=== PATIENT | male | born 1950 | race Caucasian/White ===

== ENCOUNTER 2020-01-05 13:25 | Outpatient (REF) | payer MEDICARE, SELFPAY ==
[2020-01-05 16:28] LABS: MANUAL DIFF FLAG NO
[2020-01-05 16:36] LABS: Basophils Absolute Auto 0.1 X10*3/uL (0.0-0.2); Basophils Percent Auto 0.7 % (0-2); Eosinophils Absolute Auto 0.2 X10*3/uL (0.0-0.4); Eosinophils Percent Auto 2.9 % (0-4); Hematocrit 45.7 % (42-52); Hemoglobin 15.4 g/dl (14.0-18.0); Imm Gran Abs Auto 0.02 X10*3/uL (0.00-0.03); Imm Gran Pct Auto 0.3 % (0.0-0.4); Lymphocytes Absolute Auto 2.1 X10*3/uL (1.2-4.9); Lymphocytes Percent Auto 27.6 % (20-40); Mean Corpuscular HGB Conc 33.7 g/dl (31.0-36.0); Mean Corpuscular Hemoglobin 30.1 pg (27.0-33.0); Mean Corpuscular Volume 89.4 fL (80-98); Mean Platelet Volume 10.8 fL (9.4-12.4); Monocytes Absolute Auto 0.6 X10*3/uL (0.1-1.2); Monocytes Percent Auto 7.9 % (2-11); Neutrophils Absolute Auto 4.6 X10*3/uL (2.0-8.3); Neutrophils Percent Auto 60.6 % (45-73); Platelet Count 238 X10*3/uL (160-400); Red Blood Count 5.11 X10*6/uL (4.60-5.80); Red Cell Distribution Width 14.2 % (11.0-16.0); White Blood Count 7.6 X10*3/uL (4.8-10.8)
[2020-01-05 17:03] LABS: Alanine Aminotransferase 14 U/L (0-40); Albumin Level 4.3 g/dL (3.5-5.0); Alkaline Phosphatase 95 U/L (39-117); Anion Gap 14 (12-20); Aspartate Amino Transferase 13 U/L (5-37); Bilirubin Total 0.4 mg/dL (0.0-1.0); Blood Urea Nitrogen 22 mg/dL (9-16); Calcium 8.9 mg/dL (8.4-10.2); Carbon Dioxide 26 mmol/L (22-29); Chloride 105 mmol/L (96-108); Estimated Glomerular Filt Rate 46; Glucose Random 150 mg/dL (60-115); Potassium 3.9 mmol/l (3.3-5.1); Sodium 141 mmol/L (135-145); Total Protein 6.8 g/dL (6.5-8.0)
== END 2020-01-05 13:26 | disposition home or self-care (01) ==
LOC: HO.HMGCLDS 13:25
PROVIDERS: PCP Internal Medicine; Visit Provider Internal Medicine
DX: B36.0 Pityriasis versicolor (principal); F40.243 Fear of flying; I12.9 Hypertensive chronic kidney disease with stage 1 through stage 4 chronic kidney disease, or unspecified chronic kidney disease; N18.9 Chronic kidney disease, unspecified; R60.0 Localized edema; Z72.0 Tobacco use
CPT/HCPCS: 36415; 80053; 85025

== ENCOUNTER 2020-02-23 09:31 | Outpatient (REF) | payer MEDICARE, SELFPAY ==
--- NOTE | 2020-02-23 09:36 | CT_ITS ---
EXAMINATION: CT CHEST WITHOUT CONTRAST CLINICAL INFORMATION: Malignant neoplasm of the upper lobe, right bronchus. COMPARISON: Multiple priors, most recently 08/16/2019 TECHNIQUE: Multidetector volumetric CT imaging of the chest was done. Axial MIP volume rendering provided. Sagittal and coronal reformatted images were obtained. This CT examination was performed using dose optimization techniques as appropriate, variously including the following: *Automated exposure control *Adjustment of mA and/or kV according to patient size (this includes techniques or standardized protocols for targeted exams where dose is matched to indication/reason for exam; i.e. extremities or head) *Use of iterative reconstruction technique DLP: 150 mGy-cm FINDINGS: BENCH LOOM WEAVER: Right-sided volume loss. LUNGS: Status post right upper lobectomy. Moderate emphysema, mostly centrilobular. No consolidation. No pneumothorax. Unchanged right middle lobe ovoid 0.4 cm nodule on series 7 image 172. 0.3 cm left upper lobe nodule on series 7 image 256 is unchanged. 0.4 cm left upper lobe nodule on series 7 image 286 is unchanged. No new pulmonary nodules. MEDIASTINUM: Normal heart size. No pericardial effusion. No mediastinal lymphadenopathy. Coronary artery calcifications are noted. PLEURA: There is no pleural effusion. No pleural mass or thickening. AXILLA: No lymphadenopathy. UPPER ABDOMEN: Unremarkable. OSSEOUS STRUCTURES: No acute or suspicious osseous abnormality. Mild degenerative changes in the spine. CT/CT chest wo con IMPRESSION: Emphysema. Postsurgical changes of right upper lobectomy. Small pulmonary nodules remain unchanged.
== END 2020-02-23 09:32 | disposition home or self-care (01) ==
LOC: HO.CT 09:31
PROVIDERS: Visit Provider Surgery
DX: C34.11 Malignant neoplasm of upper lobe, right bronchus or lung (principal)
CPT/HCPCS: 71250

== ENCOUNTER → 2020-03-16 09:32 | Outpatient (BNVA) | payer MEDICARE, SELFPAY | PROVIDERS: PCP Internal Medicine; Visit Provider Surgery | DX: C7A.8 Other malignant neuroendocrine tumors (principal) | CPT/HCPCS: 99214 ==

== ENCOUNTER 2020-04-09 13:48 | Outpatient (REF) | payer MEDICARE, SELFPAY ==
[2020-04-09 17:16] LABS: Alanine Aminotransferase 11 U/L (0-40); Albumin Level 4.2 g/dL (3.5-5.0); Alkaline Phosphatase 92 U/L (39-117); Anion Gap 15 (12-20); Aspartate Amino Transferase 13 U/L (5-37); Bilirubin Total 0.3 mg/dL (0.0-1.0); Blood Urea Nitrogen 23 mg/dL (9-16); Calcium 8.9 mg/dL (8.4-10.2); Carbon Dioxide 29 mmol/L (22-29); Chloride 101 mmol/L (96-108); Estimated Glomerular Filt Rate 42; Glucose Random 147 mg/dL (60-115); Sodium 141 mmol/L (135-145)
== END 2020-04-09 13:49 | disposition home or self-care (01) ==
LOC: HO.HMGCLDS 13:48
PROVIDERS: PCP Internal Medicine; Visit Provider Internal Medicine
DX: I12.9 Hypertensive chronic kidney disease with stage 1 through stage 4 chronic kidney disease, or unspecified chronic kidney disease (principal); N18.9 Chronic kidney disease, unspecified
CPT/HCPCS: 36415; 80053

== ENCOUNTER 2020-06-27 13:02 | Outpatient (REF) | payer MEDICARE, SELFPAY ==
[2020-06-27 14:00] LABS: MANUAL DIFF FLAG NO
[2020-06-27 14:04] LABS: Basophils Percent Auto 0.5 % (0-2); Eosinophils Absolute Auto 0.1 X10*3/uL (0.0-0.4); Eosinophils Percent Auto 1.5 % (0-4); Hematocrit 47.3 % (42-52); Hemoglobin 15.4 g/dl (14.0-18.0); Imm Gran Abs Auto 0.03 X10*3/uL (0.00-0.03); Imm Gran Pct Auto 0.4 % (0.0-0.4); Lymphocytes Absolute Auto 1.6 X10*3/uL (1.2-4.9); Lymphocytes Percent Auto 19.1 % (20-40); Mean Corpuscular HGB Conc 32.6 g/dl (31.0-36.0); Mean Corpuscular Hemoglobin 29.5 pg (27.0-33.0); Mean Corpuscular Volume 90.6 fL (80-98); Mean Platelet Volume 10.3 fL (9.4-12.4); Monocytes Absolute Auto 0.7 X10*3/uL (0.1-1.2); Monocytes Percent Auto 8.3 % (2-11); Neutrophils Percent Auto 70.2 % (45-73); Platelet Count 211 X10*3/uL (160-400); Red Blood Count 5.22 X10*6/uL (4.60-5.80); Red Cell Distribution Width 14.1 % (11.0-16.0); White Blood Count 8.6 X10*3/uL (4.8-10.8)
[2020-06-27 14:41] LABS: Albumin Level 4.3 g/dL (3.5-5.0); Anion Gap 17 (12-20); Blood Urea Nitrogen 27 mg/dL (9-16); Carbon Dioxide 24 mmol/L (22-29); Chloride 102 mmol/L (96-108); Estimated Glomerular Filt Rate 39; Magnesium 2.2 mg/dL (1.6-2.6); Potassium 3.9 mmol/L (3.3-5.1); Sodium 139 mmol/L (135-145)
[2020-06-27 15:04] LABS: Vitamin D 25-OH Total 42.8 ng/mL (>30)
[2020-06-27 15:14] LABS: Renal w Reflex Lab Use Only Order verified
[2020-06-27 16:39] LABS: Glucose Urine UA NEG (NEG); Leukocyte Esterase Urine NEG (NEG); Nitrite Urine NEG (NEG); Specific Gravity - Urine 1.025 (1.005-1.025); Urine Blood NEG (NEG); Urine Ketones NEG (NEG); Urine Protein NEG (NEG-TRACE)
[2020-06-27 16:43] LABS: Appearance Urine CLEAR; Color Urine YELLOW
[2020-06-27 17:04] LABS: Creatinine Urine 207.83 mg/dL; Microalbum/Creatinine Ratio Ur 21.1 ug/mg cr; Protein/Creatinine Ratio, Ur 0.06 (<0.2); Total Protein Urine Random 13 mg/dL (<12)
[2020-06-27 17:40] LABS: Mucus Urine TRACE /LPF; RBC Urine 0 /HPF (0); Squamous Epithelial Cell Urine TRACE /LPF; WBC Urine 0 /HPF (0-4)
[2020-06-27 20:24] LABS: Renal w Reflex-LAB USE ONLY Order Verified
[2020-06-28 18:11] LABS: Calcium (PTHI) 9.5 mg/dL (8.6-10.3); PTHI 34 pg/mL (14-64)
== END 2020-06-27 13:03 | disposition home or self-care (01) ==
LOC: HO.HMGCLDS 13:02
PROVIDERS: PCP Internal Medicine; Visit Provider Internal Medicine Nephrology
DX: I12.9 Hypertensive chronic kidney disease with stage 1 through stage 4 chronic kidney disease, or unspecified chronic kidney disease (principal); N18.30 Chronic kidney disease, stage 3 unspecified; E78.5 Hyperlipidemia, unspecified; K21.9 Gastro-esophageal reflux disease without esophagitis
CPT/HCPCS: 36415; 80051; 81001; 82040; 82043; 82306; 82310; 82565; 83735; 83970; 84100; 84156; 84520; 85025

== ENCOUNTER 2020-08-31 06:12 | Outpatient (REF) | payer MEDICARE, SELFPAY ==
[2020-08-31 12:01] LABS: Cholesterol 170 mg/dL; HDL Cholesterol 35 mg/dL; LDL Cholesterol Calculated 87 mg/dl; Triglycerides 244 mg/dL
[2020-08-31 12:23] LABS: Prostate Specific Antigen 0.69 ng/mL (<0.05-4.0)
== END 2020-08-31 06:13 | disposition home or self-care (01) ==
LOC: HO.HMGCLDS 06:12
PROVIDERS: PCP Internal Medicine; Visit Provider Internal Medicine
DX: Z12.5 Encounter for screening for malignant neoplasm of prostate (principal); I12.9 Hypertensive chronic kidney disease with stage 1 through stage 4 chronic kidney disease, or unspecified chronic kidney disease; N18.9 Chronic kidney disease, unspecified; N40.1 Benign prostatic hyperplasia with lower urinary tract symptoms; Z72.0 Tobacco use
CPT/HCPCS: 36415; 80061; 84153; 84443

== ENCOUNTER 2020-12-11 06:07 | Outpatient (REF) | payer MEDICARE, SELFPAY ==
[2020-12-11 12:34] LABS: Prostate Specific Antigen 0.36 ng/mL (<0.05-4.0)
[2020-12-11 12:35] LABS: Alanine Aminotransferase 11 U/L (0-40); Albumin Level 4.1 g/dL (3.5-5.0); Alkaline Phosphatase 81 U/L (39-117); Anion Gap 14 (12-20); Aspartate Amino Transferase 13 U/L (5-37); Bilirubin Total 0.7 mg/dL (0.0-1.0); Blood Urea Nitrogen 27 mg/dL (9-16); Calcium 9.2 mg/dL (8.4-10.2); Carbon Dioxide 23 mmol/L (22-29); Chloride 109 mmol/L (96-108); Cholesterol 169 mg/dL; Estimated Glomerular Filt Rate 42; Glucose Random 124 mg/dL (60-115); HDL Cholesterol 37 mg/dL; LDL Cholesterol Calculated 96 mg/dl; Potassium 4.3 mmol/L (3.3-5.1); Sodium 142 mmol/L (135-145); Total Protein 6.3 g/dL (6.5-8.0); Triglycerides 184 mg/dL
== END 2020-12-11 06:08 | disposition home or self-care (01) ==
LOC: HO.HMGCLDS 06:07
PROVIDERS: PCP Internal Medicine; Visit Provider Internal Medicine
DX: Z12.5 Encounter for screening for malignant neoplasm of prostate (principal); I12.9 Hypertensive chronic kidney disease with stage 1 through stage 4 chronic kidney disease, or unspecified chronic kidney disease; N18.9 Chronic kidney disease, unspecified; J44.9 Chronic obstructive pulmonary disease, unspecified; N40.1 Benign prostatic hyperplasia with lower urinary tract symptoms; Z72.0 Tobacco use
CPT/HCPCS: 36415; 80053; 80061; 84153

== ENCOUNTER 2021-01-14 19:43 | Emergency (ER) | payer MEDICARE, SELFPAY ==
--- NOTE | ~2021-01-14 | XR_ITS ---
EXAMINATION: XR LUMBOSACRAL SPINE CLINICAL INFORMATION: Pain after heavy lifting. Evaluate for fracture. COMPARISON: No similar priors. TECHNIQUE: Three views of the lumbosacral spine. FINDINGS: There are 5 nonrib-bearing lumbar-type vertebral bodies. Anatomic alignment is maintained. There is mild vertebral body height loss at L5 which could be degenerative in nature as there is associated disc space narrowing, facet arthropathy and osteophytes at L5-S1 leading to certain degree of neural foraminal narrowing. There is also disc space narrowing at L2-L3. Other vertebral interdisc spaces are preserved. Nonobstructive bowel gas pattern. Moderate stool burden throughout the colon. Atherosclerotic disease of the abdominal aorta. XR/XR lumbar spine 2-3V IMPRESSION: Mild compression deformity at L5 could be degenerative in nature. Correlate clinically for tenderness at this site. No other compression deformities. Anatomic alignment is maintained. At L5-S1 there is moderate disc space narrowing and bilateral facet arthropathy leading to certain degree of central spinal canal narrowing and neural foraminal encroachment. Involvement of the nerve roots is best assessed with an MR of lumbar spine and this should be considered if clinically indicated. There is also mild to moderate disc space narrowing at L2-L3.
[2021-01-14 19:58] VITALS: BP 142/79; PULSE 98; RESP 18; TEMP 37.3; O2SAT 94; BMI 25.1
[2021-01-14] MEDS: Cyclobenzaprine HCl 10 MG TABLET PO (23:00)
[2021-01-14] MEDS: Ketorolac Tromethamine 15 MG/ML VIAL 30 MG IM (23:01)
--- NOTE | 2021-01-14 23:30 | ED.BACK ---
HPI - Back Pain/Injury General Chief Complaint: Back Pain/Injury Stated Complaint: Back and leg pain Time Seen by Provider: 01/14/21 22:30 Source: patient Mode of arrival: ambulatory Limitations: no limitations History of Present Illness HPI Narrative: Patient presents to ED for lower back pain after heavy lifting. Patient states this occurred yesterday. Denies any cracking or popping sound of lower back pain. Patient Hitting head or loss of consciousness. Patient denies any abdominal pain, dysuria, hematuria, flank pain, fever, chills, nausea, vomiting, or abdominal pain MD elicited complaint: back pain Related Data Home Medications Medication Instructions Recorded Confirmed lisinopril 20 1 tab PO DAILY 03/16/20 03/16/20 mg-hydrochlorothiazide 12.5 mg tablet omeprazole 20 mg capsule,delayed 20 mg PO DAILY 03/16/20 03/16/20 release pravastatin 40 mg tablet 40 mg PO DAILY 03/16/20 03/16/20 tamsulosin 0.4 mg capsule 0.4 mg PO BEDTIME 03/16/20 03/16/20 Previous Rx's Medication Instructions Recorded ketorolac 10 mg tablet 10 mg PO QID PRN 5 Days #20 tab 01/15/21 oxycodone-acetaminophen 5 mg-325 1 tab PO TID PRN #9 tab 01/15/21 mg tablet (Percocet) prednisone 20 mg tablet 60 mg PO DAILY 5 Days #15 tab 01/15/21 Allergies Allergy/AdvReac Type Severity Reaction Status Date / Time Sulfa (Sulfonamide Allergy Severe Fever Verified 01/14/21 21:57 Antibiotics) sulfamethoxazole Allergy Intermediate FEVER Verified 01/14/21 21:57 [From BACTRIM] trimethoprim [From BACTRIM] Allergy Intermediate FEVER Verified 01/14/21 21:57 Review of Systems Review of Systems: Yes all other systems are reviewed and are negative Constitutional: Constitutional: Reports as per HPI and Reports no additional constitutional complaints Eyes: Eyes: Reports as per HPI and Reports no additional eye complaints ENT: Reports system reviewed and no additional complaints, except as documented and Reports as per HPI Cardiovascular: Cardiovascular: Reports as per HPI and Reports no additional cardiovascular complaints Respiratory: Respiratory: Reports as per HPI and Reports no additional respiratory complaints Gastrointestinal: Gastrointestinal: Reports as per HPI and Reports no additional gastrointestinal complaints Genitourinary: Genitourinary: Reports no additional male genitourinary complaints and Reports as per HPI Musculoskeletal: Musculoskeletal: Reports no additional musculoskeletal complaints, Reports as per HPI and Reports back pain Neurologic: Reports system reviewed and no additional complaints, except as documented and Reports as per HPI Psychiatric: Psychiatric: Reports no additional psychiatric complaints and Reports as per HPI [facility]LY [facility] Past Medical History Medical History Anxiety BPH (benign prostatic hyperplasia) CKD (chronic kidney disease) Diverticulosis Emphysema lung GERD (gastroesophageal reflux disease) Hyperlipidemia Hypertension IFG (impaired fasting glucose) Lumbar radiculopathy Neuroendocrine cancer AUBRIE (obstructive sleep apnea) Primary cancer of right upper lobe of lung Smoker Surgical History History of lobectomy of lung Social History Social History Advance Directives: No Physical Exam Vital Signs: Vital Signs: Last Vital Signs Temp 97.9 F 01/14/21 23:44 Pulse 85 01/14/21 23:44 Resp 20 01/14/21 23:44 BP 179/84 H 01/14/21 23:44 Pulse Ox 96 01/14/21 23:44 Body Mass Index 25.1 Const: General: cooperative, healthy appearing, comfortable, no acute distress, well developed, alert, awake and Physically active Orientation/consciousness: patient oriented x3 HENMT: Head: Yes normal to inspection, Yes No palpable skull fracture present, Yes normocephalic, Yes atraumatic and No abrasion Eyes: General: appearance normal, both eyes and all related structures Neck: Neck: Yes normal visual inspection, Yes full ROM, Yes no lymphadenopathy, Yes no meningeal signs, Yes trachea midline, Yes supple and No tender Chest: Chest palpation & inspection: normal inspection of the chest and normal palpation of entire chest wall Resp: Effort & Inspection: normal respiratory effort and able to speak in complete sentences Auscultation: clear to auscultation bilaterally Cardio: Jugular venous distension: no JVD Heart sounds: S1 normal heart sound present and S2 normal heart sound present GI: Inspection: Yes normal to inspection and No abdominal wall ecchymosis Palpation (GI): Soft to palpation, not firm, nontender, no guarding and not rigid : General: No CVA tenderness and Yes no CVA tenderness Back/Spine/Pelvis: Back: no CVA tenderness, No CVA tenderness and back tenderness (left lateral lumbar muscular pain.) Skin: General skin exam: no rashes or lesions noted and elasticity normal Neuro: General: patient oriented x3, gait normal, no meningeal signs and CN's II-XI intact bilaterally Cranial nerves: Yes CN's II-XII intact bilaterally Extrem: General: Yes normal to inspection and Yes full ROM Psych: Appearance: grossly normal, well kempt and not disheveled Course Course Course Narrative: Patient sent for lumbar x-ray. Toradol and flexeril ordered. Reevaluation(s) Reevaluation #1: X-ray shows severe arthritis with possible nerve impingement. not Suspecting cauda equinus syndrome or epidural abscess. Will discharge with pain meds. Patient informed to follow-up with primary care provider for MRI and possible referral to spine surgeon. Patient given report of x-ray to give the PCP. Time: 12:29 MDM - Back Pain/Injury MDM Narrative Medical decision making narrative: Lumbar radiculopathy Discharge Plan Discharge Clinical Impression: Lumbar radiculopathy Patient Disposition: Home, Self-Care Instructions: Lumbar Radiculopathy (ED) Additional Instructions: X-ray shows severe arthritis with possible nerve impingement. You will need an MRI for further evaluation. Please follow-up with primary care provider immediately. Return to the ED for any urinary/bowel incontinence, severe back pain, paralysis of extremities, abdominal pain, nausea, vomiting, fever, chills, or any other concerning symptoms. Prescriptions: New ketorolac 10 mg tablet 10 mg PO QID PRN (Reason: pain) 5 Days Qty: 20 RF: 0 prednisone 20 mg tablet 60 mg PO DAILY 5 Days Qty: 15 RF: 0 oxycodone-acetaminophen [Percocet] 5-325 mg tablet 1 tab PO TID PRN (Reason: pain) Qty: 9 RF: 0 No Action lisinopril-hydrochlorothiazide 20-12.5 mg tablet 1 tab PO DAILY RF: 0 tamsulosin 0.4 mg capsule 0.4 mg PO BEDTIME RF: 0 pravastatin 40 mg tablet 40 mg PO DAILY RF: 0 omeprazole 20 mg capsule,delayed release(DR/EC) 20 mg PO DAILY RF: 0 Stand Alone Forms: Work/School Release Interventions: ED Discharge Assessment Last Done: 01/15/21 01:02 Discharge Date/Time: 01/15/21 01:10 Print Language: Pashto
[2021-01-14 23:44] VITALS: BP 179/84; PULSE 85; RESP 20; TEMP 36.6; O2SAT 96
[2021-01-15] MEDS: oxyCODONE HCl Immed Release 5 MG TABLET PO (00:03)
== END 2021-01-15 01:10 | disposition home or self-care (01) ==
PROVIDERS: Emergency Provider Internal Medicine; PCP Internal Medicine
DX: M54.16 Radiculopathy, lumbar region (principal); I12.9 Hypertensive chronic kidney disease with stage 1 through stage 4 chronic kidney disease, or unspecified chronic kidney disease; N18.9 Chronic kidney disease, unspecified
CPT/HCPCS: 72100; 96372; 99284; J1885

== ENCOUNTER 2021-02-15 10:57 | Outpatient (REF) | payer MEDICARE, SELFPAY ==
[2021-02-15 14:00] LABS: Hematocrit 47.3 % (42.0-52.0); Hemoglobin 15.4 g/dl (14.0-18.0); Mean Corpuscular HGB Conc 32.6 g/dl (31.0-36.0); Mean Corpuscular Hemoglobin 29.4 pg (27.0-33.0); Mean Corpuscular Volume 90.3 fL (80.0-98.0); Mean Platelet Volume 10.4 fL (9.4-12.4); Platelet Count 299 X10*3/uL (160-400); Red Blood Count 5.24 X10*6/uL (4.60-5.80); Red Cell Distribution Width 14.2 % (11.0-16.0); White Blood Count 8.2 X10*3/uL (4.8-10.8)
[2021-02-15 14:11] LABS: Appearance Urine CLEAR; Color Urine YELLOW; Glucose Urine UA NEG (NEG); Leukocyte Esterase Urine NEG (NEG); Nitrite Urine NEG (NEG); PH 5.5 (5.0-8.0); Urine Blood NEG (NEG); Urine Ketones NEG (NEG); Urine Protein NEG (NEG-TRACE)
[2021-02-15 14:21] LABS: Albumin Level 4.6 g/dL (3.5-5.0); Anion Gap 15 (12-20); Blood Urea Nitrogen 29 mg/dL (9-16); Calcium 9.4 mg/dL (8.4-10.2); Carbon Dioxide 24 mmol/L (22-29); Chloride 103 mmol/L (96-108); Estimated Glomerular Filt Rate 40; Magnesium 2.3 mg/dL (1.6-2.6); Phosphorus 3.1 mg/dL (2.7-4.5); Potassium 4.2 mmol/L (3.3-5.1); Sodium 138 mmol/L (135-145)
[2021-02-15 14:25] LABS: RBC Urine 0 /HPF (0); Squamous Epithelial Cell Urine TRACE /LPF; WBC Urine 0 /HPF (0-4)
[2021-02-15 14:27] LABS: Creatinine Urine 103.09 mg/dL; Microalbum/Creatinine Ratio Ur 6.7 ug/mg cr; Total Protein Urine Random < 7 mg/dL (<12)
[2021-02-15 14:42] LABS: Vitamin D 25-OH Total 56.7 ng/mL (>30)
[2021-02-18 12:01] LABS: Calcium (PTHI) 9.8 mg/dL (8.6-10.3); PTHI 33 pg/mL (14-64)
== END 2021-02-15 10:58 | disposition home or self-care (01) ==
LOC: HO.HMGCLDS 10:57
PROVIDERS: PCP Internal Medicine; Visit Provider Internal Medicine Nephrology
DX: E78.5 Hyperlipidemia, unspecified (principal); I12.9 Hypertensive chronic kidney disease with stage 1 through stage 4 chronic kidney disease, or unspecified chronic kidney disease; N18.32 Chronic kidney disease, stage 3b
CPT/HCPCS: 36415; 80051; 81001; 82040; 82043; 82306; 82310; 82565; 83735; 83970; 84100; 84156; 84520; 85027; 87086

== ENCOUNTER 2021-02-18 06:04 | Outpatient (REF) | payer MEDICARE, SELFPAY ==
--- NOTE | ~2021-02-18 | CT_ITS ---
EXAMINATION: CT CHEST WITHOUT CONTRAST CLINICAL INFORMATION: Neuroendocrine carcinoma COMPARISON: Previous chest CT scans most recent February 2020 TECHNIQUE: Multidetector volumetric CT imaging of the chest was done. Axial MIP volume rendering provided. Sagittal and coronal reformatted images were obtained. This CT examination was performed using dose optimization techniques as appropriate, variously including the following: *Automated exposure control *Adjustment of mA and/or kV according to patient size (this includes techniques or standardized protocols for targeted exams where dose is matched to indication/reason for exam; i.e. extremities or head) *Use of iterative reconstruction technique DLP: 164 mGy-cm FINDINGS: LUNGS: There is evidence of emphysema. There are postoperative changes from right upper lobe lobectomy. There are small pulmonary nodules that are stable, largest measuring 4 mm in the right upper lobe axial image 144 series 5. No new pulmonary nodule is seen. MEDIASTINUM: There is coronary artery calcification. The mediastinum is otherwise normal. PLEURA: There is no pleural effusion. No pleural mass or thickening. AXILLA: No lymphadenopathy. UPPER ABDOMEN: Unremarkable. OSSEOUS STRUCTURES: There are mild degenerative changes of the spine. CT/CT chest wo con IMPRESSION: Emphysema. Stable postsurgical changes following right upper lobe lobectomy. Small pulmonary nodules or micronodules.
[2021-02-18 11:42] LABS: MANUAL DIFF FLAG NO
[2021-02-18 11:54] LABS: Basophils Absolute Auto 0.1 X10*3/uL (0.0-0.2); Basophils Percent Auto 0.7 % (0-2); Eosinophils Absolute Auto 0.3 X10*3/uL (0.0-0.4); Eosinophils Percent Auto 2.6 % (0-4); Hematocrit 47.2 % (42.0-52.0); Hemoglobin 14.9 g/dl (14.0-18.0); Imm Gran Abs Auto 0.04 X10*3/uL (0.00-0.03); Imm Gran Pct Auto 0.4 % (0.0-0.4); Lymphocytes Absolute Auto 2.2 X10*3/uL (1.2-4.9); Lymphocytes Percent Auto 22.5 % (20-40); Mean Corpuscular HGB Conc 31.6 g/dl (31.0-36.0); Mean Platelet Volume 10.7 fL (9.4-12.4); Monocytes Absolute Auto 1.1 X10*3/uL (0.1-1.2); Monocytes Percent Auto 10.8 % (2-11); Neutrophils Absolute Auto 6.2 x10*3/uL (2.0-8.3); Platelet Count 278 X10*3/uL (160-400); Red Blood Count 5.13 X10*6/uL (4.60-5.80); White Blood Count 9.8 X10*3/uL (4.8-10.8)
[2021-02-18 12:23] LABS: Alanine Aminotransferase 17 U/L (0-40); Albumin Level 4.4 g/dL (3.5-5.0); Alkaline Phosphatase 69 U/L (39-117); Anion Gap 19 (12-20); Aspartate Amino Transferase 16 U/L (5-37); Bilirubin Total 0.7 mg/dL (0.0-1.0); Blood Urea Nitrogen 28 mg/dL (9-16); Calcium 9.5 mg/dL (8.4-10.2); Carbon Dioxide 23 mmol/L (22-29); Chloride 106 mmol/L (96-108); Cholesterol 164 mg/dL; Estimated Glomerular Filt Rate 40; Glucose Random 125 mg/dL (60-115); HDL Cholesterol 38 mg/dL; LDL Cholesterol Calculated 86 mg/dl; Potassium 4.7 mmol/L (3.3-5.1); Sodium 143 mmol/L (135-145); Total Protein 6.9 g/dL (6.5-8.0); Triglycerides 204 mg/dL
[2021-02-18 12:29] LABS: Thyroid Stimulating Hormone 1.19 uIU/mL (0.32-4.0)
== END 2021-02-18 06:05 | disposition home or self-care (01) ==
LOC: HO.CT 06:04
PROVIDERS: PCP Internal Medicine; Visit Provider Surgery
DX: C7A.8 Other malignant neuroendocrine tumors (principal); E78.00 Pure hypercholesterolemia, unspecified; I10 Essential (primary) hypertension; M51.16 Intervertebral disc disorders with radiculopathy, lumbar region; R53.83 Other fatigue
CPT/HCPCS: 36415; 71250; 80053; 80061; 84443; 85025

== ENCOUNTER → 2021-03-08 10:13 | Outpatient (BNVA) | payer MEDICARE, SELFPAY | PROVIDERS: PCP Internal Medicine; Visit Provider Surgery | DX: C7A.8 Other malignant neuroendocrine tumors (principal); Z79.899 Other long term (current) drug therapy; Z79.891 Long term (current) use of opiate analgesic | CPT/HCPCS: 99212 ==

== ENCOUNTER 2021-03-19 07:57 | Outpatient (REF) | payer MEDICARE, SELFPAY ==
--- NOTE | ~2021-03-19 | MR_ITS ---
EXAMINATION: MR LUMBAR SPINE WITHOUT CONTRAST CLINICAL INFORMATION: Lumbar radiculopathy. History of lung carcinoma. Low back pain. COMPARISON: Lumbar spine radiographs 01/14/2021. TECHNIQUE: MRI of the lumbar spine was obtained using routine sequences without contrast. FINDINGS: Alignment is normal. Vertebral body heights are preserved. There are type II degenerative endplate changes at L2-L3. No acute bone marrow signal changes. There is slight loss of intervertebral disc height and T2 signal intensity at multiple levels related to disc degeneration. The tip of the conus medullaris is located at L1. No mass effect on the conus. Visualized distal cord signal intensity is normal. At L1-L2 the annular contour is normal. No canal or neuroforaminal compromise. At L2-L3 there is a slightly bulging disc. No canal stenosis. No mass effect on the traversing or foraminal nerve roots. At L3-L4 there is a shallow left subarticular protrusion superimposed upon a slightly bulging disc causing subtle abutment of the left traversing L4 nerve roots. No canal stenosis. No foraminal nerve root compression. At L4-L5 there is a right foraminal extrusion superimposed upon a bulging disc causing severe compression of the right L4 foraminal nerve root. No canal stenosis. Subarticular zone narrowing causes subtle abutment of both traversing L5 nerve roots. At L5-S1 the annular contour is normal. Bilateral facet degenerative change. No canal stenosis. No mass effect on the traversing or foraminal nerve roots. 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 There is a well marginated benign-appearing cystic lesion arising from the lower pole of the right kidney. There is a questionable rounded solid lesion within the left kidney measuring 1.7 cm in diameter. MR/MR lumbar spine wo con IMPRESSION: Disc degeneration at multiple levels within the lumbar spine. A right foraminal extrusion at L4-L5 causes severe compression of the right L4 foraminal nerve root. There is also subtle abutment of both traversing L5 nerve roots related to degenerative changes at L4-L5 and a shallow left subarticular protrusion at L3-L4 causing subtle abutment on the left traversing L4 nerve roots. Of note there is a rounded 1.7 cm nonspecific lesion within the left kidney that does not appear to represent a simple cyst. This finding is worrisome for a solid lesion. A dedicated dynamic contrast enhanced CT or MRI of the kidneys is recommended for better anatomic characterization.
== END 2021-03-19 07:58 | disposition home or self-care (01) ==
LOC: HO.MRI 07:57
PROVIDERS: PCP Internal Medicine; Visit Provider Internal Medicine
DX: M54.16 Radiculopathy, lumbar region (principal); Z85.118 Personal history of other malignant neoplasm of bronchus and lung
CPT/HCPCS: 72148

== ENCOUNTER 2021-04-10 14:34 | Outpatient (REF) | payer MEDICARE, SELFPAY ==
--- NOTE | ~2021-04-10 | US_ITS ---
EXAMINATION: US RETROPERITONEAL LIMITED (RENAL ONLY) CLINICAL INFORMATION: Hyperlipidemia. Hypertension. COMPARISON: Renal ultrasound 11/23/2018. CT chest 08/16/2019. CT PET exam 02/18/2018. TECHNIQUE: Real-time imaging of the kidneys. FINDINGS: RIGHT KIDNEY: 10.6 x 8.4 x 7.4 cm (SAG x AP x TRV). The kidney is normal in size, contour, and echogenicity. Renal cortical thickness is normal. No renal calculi or hydronephrosis. There is an anechoic cyst with posterior septation in the midpole measuring 7.4 x 5.4 x 6.6 cm. Previously it measured 6.5 x 4.9 x 7.0 cm. In addition, there is a simple cyst adjacent to it measuring 3.6 x 2.4 x 3.1 cm. Previously it measured 3.2 x 2.8 x 2.5 cm. LEFT KIDNEY: 9.8 x 4.8 x 4.9 cm (SAG x AP x TRV). The kidney is normal in size, contour, and echogenicity. Renal cortical thickness is normal. No hydronephrosis. There are several anechoic cysts. An upper pole cyst measures 1.0 x 0.77 x 1.0 cm and upper pole lateral cyst measuring 2.1 x 1.7 x 1.9 cm. Two midpole cysts measure 1.3 x 1.3 x 1.0 cm and 0.4 x 0.16 x 0.34 cm. There is a solid hyperechoic lesion in the midpole measuring 1 7 x 1.6 x 1.5 cm with increased vascularity. The lesion was not described on the previous ultrasound or partially visualized kidneys on the previous CT chest exams. US/US renal BI IMPRESSION: 1. Bilateral simple renal cysts. A complex cyst with septation midpole right kidney. 2. Barely visible hyperechoic slightly vascular lesion midpole left kidney not visualized on previous ultrasound or previous CT PET exam or CT chest exam 08/16/2019. Differential diagnosis may include angiomyolipoma, renal cell carcinoma or a complicated cyst. Recommend CT kidneys with contrast with and without and delayed images.
== END 2021-04-10 14:35 | disposition home or self-care (01) ==
LOC: HO.HMGCX 14:34
PROVIDERS: PCP Internal Medicine; Visit Provider Internal Medicine
DX: I10 Essential (primary) hypertension (principal); E78.5 Hyperlipidemia, unspecified; K21.9 Gastro-esophageal reflux disease without esophagitis
CPT/HCPCS: 76775

== ENCOUNTER 2021-06-10 05:59 | Outpatient (REF) | payer MEDICARE, SELFPAY ==
[2021-06-10 11:59] LABS: Alanine Aminotransferase 11 U/L (0-40); Albumin Level 4.3 g/dL (3.5-5.0); Alkaline Phosphatase 74 U/L (39-117); Anion Gap 10 (12-20); Aspartate Amino Transferase 12 U/L (5-37); Bilirubin Total 0.5 mg/dL (0.0-1.0); Blood Urea Nitrogen 29 mg/dL (9-16); Calcium 9.4 mg/dL (8.4-10.2); Carbon Dioxide 30 mmol/L (22-29); Chloride 105 mmol/L (96-108); Estimated Glomerular Filt Rate 38; Glucose Random 126 mg/dL (60-115); Potassium 4.4 mmol/L (3.3-5.1); Sodium 141 mmol/L (135-145); Total Protein 6.8 g/dL (6.5-8.0)
== END 2021-06-10 06:00 | disposition home or self-care (01) ==
LOC: HO.HMGCLDS 05:59
PROVIDERS: Visit Provider Internal Medicine
DX: E78.00 Pure hypercholesterolemia, unspecified (principal); I12.9 Hypertensive chronic kidney disease with stage 1 through stage 4 chronic kidney disease, or unspecified chronic kidney disease; N18.9 Chronic kidney disease, unspecified; M51.16 Intervertebral disc disorders with radiculopathy, lumbar region; F17.210 Nicotine dependence, cigarettes, uncomplicated
CPT/HCPCS: 36415; 80053

== ENCOUNTER → 2021-07-16 15:01 | Outpatient (BNVA) | payer MEDICARE, SELFPAY | PROVIDERS: PCP Internal Medicine; Visit Provider Urology | DX: N40.1 Benign prostatic hyperplasia with lower urinary tract symptoms (principal); R39.12 Poor urinary stream; N28.1 Cyst of kidney, acquired | CPT/HCPCS: 99212 ==

== ENCOUNTER 2021-09-03 06:25 | Outpatient (REF) | payer MEDICARE, SELFPAY ==
[2021-09-03 11:21] LABS: MANUAL DIFF FLAG NO
[2021-09-03 11:34] LABS: Basophils Absolute Auto 0.1 X10*3/uL (0.0-0.2); Basophils Percent Auto 0.6 % (0-2); Eosinophils Absolute Auto 0.3 X10*3/uL (0.0-0.4); Eosinophils Percent Auto 2.5 % (0-4); Hematocrit 47.9 % (42.0-52.0); Hemoglobin 15.4 g/dl (14.0-18.0); Imm Gran Abs Auto 0.04 X10*3/uL (0.00-0.03); Imm Gran Pct Auto 0.4 % (0.0-0.4); Lymphocytes Absolute Auto 1.9 X10*3/uL (1.2-4.9); Lymphocytes Percent Auto 17.9 % (20-40); Mean Corpuscular HGB Conc 32.2 g/dl (31.0-36.0); Mean Corpuscular Hemoglobin 29.7 pg (27.0-33.0); Mean Corpuscular Volume 92.3 fL (80.0-98.0); Mean Platelet Volume 10.9 fL (9.4-12.4); Monocytes Percent Auto 9.8 % (2-11); Neutrophils Absolute Auto 7.2 x10*3/uL (2.0-8.3); Neutrophils Percent Auto 68.8 % (45-73); Platelet Count 218 X10*3/uL (160-400); Red Blood Count 5.19 X10*6/uL (4.60-5.80); Red Cell Distribution Width 14.3 % (11.0-16.0); White Blood Count 10.5 X10*3/uL (4.8-10.8)
[2021-09-03 12:06] LABS: Alanine Aminotransferase 22 U/L (0-40); Albumin Level 4.2 g/dL (3.5-5.0); Alkaline Phosphatase 71 U/L (39-117); Anion Gap 14 (12-20); Aspartate Amino Transferase 19 U/L (5-37); Bilirubin Total 0.6 mg/dL (0.0-1.0); Blood Urea Nitrogen 35 mg/dL (9-16); Calcium 9.5 mg/dL (8.4-10.2); Carbon Dioxide 25 mmol/L (22-29); Chloride 106 mmol/L (96-108); Cholesterol 184 mg/dL; Estimated Glomerular Filt Rate 31; Glucose Random 150 mg/dL (60-115); HDL Cholesterol 40 mg/dL; LDL Cholesterol Calculated 99 mg/dl; Sodium 141 mmol/L (135-145); Total Protein 6.9 g/dL (6.5-8.0); Triglycerides 227 mg/dL
[2021-09-03 12:14] LABS: Prostate Specific Antigen 0.72 ng/mL (<0.05-4.0)
== END 2021-09-03 06:26 | disposition home or self-care (01) ==
LOC: HO.HMGCLDS 06:25
PROVIDERS: Visit Provider Internal Medicine
DX: Z12.5 Encounter for screening for malignant neoplasm of prostate (principal); D41.12 Neoplasm of uncertain behavior of left renal pelvis; I12.9 Hypertensive chronic kidney disease with stage 1 through stage 4 chronic kidney disease, or unspecified chronic kidney disease; N18.9 Chronic kidney disease, unspecified; N28.1 Cyst of kidney, acquired; N40.1 Benign prostatic hyperplasia with lower urinary tract symptoms
CPT/HCPCS: 36415; 80053; 80061; 84153; 85025

== ENCOUNTER 2021-09-04 07:29 | Outpatient (REF) | payer MEDICARE, SELFPAY ==
--- NOTE | ~2021-09-04 | CT_ITS ---
EXAMINATION: CT ABDOMEN WITHOUT CONTRAST CLINICAL INFORMATION: Cyst of kidney. COMPARISON: Ultrasound kidneys 04/10/2021. TECHNIQUE: Contiguous axial thin section helical images of the abdomen were performed without contrast. The data set was reformatted in the coronal and sagittal planes and reviewed on an independent workstation. This CT examination was performed using dose optimization techniques as appropriate, variously including the following: *Automated exposure control *Adjustment of mA and/or kV according to patient size (this includes techniques or standardized protocols for targeted exams where dose is matched to indication/reason for exam; i.e. extremities or head) *Use of iterative reconstruction technique DLP: 255 mGy-cm FINDINGS: LUNG BASES: Minimal atelectatic changes are seen in the lingula. LIVER, GALLBLADDER, BILIARY TREE: The liver is normal size, contour and density. No focal lesion or intrahepatic ductal dilatation seen. PANCREAS: The pancreas is normal size and density. No peripancreatic fat stranding seen. SPLEEN: The spleen is unremarkable. ADRENAL GLANDS AND KIDNEYS: Bilateral adrenal glands are symmetrical and normal. There is a bilobed or solitary cyst by a septation in lower pole right kidney measuring 8.9 x 6.6 x 7.4 cm. On last ultrasound these cysts appear separate. Medial to the bilobed cyst is a hyperdense lesion measuring 1.4 cm and 66 Hounsfield units suggestive of complex cyst. There is a vascular calcification in the left renal hilum. No radiopaque calculi or hydronephrosis seen. Mild bilateral perinephric stranding is seen. BOWEL LOOPS: There is scattered stool and gas seen throughout the colon without distention. The small bowel loops are normal caliber. Appendix is not visualized or likely not in the [id number]. The small bowel loops are normal caliber. The stomach is nondistended. LYMPH NODES: No abnormal retroperitoneal lymph nodes seen. VASCULAR: The aorta is atherosclerotic and nondilated. BONES: Mild degenerative disc changes with moderate spondylosis L2-L3 disc level. There is mild spondylosis as well at the L3-L4 and L4-L5 disc levels. No aggressive lytic or sclerotic process seen. CT/CT abdomen wo con IMPRESSION: Large lobulated cyst lower pole right kidney with adjacent hyperdense cyst. This is likely a hemorrhagic or proteinaceous cyst. Fleischner guidelines were followed.
== END 2021-09-04 07:30 | disposition home or self-care (01) ==
LOC: HO.CT 07:29
PROVIDERS: PCP Internal Medicine; Visit Provider Urology
DX: N28.1 Cyst of kidney, acquired (principal)
CPT/HCPCS: 74150

== ENCOUNTER → 2021-09-13 10:53 | Outpatient (BNVA) | payer MEDICARE, SELFPAY | PROVIDERS: PCP Internal Medicine; Visit Provider Urology | DX: N40.1 Benign prostatic hyperplasia with lower urinary tract symptoms (principal); R39.12 Poor urinary stream; N28.1 Cyst of kidney, acquired | CPT/HCPCS: 51798; 99212 ==

== ENCOUNTER 2021-11-15 10:34 | Outpatient (REF) | payer MEDICARE, SELFPAY ==
[2021-11-15 13:56] LABS: MANUAL DIFF FLAG NO
[2021-11-15 14:00] LABS: Appearance Urine HAZY; Color Urine YELLOW; Glucose Urine UA NEG (NEG); Leukocyte Esterase Urine NEG (NEG); Nitrite Urine NEG (NEG); Specific Gravity - Urine <= 1.005 (1.005-1.025); Urine Blood NEG (NEG); Urine Ketones NEG (NEG); Urine Protein NEG (NEG-TRACE)
[2021-11-15 14:07] LABS: Basophils Percent Auto 0.5 % (0-2); Eosinophils Absolute Auto 0.2 X10*3/uL (0.0-0.4); Hematocrit 47.4 % (42.0-52.0); Hemoglobin 15.4 g/dl (14.0-18.0); Imm Gran Abs Auto 0.03 X10*3/uL (0.00-0.03); Imm Gran Pct Auto 0.4 % (0.0-0.4); Lymphocytes Absolute Auto 1.9 X10*3/uL (1.2-4.9); Lymphocytes Percent Auto 23.2 % (20-40); Mean Corpuscular HGB Conc 32.5 g/dl (31.0-36.0); Mean Corpuscular Hemoglobin 29.6 pg (27.0-33.0); Mean Corpuscular Volume 91.2 fL (80.0-98.0); Mean Platelet Volume 10.5 fL (9.4-12.4); Monocytes Absolute Auto 0.7 X10*3/uL (0.1-1.2); Monocytes Percent Auto 9.1 % (2-11); Neutrophils Absolute Auto 5.2 x10*3/uL (2.0-8.3); Neutrophils Percent Auto 63.8 % (45-73); Platelet Count 222 X10*3/uL (160-400); Red Cell Distribution Width 14.4 % (11.0-16.0); White Blood Count 8.1 X10*3/uL (4.8-10.8)
[2021-11-15 14:13] LABS: RBC Urine 0 /HPF (0); WBC Urine 0 /HPF (0-4)
[2021-11-15 14:29] LABS: Albumin Level 4.4 g/dL (3.5-5.0); Anion Gap 16 (12-20); Blood Urea Nitrogen 28 mg/dL (9-16); Carbon Dioxide 25 mmol/L (22-29); Chloride 103 mmol/L (96-108); Estimated Glomerular Filt Rate 42; Magnesium 2.2 mg/dL (1.6-2.6); Phosphorus 2.8 mg/dL (2.7-4.5); Potassium 4.3 mmol/L (3.3-5.1); Sodium 140 mmol/L (135-145)
[2021-11-15 14:40] LABS: Vitamin D 25-OH Total 49.2 ng/mL (>30)
[2021-11-15 14:45] LABS: Creatinine Urine 50.88 mg/dL; Microalbum/Creatinine Ratio Ur 9.8 ug/mg cr; Total Protein Urine Random < 7 mg/dL (<12)
[2021-11-20 07:13] LABS: Calcium (PTHI) 9.3 mg/dL (8.6-10.3)
== END 2021-11-15 10:35 | disposition home or self-care (01) ==
LOC: HO.HMGCLDS 10:34
PROVIDERS: PCP Internal Medicine; Visit Provider Internal Medicine Nephrology
DX: I12.9 Hypertensive chronic kidney disease with stage 1 through stage 4 chronic kidney disease, or unspecified chronic kidney disease (principal); N18.32 Chronic kidney disease, stage 3b
CPT/HCPCS: 36415; 80051; 81001; 82040; 82043; 82306; 82310; 82565; 83735; 83970; 84100; 84156; 84520; 85025; 87086

== ENCOUNTER 2021-12-02 06:01 | Outpatient (REF) | payer MEDICARE, SELFPAY ==
[2021-12-02 11:55] LABS: Alanine Aminotransferase 12 U/L (0-40); Albumin Level 4.2 g/dL (3.5-5.0); Alkaline Phosphatase 76 U/L (39-117); Anion Gap 15 (12-20); Aspartate Amino Transferase 13 U/L (5-37); Bilirubin Total 0.7 mg/dL (0.0-1.0); Blood Urea Nitrogen 40 mg/dL (9-16); Calcium 9.3 mg/dL (8.4-10.2); Carbon Dioxide 25 mmol/L (22-29); Chloride 106 mmol/L (96-108); Estimated Glomerular Filt Rate 33; Glucose Random 135 mg/dL (60-115); Potassium 4.3 mmol/L (3.3-5.1); Sodium 142 mmol/L (135-145); Total Protein 6.7 g/dL (6.5-8.0)
[2021-12-02 12:22] LABS: Estimated Average Glucose 154 mg/dL
== END 2021-12-02 06:02 | disposition home or self-care (01) ==
LOC: HO.HMGCLDS 06:01
PROVIDERS: PCP Internal Medicine; Visit Provider Internal Medicine
DX: Z00.01 Encounter for general adult medical examination with abnormal findings (principal); E78.00 Pure hypercholesterolemia, unspecified; I12.9 Hypertensive chronic kidney disease with stage 1 through stage 4 chronic kidney disease, or unspecified chronic kidney disease; N18.9 Chronic kidney disease, unspecified; J44.9 Chronic obstructive pulmonary disease, unspecified; R73.01 Impaired fasting glucose; Z72.0 Tobacco use
CPT/HCPCS: 36415; 80053; 83036

== ENCOUNTER 2022-02-24 06:52 | Outpatient (REF) | payer MEDICARE, SELFPAY ==
[2022-02-24 12:09] LABS: Alanine Aminotransferase 11 U/L (0-40); Albumin Level 4.4 g/dL (3.5-5.0); Alkaline Phosphatase 72 U/L (39-117); Anion Gap 13 (12-20); Aspartate Amino Transferase 11 U/L (5-37); Bilirubin Total 0.7 mg/dL (0.0-1.0); Blood Urea Nitrogen 35 mg/dL (9-16); Calcium 9.6 mg/dL (8.4-10.2); Carbon Dioxide 27 mmol/L (22-29); Chloride 106 mmol/L (96-108); Cholesterol 151 mg/dL; Estimated Glomerular Filt Rate 38; Glucose Random 120 mg/dL (60-115); HDL Cholesterol 32 mg/dL; LDL Cholesterol Calculated 83 mg/dl; Sodium 141 mmol/L (135-145); Total Protein 6.8 g/dL (6.5-8.0); Triglycerides 184 mg/dL
[2022-02-24 12:27] LABS: Creatinine Urine 122.45 mg/dL
[2022-02-24 12:30] LABS: Estimated Average Glucose 151 mg/dL; Hemoglobin A1c % 6.9 %
== END 2022-02-24 06:53 | disposition home or self-care (01) ==
LOC: HO.HMGCLDS 06:52
PROVIDERS: PCP Internal Medicine; Visit Provider Internal Medicine
DX: I12.9 Hypertensive chronic kidney disease with stage 1 through stage 4 chronic kidney disease, or unspecified chronic kidney disease (principal); E11.22 Type 2 diabetes mellitus with diabetic chronic kidney disease; N18.9 Chronic kidney disease, unspecified; E78.2 Mixed hyperlipidemia; Z72.0 Tobacco use
CPT/HCPCS: 36415; 80053; 80061; 82043; 83036

== ENCOUNTER 2022-02-28 07:57 | Outpatient (REF) | payer MEDICARE, SELFPAY ==
--- NOTE | ~2022-02-28 | CT_ITS ---
EXAMINATION: CT CHEST WITHOUT CONTRAST CLINICAL INFORMATION: Malignant neuroendocrine tumor COMPARISON: Previous chest CT most recent February 2021 TECHNIQUE: Multidetector volumetric CT imaging of the chest was done. Axial MIP volume rendering provided. Sagittal and coronal reformatted images were obtained. This CT examination was performed using dose optimization techniques as appropriate, variously including the following: *Automated exposure control *Adjustment of mA and/or kV according to patient size (this includes techniques or standardized protocols for targeted exams where dose is matched to indication/reason for exam; i.e. extremities or head) *Use of iterative reconstruction technique DLP: 169 mGy-cm FINDINGS: CHANGE MANAGER: LUNGS: Postsurgical changes from right upper lobe lobectomy. Emphysema. Stable small pulmonary nodules, largest measuring 4 mm in the right middle lobe axial image 180 series. No new pulmonary nodule. MEDIASTINUM: Small mediastinal lymph nodes similar to previous exam. Normal heart size. No pericardial effusion. Atherosclerotic disease. Normal caliber thoracic aorta. CORONARY ARTERY CALCIFICATION: Moderate PLEURA: There is no pleural effusion. No pleural mass or thickening. AXILLA: No lymphadenopathy. UPPER ABDOMEN: Right renal cyst. Small right upper pole renal stone. Lobulated contour medial lower right kidney. Compared with prior exam February 2019 this may represent a hyperdense cyst. OSSEOUS STRUCTURES: Degenerative changes of the spine. Old left rib fractures. CT/CT chest wo IV con IMPRESSION: Stable postsurgical changes from right upper lobe lobectomy. Emphysema. Stable small pulmonary nodules. Moderate coronary artery calcification. Fleischner guidelines were followed.
== END 2022-02-28 07:58 | disposition home or self-care (01) ==
LOC: HO.CT 07:57
PROVIDERS: Visit Provider Surgery
DX: C7A.8 Other malignant neuroendocrine tumors (principal)
CPT/HCPCS: 71250

== ENCOUNTER → 2022-03-21 11:01 | Outpatient (BNVA) | payer MEDICARE, SELFPAY | PROVIDERS: PCP Internal Medicine; Visit Provider Surgery | DX: C7A.8 Other malignant neuroendocrine tumors (principal); F17.200 Nicotine dependence, unspecified, uncomplicated | CPT/HCPCS: 99212 ==

== ENCOUNTER 2022-05-26 06:02 | Outpatient (REF) | payer MEDICARE, SELFPAY ==
[2022-05-26 11:27] LABS: Estimated Average Glucose 146 mg/dL; Hemoglobin A1c % 6.7 %
[2022-05-26 11:30] LABS: Alanine Aminotransferase 15 U/L (0-40); Albumin Level 4.1 g/dL (3.5-5.0); Alkaline Phosphatase 69 U/L (39-117); Anion Gap 14 (12-20); Aspartate Amino Transferase 14 U/L (5-37); Bilirubin Total 0.7 mg/dL (0.0-1.0); Blood Urea Nitrogen 30 mg/dL (9-16); Calcium 9.7 mg/dL (8.4-10.2); Carbon Dioxide 27 mmol/L (22-29); Chloride 102 mmol/L (96-108); Estimated Glomerular Filt Rate 41; Glucose Random 112 mg/dL (60-115); Potassium 4.1 mmol/L (3.3-5.1); Sodium 139 mmol/L (135-145); Total Protein 6.5 g/dL (6.5-8.0)
== END 2022-05-26 06:03 | disposition home or self-care (01) ==
LOC: HO.HMGCLDS 06:02
PROVIDERS: PCP Internal Medicine; Visit Provider Internal Medicine
DX: I12.9 Hypertensive chronic kidney disease with stage 1 through stage 4 chronic kidney disease, or unspecified chronic kidney disease (principal); E11.22 Type 2 diabetes mellitus with diabetic chronic kidney disease; N18.9 Chronic kidney disease, unspecified; N40.1 Benign prostatic hyperplasia with lower urinary tract symptoms; Z85.118 Personal history of other malignant neoplasm of bronchus and lung
CPT/HCPCS: 36415; 80053; 83036

== ENCOUNTER 2022-08-22 06:12 | Outpatient (REF) | payer MEDICARE, SELFPAY ==
[2022-08-22 12:26] LABS: Alanine Aminotransferase 9 U/L (0-40); Albumin Level 4.1 g/dL (3.5-5.0); Alkaline Phosphatase 76 U/L (39-117); Anion Gap 11 (12-20); Aspartate Amino Transferase 10 U/L (5-37); Bilirubin Total 0.6 mg/dL (0.0-1.0); Blood Urea Nitrogen 32 mg/dL (9-16); Calcium 9.2 mg/dL (8.4-10.2); Carbon Dioxide 29 mmol/L (22-29); Chloride 103 mmol/L (96-108); Estimated Glomerular Filt Rate 36; Glucose Random 114 mg/dL (60-115); Potassium 4.2 mmol/L (3.3-5.1); Sodium 139 mmol/L (135-145); Total Protein 6.4 g/dL (6.5-8.0)
[2022-08-22 12:28] LABS: Estimated Average Glucose 134 mg/dL; Hemoglobin A1c % 6.3 %
== END 2022-08-22 06:13 | disposition home or self-care (01) ==
LOC: HO.HMGCLDS 06:12
PROVIDERS: PCP Internal Medicine; Visit Provider Internal Medicine
DX: I12.9 Hypertensive chronic kidney disease with stage 1 through stage 4 chronic kidney disease, or unspecified chronic kidney disease (principal); E11.22 Type 2 diabetes mellitus with diabetic chronic kidney disease; N18.9 Chronic kidney disease, unspecified; H93.11 Tinnitus, right ear; N40.1 Benign prostatic hyperplasia with lower urinary tract symptoms
CPT/HCPCS: 36415; 80053; 83036

== ENCOUNTER 2022-09-04 08:30 | Outpatient (REF) | payer MEDICARE, SELFPAY ==
--- NOTE | ~2022-09-04 | US_ITS ---
EXAMINATION: US RETROPERITONEAL LIMITED (RENAL ONLY) CLINICAL INFORMATION: Renal cyst. COMPARISON: CT scan of the abdomen dated 09/04/2021, renal ultrasound dated 04/10/2021 TECHNIQUE: Multiple 2-D grayscale and color Doppler ultrasound images of the kidneys were obtained. FINDINGS: RIGHT KIDNEY: 10.3 x 5.4 x 6.9 cm (SAG x AP x TRV). An anechoic cyst in the lower pole measures 7.7 cm. An adjacent cyst versus thinly septated component measures up to 4.4 cm. A smaller adjacent cysts in the lower pole measure 2.1 cm and 2.4 cm. No hydronephrosis or nephrolithiasis. Color Doppler showed no abnormal vascular flow. LEFT KIDNEY: 10.1 x 4.7 x 4.9 cm (SAG x AP x TRV). A heterogeneous lesion with hyper anechoic and hypoechoic components measures approximately 3.2 x 2.8 x 2.0 cm. Small adjacent calcifications are noted. A small interpolar anechoic cyst measures 1.4 cm. An adjacent interpolar calculus measures 0.5 cm. No hydronephrosis. Color Doppler showed no abnormal vascular flow. US/US renal BI IMPRESSION: 1. Left renal cell lesion is nonspecific, but appears increase in size compared to the previous renal ultrasound. This was not as well-seen on the previous unenhanced CT scan. Further evaluation with contrast-enhanced abdominal MRI is recommended for additional characterization to rule out malignancy. 2. Renal cysts bilaterally, right greater than left, demonstrates benign features with similar appearance.
== END 2022-09-04 08:31 | disposition home or self-care (01) ==
LOC: HO.HMGCX 08:30
PROVIDERS: PCP Internal Medicine; Visit Provider Urology
DX: N28.1 Cyst of kidney, acquired (principal)
CPT/HCPCS: 76775

== ENCOUNTER → 2022-09-16 08:47 | Outpatient (BNVA) | payer MEDICARE, SELFPAY | PROVIDERS: PCP Internal Medicine; Visit Provider Urology | DX: N28.1 Cyst of kidney, acquired (principal); N40.0 Benign prostatic hyperplasia without lower urinary tract symptoms; N52.01 Erectile dysfunction due to arterial insufficiency | CPT/HCPCS: 51798; 99212 ==

== ENCOUNTER 2022-11-21 06:05 | Outpatient (REF) | payer MEDICARE, SELFPAY ==
[2022-11-21 11:12] LABS: MANUAL DIFF FLAG NO
[2022-11-21 11:35] LABS: Basophils Absolute Auto 0.1 X10*3/uL (0.0-0.2); Basophils Percent Auto 0.8 % (0-2); Eosinophils Absolute Auto 0.3 X10*3/uL (0.0-0.4); Eosinophils Percent Auto 3.1 % (0-4); Hematocrit 45.8 % (42.0-52.0); Hemoglobin 15.1 g/dl (14.0-18.0); Imm Gran Abs Auto 0.03 X10*3/uL (0.00-0.03); Imm Gran Pct Auto 0.3 % (0.0-0.4); Lymphocytes Percent Auto 21.7 % (20-40); Mean Corpuscular Hemoglobin 29.7 pg (27.0-33.0); Mean Platelet Volume 10.8 fL (9.4-12.4); Monocytes Absolute Auto 0.9 X10*3/uL (0.1-1.2); Monocytes Percent Auto 10.2 % (2-11); Neutrophils Absolute Auto 5.8 x10*3/uL (2.0-8.3); Neutrophils Percent Auto 63.9 % (45-73); Platelet Count 203 X10*3/uL (160-400); Red Blood Count 5.09 X10*6/uL (4.60-5.80); White Blood Count 9.1 X10*3/uL (4.8-10.8)
[2022-11-21 12:06] LABS: Alanine Aminotransferase 8 U/L (0-40); Albumin Level 4.2 g/dL (3.5-5.0); Alkaline Phosphatase 76 U/L (39-117); Anion Gap 12 (12-20); Aspartate Amino Transferase 12 U/L (5-37); Bilirubin Total 0.6 mg/dL (0.0-1.0); Blood Urea Nitrogen 24 mg/dL (9-16); Carbon Dioxide 28 mmol/L (22-29); Chloride 105 mmol/L (96-108); Cholesterol 132 mg/dL; Estimated Average Glucose 126 mg/dL; Estimated Glomerular Filt Rate 39; Glucose Random 117 mg/dL (60-115); HDL Cholesterol 35 mg/dL; LDL Cholesterol Calculated 62 mg/dl; Potassium 4.3 mmol/L (3.3-5.1); Sodium 141 mmol/L (135-145); Total Protein 7.1 g/dL (6.5-8.0); Triglycerides 177 mg/dL
[2022-11-21 12:07] LABS: Prostate Specific Antigen 0.34 ng/mL (<0.05-4.0)
[2022-11-21 12:17] LABS: Creatinine Urine 93.43 mg/dL; Microalbum/Creatinine Ratio Ur 34.2 ug/mg cr
[2022-11-24 13:48] LABS: Calcium (PTHI) 9.5 mg/dL (8.6-10.3); PTHI 36 pg/mL (16-77)
== END 2022-11-21 06:06 | disposition home or self-care (01) ==
LOC: HO.HMGCLDS 06:05
PROVIDERS: PCP Internal Medicine; Visit Provider Internal Medicine
DX: Z12.5 Encounter for screening for malignant neoplasm of prostate (principal); I12.9 Hypertensive chronic kidney disease with stage 1 through stage 4 chronic kidney disease, or unspecified chronic kidney disease; E11.22 Type 2 diabetes mellitus with diabetic chronic kidney disease; N18.9 Chronic kidney disease, unspecified; N40.1 Benign prostatic hyperplasia with lower urinary tract symptoms; Z72.0 Tobacco use
CPT/HCPCS: 36415; 80053; 80061; 82043; 83036; 83970; 84153; 85025

== ENCOUNTER 2023-02-19 06:07 | Outpatient (REF) | payer MEDICARE, SELFPAY ==
[2023-02-19 11:20] LABS: Estimated Average Glucose 134 mg/dL; Hemoglobin A1c % 6.3 % (<6.0)
[2023-02-19 11:39] LABS: Alanine Aminotransferase 10 U/L (0-40); Albumin Level 4.3 g/dL (3.5-5.0); Alkaline Phosphatase 71 U/L (39-117); Anion Gap 13 (12-20); Aspartate Amino Transferase 13 U/L (5-37); Bilirubin Total 0.5 mg/dL (0.0-1.0); Blood Urea Nitrogen 29 mg/dL (9-16); Calcium 9.8 mg/dL (8.4-10.2); Carbon Dioxide 30 mmol/L (22-29); Chloride 104 mmol/L (96-108); Estimated Glomerular Filt Rate 36; Glucose Random 114 mg/dL (60-115); Potassium 4.2 mmol/L (3.3-5.1); Sodium 143 mmol/L (135-145); Total Protein 7.4 g/dL (6.5-8.0)
== END 2023-02-19 06:08 | disposition home or self-care (01) ==
LOC: HO.HMGCLDS 06:07
PROVIDERS: PCP Internal Medicine; Visit Provider Internal Medicine
DX: I12.9 Hypertensive chronic kidney disease with stage 1 through stage 4 chronic kidney disease, or unspecified chronic kidney disease (principal); E11.22 Type 2 diabetes mellitus with diabetic chronic kidney disease; E78.00 Pure hypercholesterolemia, unspecified; N18.9 Chronic kidney disease, unspecified; Z72.0 Tobacco use
CPT/HCPCS: 36415; 80053; 83036

== ENCOUNTER 2023-03-18 07:58 | Outpatient (REF) | payer MEDICARE, SELFPAY ==
--- NOTE | ~2023-03-18 | MR_ITS ---
EXAMINATION: MR ABDOMEN WITHOUT AND WITH CONTRAST CLINICAL INFORMATION: Cyst of kidney. COMPARISON: Renal ultrasound 09/04/2022 CT abdomen 09/04/2021 TECHNIQUE: MRI of the abdomen before and after the IV administration of 7.5 mL of Gadavist was obtained using routine sequences. FINDINGS: LIVER AND BILIARY TREE: Loss of signal on opposed phase imaging compatible with hepatic steatosis. No suspicious liver lesion. No intra or extrahepatic biliary duct dilatation. GALLBLADDER: Unremarkable. PANCREAS: No ductal dilatation. SPLEEN: Not enlarged. ADRENAL GLANDS: No adrenal mass. KIDNEYS AND URETERS: The kidneys are symmetric in size. There is symmetric enhancement. There are several right renal cysts with the largest measuring 7.3 x 6.6 x 7.2 cm. No further imaging follow up is needed. Enhancing midpole left renal lesion measures 3.0 x 2.1 x 2.7 cm. No hydronephrosis. Nonspecific perinephric stranding. BOWEL: Questionable gastric wall thickening. LYMPH NODES: No bulky lymphadenopathy. VASCULAR: Normal caliber abdominal aorta. Atherosclerotic changes with possible penetrating ulcer in the infrarenal aorta. OSSEOUS STRUCTURES: Disc herniation at L4-L5. MR/MR kidney wo/w con IMPRESSION: Enhancing midpole left renal lesion measures 3.0 x 2.1 x 2.7 cm suspicious for renal neoplasm. Advise consultation with urology. Questionable gastric wall thickening. Consider correlation with direct visualization. Possible penetrating atherosclerotic ulcer of the infrarenal aorta. Hepatic steatosis.
[2023-03-18] MEDS: gadobutroL 7.5 ML VIAL IVPUSH (08:56)
== END 2023-03-18 07:59 | disposition home or self-care (01) ==
LOC: HO.MRI 07:58
PROVIDERS: PCP Internal Medicine; Visit Provider Urology
DX: N28.1 Cyst of kidney, acquired (principal)
CPT/HCPCS: 74181; A9585

== ENCOUNTER 2023-03-26 07:47 | Outpatient (REF) | payer MEDICARE, SELFPAY ==
[2023-03-26 12:24] LABS: Blood Urea Nitrogen 23 mg/dL (9-16); Estimated Glomerular Filt Rate 34
== END 2023-03-26 07:48 | disposition home or self-care (01) ==
LOC: HO.HMGCLDS 07:47
PROVIDERS: PCP Internal Medicine; Visit Provider Urology
DX: N28.1 Cyst of kidney, acquired (principal)
CPT/HCPCS: 36415; 82565; 84520

== ENCOUNTER 2023-03-27 11:31 | Outpatient (AMB) | payer MEDICARE, SELFPAY ==
--- NOTE | 2023-03-27 11:35 | MHC.OFFVIS ---
Intake Intake Visit Reasons: 6m/MRI(set) Intake Note: Patient is Present for Telephone Follow Up Urology Med: Finasteride, Tadalafil, Terazosin Antibiotic Allergy: Sulfa, Trimethoprim Blood Thinner: None Allergies Sulfa (Sulfonamide Antibiotics) Allergy (Severe, Verified 09/16/22 08:48) Fever sulfamethoxazole [From BACTRIM] Allergy (Intermediate, Verified 09/16/22 08:48) FEVER trimethoprim [From BACTRIM] Allergy (Intermediate, Verified 09/16/22 08:48) FEVER Medication List - Last Reconciled 03/27/23 by Julio Kiran MD famotidine 40 mg PO BEDTIME finasteride 5 mg PO DAILY gabapentin 0 mg PO lisinopril-hydrochlorothiazide 20-12.5 mg 1 tab PO DAILY lisinopril-hydrochlorothiazide 20-25 mg 1 tab PO DAILY omeprazole 20 mg PO DAILY pravastatin 40 mg PO DAILY pravastatin 80 mg PO DAILY prednisone 60 mg (3 x 20 mg) PO DAILY 5 days sitagliptin phosphate (Januvia) 50 mg PO DAILY tadalafil 20 mg PO ONCE PRN 30 days terazosin 10 mg PO BEDTIME 90 days HPI HPI Comments History of Present Illness Details Arnoldo is a pleasant male. He is a patient of Dr. Franks. He seen for the following urologic conditions - weak urinary stream - BPH - renal cyst - erectile dysfunction Telemedicine Evaluation 15 min Consultation Somo Christoph Video attempted MRI confirms left peripheral renal mass Discussed biopsy versus cryotherapy Based on consideration of imaging would recommend going straight to cryotherapy with biopsy at the time 03/28 MRI - Enhancing midpole left renal lesion measures 3.0 x 2.1 x 2.7 cm suspicious for renal neoplasm Lower urinary tract symptoms Longstanding Weakness of stream Current therapy terazosin Prior therapy tamsulosin PSA 08/25 0,72 Renal cyst Renal cyst found on ultrasound Bilateral up to 7 cm in size Imaging - 09/25 9 cm right complex cyst with small hemorrhagic cyst - 08/26 renal ultrasound bilateral cysts with question complex cyst left side [facility] Medical History Anxiety BPH (benign prostatic hyperplasia) CKD (chronic kidney disease) Diverticulosis Emphysema lung GERD (gastroesophageal reflux disease) Hyperlipidemia Hypertension IFG (impaired fasting glucose) Large cell neuroendocrine carcinoma (~2017) Lumbar radiculopathy AUBRIE (obstructive sleep apnea) Personal history of nicotine dependence Tubular adenoma of colon (~2012) Surgical History History of colonoscopy History of lobectomy of lung (~2017) Social History Patient Tobacco Use Status: Current everyday Tobacco user Cigarettes Per Day: 10 Review of Systems Const All systems reviewed & are unremarkable except as noted in HPI and below Reports no additional complaints Resp Reports no additional complaints GI Reports no additional complaints Reports as per HPI Musc Reports no additional complaints Physical Exam Telemedicine evaluation Appropriate responses Regular breathing rate and rhythm HEENT Head: Yes normal to inspection Ears: hearing grossly normal bilaterally Eyes General: appearance normal, both eyes and all related structures Neck Neck: Yes normal visual inspection Chest Chest palpation & inspection: normal inspection of the chest Resp Effort & Inspection: normal respiratory effort and able to speak in complete sentences Assessment & Plan Assessment & Plan (1) Left renal mass: Code(s): N28.89 - Other specified disorders of kidney and ureter Plan Risks, benefits and alternatives to therapy were discussed. These include but are not limited to infection, bleeding, damage to local organs and tissues, need for further interventions. Anesthetic risks regarding cardiac arrhythmia, blood clots, and potential mortality were discussed. The patient understands the typical recovery time and the outpatient nature of the procedure. After consideration of these risks the patient gives full informed consent and they wish to move ahead with the procedure. Left renal cryotherapy Patient Instructions: Imaging studies, laboratory and physical exam results were discussed and reviewed in detail. No major barriers to patient understanding were identified. An opportunity to ask questions regarding the treatment plan was provided. All questions were answered. The patient expressed understanding and agreement with the above treatment plan. The patient is aware they should contact our office by phone for worsening of their current condition or the appearance of new urologic symptoms. Compliance is encouraged with any medications and followup testing that is ordered. It is a privilege to participate in the urologic care of your patient. If you have any questions or concerns regarding treatment for the above conditions, or other urologic issues, please do not hesitate to contact me. The office telephone contact is [phone]. This note is constructed using voice recognition software. While every effort has been made to ensure accuracy controls design engineer errors may have been included. Yours sincerely, Dr Julio Kiran MD, [facility] - Urology Providers of Expert, Compassionate Care for the Genitourinary System Telehealth Telehealth Location of provider rendering services: practice address Location of patient: address on file Patient Identification confirmed using: Name, : Yes Telehealth method: voice only Patient verbally consented to treatment: Yes Patient verbally consented to billing insurance company: Yes Patient informed of any privacy concerns related to visit: Yes Coding Level of Care Code Tele Est Pt Level 4 (54499) Diagnoses Left renal mass N28.89
== END 2023-03-27 12:13 | disposition home or self-care (01) ==
LOC: HO.HUSH 11:31
PROVIDERS: PCP Internal Medicine; Visit Provider Urology
DX: N28.89 Other specified disorders of kidney and ureter (principal)
CPT/HCPCS: 99442

== ENCOUNTER → 2023-03-27 11:31 | Outpatient (BNVA) | payer MEDICARE, SELFPAY | PROVIDERS: PCP Internal Medicine; Visit Provider Urology ==

== ENCOUNTER → 2023-05-11 11:38 | Day surgery (SDC) | payer MEDICARE, SELFPAY ==
--- NOTE | 2023-04-29 10:28 | HO.ANESPROP2 ---
HPI - Anesthesia Eval Consult details Narrative: 72yo M for Left Kidney Cryo-Ablation s/p ANDREIA-ectomy 2017 [facility] Active Problems Active Problems: All Active Problems (Updated 04/09/23 @ 16:09 by Julio Kiran MD) Left renal mass (Acute) Erectile dysfunction due to arterial insufficiency (Acute) Nicotine dependence (Acute) Complex renal cyst (Acute) Weak urinary stream (Acute) BPH (benign prostatic hyperplasia) (Acute) Large cell neuroendocrine carcinoma (Acute ~2018) Past Medical History Medical History Anxiety BPH (benign prostatic hyperplasia) CKD (chronic kidney disease) Diverticulosis Emphysema lung GERD (gastroesophageal reflux disease) Hyperlipidemia Hypertension IFG (impaired fasting glucose) Large cell neuroendocrine carcinoma (~2017) Lumbar radiculopathy AUBRIE (obstructive sleep apnea) Personal history of nicotine dependence Tubular adenoma of colon (~2012) Surgical History Surgical History History of colonoscopy History of lobectomy of lung (~2017) Social History Social History Patient Tobacco Use Status: Current everyday Tobacco user Cigarettes Per Day: 10 Meds Allergies Allergy/AdvReac Type Severity Reaction Status Date / Time Sulfa (Sulfonamide Allergy Severe Fever Verified 09/16/22 08:48 Antibiotics) sulfamethoxazole Allergy Intermediate FEVER Verified 09/16/22 08:48 [From BACTRIM] trimethoprim [From BACTRIM] Allergy Intermediate FEVER Verified 09/16/22 08:48 Home Medications Medication Instructions Recorded Confirmed Last Taken Type lisinopril 20 1 tab PO DAILY 03/16/20 03/27/23 Unknown History mg-hydrochlorothiazide 12.5 mg tablet omeprazole 20 mg capsule,delayed 20 mg PO DAILY 03/16/20 03/27/23 Unknown History release pravastatin 40 mg tablet 40 mg PO DAILY 03/16/20 03/27/23 Unknown History famotidine 40 mg tablet 40 mg PO BEDTIME 09/13/21 03/27/23 Unknown History finasteride 5 mg tablet 5 mg PO DAILY 09/13/21 03/27/23 Unknown History gabapentin 300 mg capsule 0 mg PO 09/13/21 03/27/23 Unknown History lisinopril 20 1 tab PO DAILY 09/13/21 03/27/23 Unknown History mg-hydrochlorothiazide 25 mg tablet pravastatin 80 mg tablet 80 mg PO DAILY 09/13/21 03/27/23 Unknown History sitagliptin phosphate 50 mg tablet 50 mg PO DAILY 09/16/22 03/27/23 Unknown History () Exam Pertinent Lab Results Pertinent Lab Results: Laboratory Tests 11/21/22 02/19/23 02/19/23 06:15 06:16 06:16 WBC 9.1 Hgb 15.1 Hct 45.8 Plt Count 203 Sodium 143 Potassium 4.2 Chloride 104 Carbon Dioxide 30 H BUN Creatinine 03/26/23 08:02 WBC Hgb Hct Plt Count Sodium Potassium Chloride Carbon Dioxide BUN 23 H Creatinine 1.96 H Assessment and Plan Assessment Anesthesia Assessment: Chart Reviewed
[2023-05-11 12:36] LABS: Hematocrit 45.6 % (42.0-52.0); Mean Corpuscular HGB Conc 32.9 g/dl (31.0-36.0); Mean Corpuscular Hemoglobin 29.4 pg (27.0-33.0); Mean Corpuscular Volume 89.4 fL (80.0-98.0); Mean Platelet Volume 9.7 fL (9.4-12.4); Platelet Count 180 X10*3/uL (160-400); Red Cell Distribution Width 14.1 % (11.0-16.0)
[2023-05-11 12:42] LABS: INTERNATIONAL NORM RATIO 0.9 (0.9-1.1); Prothrombin Time 11.3 SEC (11.1-13.3)
[2023-05-11 12:44] LABS: Partial Thromboplastin Time 40.6 SEC (26.0-36.8)
[2023-05-11 12:52] LABS: Anion Gap 13 (12-20); Blood Urea Nitrogen 29 mg/dL (9-16); Calcium 9.8 mg/dL (8.4-10.2); Carbon Dioxide 29 mmol/L (22-29); Chloride 105 mmol/L (96-108); Estimated Glomerular Filt Rate 32; Glucose Fasting 111 mg/dL (60-99); Potassium 4.7 mmol/L (3.3-5.1); Sodium 142 mmol/L (135-145)
== END ==
PROVIDERS: Nurse Practitioner; PCP Internal Medicine; Visit Provider Radiology Vascular & Interventional Radiology
DX: N28.89 Other specified disorders of kidney and ureter (principal); Z53.8 Procedure and treatment not carried out for other reasons; Z79.84 Long term (current) use of oral hypoglycemic drugs; Z79.899 Other long term (current) drug therapy
CPT/HCPCS: 36415; 80048; 85027; 85610; 85730

== ENCOUNTER 2023-06-02 06:04 | Outpatient (REF) | payer MEDICARE, SELFPAY ==
[2023-06-02 11:27] LABS: Alanine Aminotransferase 9 U/L (0-40); Albumin Level 4.2 g/dL (3.5-5.0); Alkaline Phosphatase 78 U/L (39-117); Anion Gap 12 (12-20); Aspartate Amino Transferase 12 U/L (5-37); Bilirubin Total 0.5 mg/dL (0.0-1.0); Blood Urea Nitrogen 33 mg/dL (9-16); Calcium 9.5 mg/dL (8.4-10.2); Carbon Dioxide 26 mmol/L (22-29); Chloride 106 mmol/L (96-108); Estimated Glomerular Filt Rate 36; Glucose Random 115 mg/dL (60-115); Potassium 4.1 mmol/L (3.3-5.1); Sodium 140 mmol/L (135-145); Total Protein 7.1 g/dL (6.5-8.0)
[2023-06-02 16:32] LABS: Estimated Average Glucose 134 mg/dL; Hemoglobin A1c % 6.3 % (<6.0)
== END 2023-06-02 06:05 | disposition home or self-care (01) ==
LOC: HO.HMGCLDS 06:04
PROVIDERS: PCP Internal Medicine; Visit Provider Internal Medicine
DX: E11.9 Type 2 diabetes mellitus without complications (principal); N28.89 Other specified disorders of kidney and ureter; R05.3 Chronic cough; Z72.0 Tobacco use
CPT/HCPCS: 36415; 80053; 83036

== ENCOUNTER 2023-06-09 11:32 | Day surgery (SDC) | payer MEDICARE, OTHER, SELFPAY ==
--- NOTE | 2023-06-08 08:20 | HO.ANESPROP2 ---
Documented by User: Kelly Galan NP 06/08/23 10:21 HPI - Anesthesia Eval Consult details Narrative: 72yo M for Kidney Cryo-Ablation s/p Divinci right upper lobectomy and mediastinal lymphadenectomy ~ 2018 Smoker Anesthesia Pre-Procedure Meds Is the patient on any of the following meds?: Any other SGL-1 drugs or drugs that delay gastric emptying (Januvia - last dose 06/06/23) PMFSH Active Problems Active Problems: All Active Problems (Updated 04/09/23 @ 16:09 by Julio Kiran MD) Left renal mass (Acute) Erectile dysfunction due to arterial insufficiency (Acute) Nicotine dependence (Acute) Complex renal cyst (Acute) Weak urinary stream (Acute) BPH (benign prostatic hyperplasia) (Acute) Large cell neuroendocrine carcinoma (Acute ~2018) Past Medical History Medical History Tubular adenoma of colon (~2012) Personal history of nicotine dependence Diverticulosis Large cell neuroendocrine carcinoma (~2017) Lumbar radiculopathy BPH (benign prostatic hyperplasia) GERD (gastroesophageal reflux disease) Anxiety AUBRIE (obstructive sleep apnea) IFG (impaired fasting glucose) Hyperlipidemia Hypertension CKD (chronic kidney disease) Emphysema lung Surgical History Surgical History History of colonoscopy History of lobectomy of lung (~2017) Social History Social History Patient Tobacco Use Status: Current everyday Tobacco user Tobacco use type: Cigarette Cigarettes Per Day: 10 Years Smoked: 65 Smoked in Last 30 Days: Yes Use of substances other than those prescribed or required for medical reasons: No Are you DNR?: No Advance Directives: No Advance Directives Information Provided: Yes Meds Allergies Allergy/AdvReac Type Severity Reaction Status Date / Time Sulfa (Sulfonamide Allergy Severe Fever Verified 06/09/23 12:02 Antibiotics) sulfamethoxazole Allergy Intermediate FEVER Verified 06/09/23 12:02 [From BACTRIM] trimethoprim [From BACTRIM] Allergy Intermediate FEVER Verified 06/09/23 12:02 Home Medications Medication Instructions Recorded Confirmed Last Taken Type omeprazole 20 mg capsule,delayed 20 mg PO DAILY 03/16/20 06/09/23 Unknown History release famotidine 40 mg tablet 40 mg PO BEDTIME 09/13/21 06/09/23 06/09/23 History finasteride 5 mg tablet 5 mg PO DAILY 09/13/21 06/09/23 06/09/23 History lisinopril 20 1 tab PO DAILY 09/13/21 06/09/23 06/09/23 History mg-hydrochlorothiazide 25 mg tablet pravastatin 80 mg tablet 80 mg PO DAILY 09/13/21 06/09/23 06/09/23 History sitagliptin phosphate 50 mg tablet 50 mg PO DAILY 09/16/22 06/09/23 06/05/23 History (Januvia) Exam Pertinent Lab Results Pertinent Lab Results: Laboratory Tests 05/11/23 06/02/23 12:29 06:09 WBC 11.0 H Hgb 15.0 Hct 45.6 Plt Count 180 Sodium 140 Potassium 4.1 Chloride 106 Carbon Dioxide 26 BUN 33 H Creatinine 1.86 H Assessment and Plan Assessment Anesthesia Assessment: Chart Reviewed Documented by User: Juan Osullivan MD 06/09/23 13:15 HPI - Anesthesia Eval Anesthesia Pre-Procedure Meds If Yes to any meds - educate patient: Pt education - increased risk of aspiration and Pt education - possibility of cancelled proc at provider's discretion PMFSH Past Medical History Medical History Tubular adenoma of colon (~2012) Personal history of nicotine dependence Diverticulosis Large cell neuroendocrine carcinoma (~2017) Lumbar radiculopathy BPH (benign prostatic hyperplasia) GERD (gastroesophageal reflux disease) Anxiety AUBRIE (obstructive sleep apnea) IFG (impaired fasting glucose) Hyperlipidemia Hypertension CKD (chronic kidney disease) Emphysema lung Family History Family history of problems with anesthesia: No Surgical History Surgical History History of colonoscopy History of lobectomy of lung (~2017) History of Problems with Anesthesia: No Social History Social History Patient Tobacco Use Status: Current everyday Tobacco user Tobacco use type: Cigarette Cigarettes Per Day: 10 Years Smoked: 65 Smoked in Last 30 Days: Yes Use of substances other than those prescribed or required for medical reasons: No Are you DNR?: No Advance Directives: No Advance Directives Information Provided: Yes Meds Allergies Allergy/AdvReac Type Severity Reaction Status Date / Time Sulfa (Sulfonamide Allergy Severe Fever Verified 06/09/23 12:02 Antibiotics) sulfamethoxazole Allergy Intermediate FEVER Verified 06/09/23 12:02 [From BACTRIM] trimethoprim [From BACTRIM] Allergy Intermediate FEVER Verified 06/09/23 12:02 Home Medications Medication Instructions Recorded Confirmed Last Taken Type omeprazole 20 mg capsule,delayed 20 mg PO DAILY 03/16/20 06/09/23 Unknown History release famotidine 40 mg tablet 40 mg PO BEDTIME 09/13/21 06/09/23 06/09/23 History finasteride 5 mg tablet 5 mg PO DAILY 09/13/21 06/09/23 06/09/23 History lisinopril 20 1 tab PO DAILY 09/13/21 06/09/23 06/09/23 History mg-hydrochlorothiazide 25 mg tablet pravastatin 80 mg tablet 80 mg PO DAILY 09/13/21 06/09/23 06/09/23 History sitagliptin phosphate 50 mg tablet 50 mg PO DAILY 09/16/22 06/09/23 06/05/23 History ([place]) Exam Airway Mallampati Class: II TM Dist: >3cm Neck ROM: Full Loose/Missing/Broken Teeth: Yes Heart: [id number] Lungs: b/s bilaterally Assessment and Plan Assessment Anesthesia Assessment: Anesthesia Plan Discussed Final Anesthetic Review Family History of Problems with Anesthesia: No History of Problems with Anesthesia: No NPO: Yes ASA Class: III Final Preanesthetic Review: No Changes in Pt Med Stat, Meds/Allgs Chart Reviewed, Consent Obtained/Reviewed and Anes Risks/Benef Reviewed Patient Risk: Intermediate Procedure Risk: Intermediate Assessment/Block/Sedation in SS: Assess/Block/Sedation-SS Anesthetic Plan Anesthetic Plan: GA Disposition: Standard PACU
[2023-06-09] VITALS (14 sets, daily range): BP systolic 121–148; BP diastolic 42–64; PULSE 70–79; RESP 16; TEMP 36.1–36.6; O2SAT 92–97; BMI 24.9
--- NOTE | ~2023-06-09 | CT_ITS ---
Cryoablation of the left renal mass INDICATIONS: 2.1 x 2.7 x 3.1 cm mass involving the lateral aspect of the left kidney After informed written consent was obtained an official timeout was performed immediately prior to the procedure. Anesthesia: General PROCEDURE: With the patient in a supine position rolled onto his right side slightly. The skin was prepped and draped in the usual fashion in the left posterior lateral aspect of the mid to upper abdomen. Initially under CT guidance a 20-gauge Specleno core biopsy needle was placed. 2 core biopsy specimens were obtained. A 14-gauge cryoablation probe was then placed in the inferior to midportion of the mass along the lateral aspect of the left kidney. A second 17-gauge probe was then placed slightly more cephalad. Cryoablation was then performed for initially a a treatment time of 10 minutes with a thaw time of 8 minutes. Repeat freezing for 10 minutes was then performed. Several scans during the course of the cryoablation demonstrates an excellent treatment zone. The probes were removed and hemostasis obtained. CT/CT guided ablation renal IMPRESSION: CT-guided biopsy followed by cryoablation of the mass in the lateral aspect of the left kidney
[2023-06-09 12:03] LABS: Glucose, Whole Blood 128 mg/dL (60-115)
[2023-06-09] MEDS: Lactated Ringers 1,000 ML 100 ML IVCONT (12:14)
[2023-06-09] MEDS: Albuterol Sulfate (0.083%) 2.5 MG/3 ML VIAL.NEB INHALE (12:22)
[2023-06-09] MEDS: fentaNYL citrate/PF 100 MCG/2 ML VIAL 50 MCG IVPUSH ×2 (15:37→15:55)
== END 2023-06-09 16:52 | disposition home or self-care (01) ==
PROVIDERS: PCP Internal Medicine; Visit Provider Radiology Vascular & Interventional Radiology
DX: C64.2 Malignant neoplasm of left kidney, except renal pelvis (principal); N40.1 Benign prostatic hyperplasia with lower urinary tract symptoms; R39.12 Poor urinary stream; I12.9 Hypertensive chronic kidney disease with stage 1 through stage 4 chronic kidney disease, or unspecified chronic kidney disease; N18.9 Chronic kidney disease, unspecified; Z85.89 Personal history of malignant neoplasm of other organs and systems; Z90.2 Acquired absence of lung [part of]; F17.210 Nicotine dependence, cigarettes, uncomplicated; R73.01 Impaired fasting glucose; Z79.899 Other long term (current) drug therapy; Z88.2 Allergy status to sulfonamides
CPT/HCPCS: 50593; 77013; 82947; 86850; 86900; 86901; 88305; 94640; C2618; J0131; J1100; J2250; J2405; J2704; J3010

== ENCOUNTER → 2023-06-09 13:01 | Outpatient (BNV) | payer MEDICARE, SELFPAY | PROVIDERS: PCP Internal Medicine; Visit Provider Radiology Vascular & Interventional Radiology | DX: C64.2 Malignant neoplasm of left kidney, except renal pelvis (principal) | CPT/HCPCS: 50593; 77013 ==

== ENCOUNTER 2023-07-08 10:30 | Outpatient (AMB) | payer MEDICARE, MEDICAID, SELFPAY ==
--- NOTE | 2023-07-08 10:47 | A.OFFVIS_ITS ---
Intake Intake Visit Reasons: Renal Cryo follow up(Confirmed) Intake Note: Patient presents today for a follow up on: Renal Cryo Meds- Finasteride, Terazosin Allergies to Antibiotic- No Known Allergies Blood Thinner- None Post Void Residual: 37ml Patient Symptoms: Patient stated he is not taking the Tadalafil. 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: No Accompanied by: Self / Same As Patient Allergies Sulfa (Sulfonamide Antibiotics) Allergy (Severe, Verified 07/08/23 10:56) Fever sulfamethoxazole [From BACTRIM] Allergy (Intermediate, Verified 07/08/23 10:56) FEVER trimethoprim [From BACTRIM] Allergy (Intermediate, Verified 07/08/23 10:56) FEVER Medication List - Last Reconciled 07/08/23 by Julio Kiran MD famotidine 40 mg PO BEDTIME finasteride 5 mg PO DAILY lisinopril-hydrochlorothiazide 20-25 mg 1 tab PO DAILY omeprazole 20 mg PO DAILY pravastatin 80 mg PO DAILY sitagliptin phosphate (Januvia) 50 mg PO DAILY tadalafil 20 mg PO ONCE PRN 30 days terazosin 10 mg PO BEDTIME 90 days HPI HPI Comments History of Present Illness Details Arnoldo is a pleasant male. He is a patient of Dr. Franks. He seen for the following urologic conditions - weak urinary stream - BPH - renal cancer - erectile dysfunction Follow-up from renal cryoablation Confirmed biopsy [place] grade 1 Recommend follow-up imaging in [address] scan chest for prior lung cancer Lower urinary tract symptoms Longstanding Weakness of stream Current therapy terazosin Prior therapy tamsulosin PSA 08/25 0,72 Renal cancer - Bernardo grade 1 pT1 - cryoablation 06/27 - low risk Renal cyst found on ultrasound Bilateral up to 7 cm in size Imaging - 09/25 9 cm right complex cyst with smal l hemorrhagic cyst - 08/26 renal ultrasound bilateral cysts with question complex cyst left side - 03/28 MRI - Enhancing midpole left porter al lesion measures 3.0 x 2.1 x 2.7 cm suspicious for renal neoplasm Surveillance follow-up 6 months for 1st follow-up, subsequent yearly with lab evaluation for 5 years and every 2 years out to 10 years [facility] Medical History (Updated 07/08/23 @ 11:10 by Julio Kiran MD) Left renal mass Complex renal cyst Tubular adenoma of colon (~2012) Personal history of nicotine dependence Diverticulosis Large cell neuroendocrine carcinoma (~2018) Lumbar radiculopathy BPH (benign prostatic hyperplasia) GERD (gastroesophageal reflux disease) Anxiety AUBRIE (obstructive sleep apnea) IFG (impaired fasting glucose) Hyperlipidemia Hypertension CKD (chronic kidney disease) Emphysema lung Surgical History History of colonoscopy History of lobectomy of lung (~2017) Social History Patient Tobacco Use Status: Current everyday Tobacco user Tobacco use type: Cigarette Cigarettes Per Day: 10 Years Smoked: 65 Review of Systems Const Denies chills and Denies fever(s) Card Reports no additional complaints and Denies syncope Resp Denies cough GI Denies abdominal pain and Denies heartburn Reports as per HPI and Denies change in libido Neuro Denies syncope Psych Denies change in libido Endo Denies change in libido Physical Exam Const General: cooperative, healthy appearing, comfortable and no acute distress Orientation/consciousness: patient oriented x3 HEENT Face and sinus: Yes normal facial exam Mouth: moist mucous membranes Neck Neck: Yes normal visual inspection, Yes full ROM and Yes trachea midline Chest Chest palpation & inspection: normal inspection of the chest Resp Effort & Inspection: normal respiratory effort, able to speak in complete sentences and no respiratory distress GI Inspection: Yes normal to inspection Back/Spine/Pelvis Cervical Spine: normal cervical lordosis Thoracic/Lumbar Spine: thoracic and lumbar spine normal to inspection Skin General skin exam: no rashes or lesions noted Neuro General: patient oriented x3, gait normal, tone normal and moves all extremities Extrem General: Yes normal to inspection and Yes capillary refill normal Office Procedures Post Void Residual Post Residual Void Post Void Residual (PVR): 37 [id number] Void Residual by ultrasound Assessment & Plan Assessment & Plan (1) Renal cancer: Comment: Left cryoablation 06/27 [place] 1 Code(s): C64.9 - Malignant neoplasm of unspecified kidney, except renal pelvis Plan Surveillance imaging protocol Orders: Orders Creatinine 6 Months C64.9 - Malignant neoplasm of unspecified kidney, except renal pelvis Blood Urea Nitrogen 6 Months C64.9 - Malignant neoplasm of unspecified kidney, except renal pelvis AMB Post Void Residual by ultrasound Today R33.9 - Retention of urine, unspecified MR kidney wo/w con 6 Months C64.9 - Malignant neoplasm of unspecified kidney, except renal pelvis Patient Instructions: Imaging studies, laboratory and physical exam results were discussed and reviewed in detail. No major barriers to patient understanding were identified. An opportunity to ask questions regarding the treatment plan was provided. All questions were answered. The patient expressed understanding and agreement with the above treatment plan. The patient is aware they should contact our office by phone for worsening of their current condition or the appearance of new urologic symptoms. Compliance is encouraged with any medications and followup testing that is ordered. It is a privilege to participate in the urologic care of your patient. If you have any questions or concerns regarding treatment for the above conditions, or other urologic issues, please do not hesitate to contact me. The office telephone contact is [phone]. This note is constructed using voice recognition software. While every effort has been made to ensure accuracy waste water operator errors may have been included. Yours sincerely, Dr Julio Kiran MD, [facility] - Urology Providers of Expert, Compassionate Care for the Genitourinary System Coding Level of Care Code Est Pt Level 4 (53606) Diagnoses Renal cancer C64.9 CPT Codes Post Residual Void - PVR CPT Code: 60400-Uvee Void Residual by ultrasound ([id number])
== END 2023-07-08 11:11 | disposition home or self-care (01) ==
PROVIDERS: PCP Internal Medicine; Visit Provider Urology
DX: C64.9 Malignant neoplasm of unspecified kidney, except renal pelvis (principal)
CPT/HCPCS: 99214

== ENCOUNTER → 2023-07-08 10:30 | Outpatient (BNVA) | payer MEDICARE, SELFPAY | PROVIDERS: PCP Internal Medicine; Visit Provider Urology | DX: R39.12 Poor urinary stream (principal); C64.9 Malignant neoplasm of unspecified kidney, except renal pelvis; R33.9 Retention of urine, unspecified | CPT/HCPCS: 51798; 99212 ==

== ENCOUNTER 2023-08-31 08:41 | Emergency (ER) | payer MEDICARE, OTHER, SELFPAY ==
--- NOTE | ~2023-08-31 | XR_ITS ---
EXAMINATION: XR LUMBAR SPINE CLINICAL INFORMATION: Low back pain COMPARISON: None TECHNIQUE: Frontal lateral and coned-down L5-S1 frontal lateral, total of 3 views FINDINGS: Five [id number] lumbar vertebrae were identified maintaining normal height and alignments. Narrowing of intervertebral disc spaces suggest underlying degenerative disc disease. There is heavy aortic vascular calcifications. Paravertebral soft tissues are unremarkable. There are radiolucencies, most likely superimposed bowel gas.. No radiographic evidence of osteolytic or osteoblastic lesions. XR/XR lumbar spine 2-3V IMPRESSION: Narrowing of intervertebral disc spaces suggest underlying degenerative disc disease.. No fracture. Heavy aortic vascular calcifications.
[2023-08-31 08:44] VITALS: BP 153/68; PULSE 77; RESP 18; TEMP 36.4; O2SAT 95; BMI 25.1
--- NOTE | 2023-08-31 09:22 | ED.BACK ---
HPI - Back Pain/Injury General Chief Complaint: Back Pain/Injury Stated Complaint: Back pain Time Seen by Provider: 08/31/23 09:05 Source: patient, family, RN notes reviewed and old records reviewed Mode of arrival: ambulatory History of Present Illness ED Provider: Temitope Ng PA-C HPI Narrative: 73-year-old male with a past medical history of AUBRIE, CKD, HTN, HLD, emphysema, GERD, presenting to the ED complaining of acute on chronic right-sided low back pain x weeks worsening over the past few days. Patient admits to obtaining cortisone injections 2 weeks ago without relief. Also been taking Tylenol and baclofen without relief. Denies numbness, tingling, weakness, incontinence/retention, abdominal pain, nausea/vomiting, fever. reports right flank swelling. Denies injury/trauma /fall Related Data Home Medications ?Medication ?Instructions ?Recorded ?Confirmed omeprazole 20 mg capsule,delayed 20 mg PO DAILY 03/16/20 07/08/23 release famotidine 40 mg tablet 40 mg PO BEDTIME 09/13/21 07/08/23 finasteride 5 mg tablet 5 mg PO DAILY 09/13/21 07/08/23 lisinopril 20 1 tab PO DAILY 09/13/21 07/08/23 mg-hydrochlorothiazide 25 mg tablet pravastatin 80 mg tablet 80 mg PO DAILY 09/13/21 07/08/23 sitagliptin phosphate 50 mg tablet 50 mg PO DAILY 09/16/22 07/08/23 (Januvia) Previous Rx's ?Medication ?Instructions ?Recorded tadalafil 20 mg tablet 20 mg PO ONCE PRN sexual activity 09/16/22 30 days #30 tabs terazosin 10 mg capsule 10 mg PO BEDTIME 90 days #90 caps 09/16/22 cyclobenzaprine 5 mg tablet 5 mg PO Q8H PRN pain (scale score 08/31/23 7-10) 5 days #14 tabs lidocaine 5 % topical patch 1 patch topical DAILY PRN pain #30 08/31/23 (Lidoderm) ea oxycodone 5 mg capsule 5 mg PO Q8H PRN pain, severe 3 08/31/23 days #9 caps Allergies Allergy/AdvReac Type Severity Reaction Status Date / Time Sulfa (Sulfonamide Allergy Severe Fever Verified 08/31/23 08:46 Antibiotics) sulfamethoxazole Allergy Intermediate FEVER Verified 08/31/23 08:46 [From BACTRIM] trimethoprim [From BACTRIM] Allergy Intermediate FEVER Verified 08/31/23 08:46 Review of Systems Review of Systems: Constitutional: No Fever, No Chills ENT/Mouth: No Ear Pain, No Nasal Congestion,, No sore throat, No Rhinorrhea, No Swallowing Difficulty Cardiovascular: No Chest Pain, No SOB Respiratory: No Cough, No Sputum Gastrointestinal: No Nausea, No Vomiting, No Abdominal pain Genitourinary: No Dysuria, No Urinary Frequency, No Hematuria, No Urinary Incontinence/retention, No Urgency, + Flank Pain Musculoskeletal: + joint pain, No Myalgias, No Joint Swelling Skin: No Skin Lesions, No rash Neuro: No Weakness, No Numbness, No Paresthesias Yes all other systems are reviewed and are negative Constitutional: Constitutional: Reports as per HPI Neurologic: Denies Sensory deficit (Neuro) [facility], [facility] Past Medical History Attestation statement: The following information was validated with the patient. Source: old records reviewed Medical History Left renal mass Complex renal cyst Tubular adenoma of colon (~2012) Personal history of nicotine dependence Diverticulosis Large cell neuroendocrine carcinoma (~2017) Lumbar radiculopathy BPH (benign prostatic hyperplasia) GERD (gastroesophageal reflux disease) Anxiety AUBRIE (obstructive sleep apnea) IFG (impaired fasting glucose) Hyperlipidemia Hypertension CKD (chronic kidney disease) Emphysema lung Surgical History History of colonoscopy History of lobectomy of lung (~2017) Social History Social History Patient Tobacco Use Status: Current everyday Tobacco user Tobacco use type: Cigarette Cigarettes Per Day: 10 Years Smoked: 65 Advance Directives: No Advance Directives Information Provided: Yes Physical Exam Vital Signs: Vital Signs: Last Vital Signs Temp 98.1 F 08/31/23 11:39 Pulse 64 08/31/23 11:39 Resp 18 08/31/23 11:39 BP 130/61 08/31/23 11:39 Pulse Ox 95 08/31/23 11:39 O2 Del Method Room Air 08/31/23 11:39 BMI result Body Mass Index 25.1 Const: General: cooperative, healthy appearing and no acute distress Orientation/consciousness: patient oriented x3 Limitations: no limitations HEENT: Head: Yes normal to inspection and Yes atraumatic Ears: hearing grossly normal bilaterally General nose exam: Normal external nose present Face and sinus: Yes normal facial exam Eyes: General: appearance normal, both eyes and all related structures EOM: EOMs intact bilaterally Neck: Neck: Yes normal visual inspection and Yes no meningeal signs Resp: Effort & Inspection: normal respiratory effort and no respiratory distress Cardio: Rate: regular rate GI: Inspection: Yes normal to inspection Palpation (GI): Soft to palpation, nontender, no guarding and not rigid : General: Yes no CVA tenderness Back/Spine/Pelvis: Other: No midline cervical/thoracic/lumbar spinous tenderness/step-off or deformity. No appreciable swelling/erythema or rash. Right lumbar paraspinal reproducible tenderness Back: no CVA tenderness Skin: Rashes: no rashes Wounds: no wounds Neuro: Other: Strength intact throughout. No saddle anesthesia. Sensation intact to light touch. Neurovascular intact distally General: patient oriented x3, gait normal, tone normal, moves all extremities and no meningeal signs Cranial nerves: Yes CN's II-XII intact bilaterally Gait exam (Neuro): Normal gait present Motor exam (neuro): 5/5 motor strength present throughout Sensory Exam: No Sensory deficit (Neuro) Extrem: General: Yes normal to inspection Course Course Course Narrative: 1030--labs at patient's baseline. UA unremarkable XR lumbar spine 2-3V IMPRESSION: Narrowing of intervertebral disc spaces suggest underlying degenerative disc disease.. No fracture. Heavy aortic vascular calcifications. 1107--on re-evaluation patient reports symptomatic improvement after p.o. oxycodone. Is ambulating with steady gait. at bedside. Results discussed with patient including worrisome signs and symptoms and strict return precautions, and when to return to the emergency department. They verbalized understanding and feel safe for discharge at this time. Medications Administered Discontinued Medications Generic Name Dose Route Start Last Admin Trade Name Freq PRN Reason Stop Dose Admin Cyclobenzaprine HCl 10 mg 08/31/23 09:24 08/31/23 09:43 Cyclobenzaprine Hcl 10 Mg Tablet PO 08/31/23 09:25 10 mg ONCE ONE Administration Lidocaine 1 patch 08/31/23 09:24 08/31/23 09:43 Lidocaine 4 % Patch Adh..Patch TRANSDERMA 08/31/23 09:25 1 patch ONCE ONE Administration Protocol Oxycodone HCl 5 mg 08/31/23 10:24 08/31/23 10:29 Oxycodone Hcl Immed Release 5 Mg Tablet PO 08/31/23 10:25 5 mg ONCE ONE Administration Medical Decision Making Medical Decision Making [facility] Narrative: 73-year-old male with a past medical history of AUBRIE, CKD, HTN, HLD, emphysema, GERD, presenting to the ED complaining of acute on chronic right-sided low back pain x weeks worsening over the past few days. On exam vital signs stable, NAD, nontoxic appearing, physical exam as noted above without midline spinous tenderness or red flag symptoms. Ambulating with steady gait. Concern for MSK pain/strain vs herniated disc vs degenerative disc disease. Unlikely renal stone/pyelo or UTI. Plan: Labs, UA, x-ray per patient request, pain control, re-evaluate Please refer to course for remaining clinical decision making, interpretation of labs/imaging results, and discussions with consultants and/or family members. Differential Diagnosis Differential Diagnoses: The differential diagnosis associated with the presentation includes As above Admission/Observation Consideration of admission/observation: Escalation of care including admission/observation considered Lab Data [facility] Lab Attestation statement: I reviewed the patient's lab results. 08/31/23 09:36 08/31/23 09:36 Labs: Lab Results 08/31/23 Range/Units 09:36 WBC 10.3 (4.8-10.8) X10*3/uL RBC 5.24 (4.60-5.80) X10*6/uL Hgb 16.0 (14.0-18.0) g/dl Hct 47.8 (42.0-52.0) % MCV 91.2 (80.0-98.0) fL MCH 30.5 (27.0-33.0) pg MCHC 33.5 (31.0-36.0) g/dl RDW 14.9 (11.0-16.0) % Plt Count 213 (160-400) X10*3/uL MPV 9.8 (9.4-12.4) fL Immature Gran % (Auto) 0.6 H (0.0-0.4) % Neut % (Auto) 72.1 (45-73) % Lymph % (Auto) 17.5 L (20-40) % [place] % (Auto) 6.6 (2-11) % Eos % (Auto) 2.7 (0-4) % Baso % (Auto) 0.5 (0-2) % Lymph # (Auto) 1.8 (1.2-4.9) X10*3/uL [place] # (Auto) 0.7 (0.1-1.2) X10*3/uL Eos # (Auto) 0.3 (0.0-0.4) X10*3/uL Baso # (Auto) 0.1 (0.0-0.2) X10*3/uL Abs Immat Gran (auto) 0.06 H (0.00-0.03) X10*3/uL Absolute Neuts (auto) 7.4 (2.0-8.3) x10*3/uL Absolute Nucleated RBC 0.000 (0.0-0.012) X10*3/uL Nucleated RBC % (auto) 0.0 (0.0-0.2) /100WBC Sodium 140 (135-145) mmol/L Potassium 4.1 (3.3-5.1) mmol/L Chloride 104 (96-108) mmol/L Carbon Dioxide 26 (22-29) mmol/L Anion Gap 14 (12-20) BUN 31 H (9-16) mg/dL Creatinine 1.82 H (0.5-1.4) mg/dL Estim Creat Clear Calc 36.1 Estimated GFR 37 Random Glucose 126 H (60-115) mg/dL Calcium 9.8 (8.4-10.2) mg/dL Urine Color Yellow Urine Appearance Clear Urine pH 6.0 (5.0-9.0) Ur Specific [place] 1.010 (1.005-1.025) Urine Protein Negative (Neg-Trace) mg/dL Urine Glucose (UA) Negative (Negative) mg/dL Urine Ketones Negative (Negative) mg/dL Urine Blood Negative (Negative) Urine Nitrite Negative (Negative) Ur Leukocyte Esterase Negative (Negative) Independent Interpretation I performed an independent interpretation of an: Plain X-Ray Radiology Impression Discussion of test interpretation with radiology: I have reviewed the radiologist's reading. Independent Historian Clinical information obtained from an independent historian. History obtained from or confirmed by: Spouse External Record Review External record reviewed: Inpatient record, Office record, Outpatient record, Prior outpatient labs, Prior outpatient radiology, Primary care record and Outside ED record Tests considered The following testing was considered but not selected: As above Prescription Management I considered prescription management with: Pain Medication Chronic Conditions Patient?s care impacted by: Hypertension and Other (CKD) Discharge Plan Discharge Clinical Impression: Degenerative disc disease, lumbar Patient Disposition: Home, Self-Care Instructions: Back Pain (ED) Additional Instructions: Your pain is likely musculoskeletal/degenerative disc disease. Flexeril is a muscle relaxer, take at night as it makes you drowsy, do not drive, drink alcohol, or operate machinery while taking it Continue to take Tylenol Oxycodone is an opiate pain medication, take only when pain is severe for the next 3 days Lidoderm patches are numbing patches, apply to painful area Please call your spine doctor for close follow-up If symptoms persist or worsen, pain becomes unbearable, you developed urinary retention or incontinence, or weakness return to the ED Prescriptions: New lidocaine [Lidoderm] 5 % adhesive patch,medicated 1 patch topical DAILY MDD remove after 12 hours PRN (Reason: pain) Qty: 30 0RF Rx Instructions: leave on most painful area for up to 12 hrs cyclobenzaprine 5 mg tablet 5 mg PO Q8H PRN (Reason: pain (scale score 7-10)) 5 Days Qty: 14 0RF oxycodone 5 mg capsule 5 mg PO Q8H PRN (Reason: pain, severe) 3 Days Qty: 9 0RF Rx Instructions: Partial Fill upon patient request. No Action omeprazole 20 mg capsule,delayed release(DR/EC) 20 mg PO DAILY Januvia 50 mg tablet 50 mg PO DAILY terazosin 10 mg capsule 10 mg PO BEDTIME 90 Days Qty: 90 1RF tadalafil 20 mg tablet 20 mg PO ONCE PRN (Reason: sexual activity) 30 Days Qty: 30 0RF Rx Instructions: On demand medication take 60 minutes before intended activity lisinopril-hydrochlorothiazide 20-25 mg tablet 1 tab PO DAILY famotidine 40 mg tablet 40 mg PO BEDTIME pravastatin 80 mg tablet 80 mg PO DAILY finasteride 5 mg tablet 5 mg PO DAILY Referrals: [facility] [Outside] Arelis Severino MD [Primary Care Provider] - Interventions: ED Discharge Assessment Last Done: 08/31/23 11:39 Discharge Date/Time: 08/31/23 11:40 Print Language: Setswana
[2023-08-31] MEDS: Lidocaine 4 % Patch ADH..PATCH 1 PATCH TRANSDERMA (09:43)
[2023-08-31] MEDS: Cyclobenzaprine HCl 10 MG TABLET PO (09:43)
[2023-08-31 09:52] LABS: MANUAL DIFF FLAG NO
[2023-08-31 09:54] LABS: Basophils Absolute Auto 0.1 X10*3/uL (0.0-0.2); Basophils Percent Auto 0.5 % (0-2); Eosinophils Absolute Auto 0.3 X10*3/uL (0.0-0.4); Eosinophils Percent Auto 2.7 % (0-4); Hematocrit 47.8 % (42.0-52.0); Imm Gran Abs Auto 0.06 X10*3/uL (0.00-0.03); Imm Gran Pct Auto 0.6 % (0.0-0.4); Lymphocytes Absolute Auto 1.8 X10*3/uL (1.2-4.9); Lymphocytes Percent Auto 17.5 % (20-40); Mean Corpuscular HGB Conc 33.5 g/dl (31.0-36.0); Mean Corpuscular Hemoglobin 30.5 pg (27.0-33.0); Mean Corpuscular Volume 91.2 fL (80.0-98.0); Mean Platelet Volume 9.8 fL (9.4-12.4); Monocytes Absolute Auto 0.7 X10*3/uL (0.1-1.2); Monocytes Percent Auto 6.6 % (2-11); Neutrophils Absolute Auto 7.4 x10*3/uL (2.0-8.3); Neutrophils Percent Auto 72.1 % (45-73); Platelet Count 213 X10*3/uL (160-400); Red Blood Count 5.24 X10*6/uL (4.60-5.80); Red Cell Distribution Width 14.9 % (11.0-16.0); White Blood Count 10.3 X10*3/uL (4.8-10.8)
[2023-08-31 10:00] VITALS: BP 130/61; PULSE 64; TEMP 36.7; O2SAT 95
[2023-08-31 10:05] LABS: Appearance Urine Clear; Color Urine Yellow; Glucose Urine UA Negative (Negative); Leukocyte Esterase Urine Negative (Negative); Nitrite Urine Negative (Negative); Urine Blood Negative (Negative); Urine Ketones Negative (Negative); Urine Protein Negative (Neg-Trace)
[2023-08-31 10:13] LABS: Anion Gap 14 (12-20); Blood Urea Nitrogen 31 mg/dL (9-16); Calcium 9.8 mg/dL (8.4-10.2); Carbon Dioxide 26 mmol/L (22-29); Chloride 104 mmol/L (96-108); Creatinine Clr Calc Pharmacy 36.1; Estimated Glomerular Filt Rate 37; Glucose Random 126 mg/dL (60-115); Potassium 4.1 mmol/L (3.3-5.1); Sodium 140 mmol/L (135-145)
[2023-08-31] MEDS: oxyCODONE HCl Immed Release 5 MG TABLET PO (10:29)
[2023-08-31 11:39] VITALS: BP 130/61; PULSE 64; RESP 18; TEMP 36.7; O2SAT 95
--- NOTE | 2023-08-31 11:39 | PC.NURSE ---
AMBULATORY OUT OF ED WITH GOOD PAIN CONTROL AND TOLERANCE
== END 2023-08-31 11:40 | disposition home or self-care (01) ==
PROVIDERS: Physician Assistant; Emergency Provider Student in an Organized Health Care Education/Training Program; PCP Internal Medicine
DX: M51.36 Other intervertebral disc degeneration, lumbar region (principal); I12.9 Hypertensive chronic kidney disease with stage 1 through stage 4 chronic kidney disease, or unspecified chronic kidney disease; N18.9 Chronic kidney disease, unspecified
CPT/HCPCS: 36415; 72100; 80048; 81003; 85025; 99283; 99284

== ENCOUNTER 2023-09-01 06:05 | Outpatient (REF) | payer MEDICARE, MEDICAID, SELFPAY ==
[2023-09-01 10:44] LABS: Estimated Average Glucose 137 mg/dL; Hemoglobin A1c % 6.4 % (<6.0)
[2023-09-01 11:00] LABS: Alanine Aminotransferase 11 U/L (0-40); Albumin Level 4.2 g/dL (3.5-5.0); Alkaline Phosphatase 84 U/L (39-117); Anion Gap 13 (12-20); Aspartate Amino Transferase 14 U/L (5-37); Bilirubin Total 0.5 mg/dL (0.0-1.0); Blood Urea Nitrogen 31 mg/dL (9-16); Calcium 9.3 mg/dL (8.4-10.2); Carbon Dioxide 25 mmol/L (22-29); Chloride 106 mmol/L (96-108); Estimated Glomerular Filt Rate 37; Glucose Random 127 mg/dL (60-115); Potassium 4.6 mmol/L (3.3-5.1); Sodium 139 mmol/L (135-145); Total Protein 7.2 g/dL (6.5-8.0)
== END 2023-09-01 06:06 | disposition home or self-care (01) ==
LOC: HO.HMGCLDS 06:05
PROVIDERS: PCP Internal Medicine; Visit Provider Internal Medicine
DX: I12.9 Hypertensive chronic kidney disease with stage 1 through stage 4 chronic kidney disease, or unspecified chronic kidney disease (principal); E11.22 Type 2 diabetes mellitus with diabetic chronic kidney disease; N18.9 Chronic kidney disease, unspecified; J44.9 Chronic obstructive pulmonary disease, unspecified; N28.89 Other specified disorders of kidney and ureter
CPT/HCPCS: 36415; 80053; 83036

== ENCOUNTER 2023-09-14 17:13 | Emergency (ER) | payer MEDICARE, OTHER, SELFPAY ==
[2023-09-14 17:23] VITALS: BP 155/78; PULSE 104; RESP 18; TEMP 36.6; O2SAT 94; BMI 24.7
--- NOTE | 2023-09-14 17:26 | ED_ITS ---
HPI - General Adult General Chief complaint: Back Pain/Injury Stated complaint: severe back pain Source: patient and family (patient's ) Mode of arrival: wheelchair Limitations: no limitations History of Present Illness ED Provider: Delmy Love PA-C HPI narrative: Patient is a 73 year old assigned male at presenting to the emergency department with back pain. Patient states that he has severe back pain when ambulating. Patient states that this has been going on for weeks and he has been on multiple medications for it. Patient states that he was following up with [facility] but they are unhappy with their care and are scheduled [facility]. Patient had an MRI done as an outpatient today but they do not have results or know the name of where it was done. Patient and his states that the patient needs better pain relief. Patient denies any dizziness, lightheadedness, abdominal pain, nausea, vomiting, fever, chills, blurry vision, double vision, loss of vision, chest pain, difficulty breathing, shortness of breath, night sweats, pain with urination, increased urinary frequency, increased urinary urgency, blood in his urine or stool, syncope or a near syncopal episode, recent trauma or falls, bowel incontinence, bladder incontinence, or any other complaints at this time. Relieving factors: none Exacerbating factors: movement Associated symptoms: denies other symptoms Related Data Home Medications ?Medication ?Instructions ?Recorded ?Confirmed omeprazole 20 mg capsule,delayed 20 mg PO DAILY 03/16/20 07/08/23 release famotidine 40 mg tablet 40 mg PO BEDTIME 09/13/21 07/08/23 finasteride 5 mg tablet 5 mg PO DAILY 09/13/21 07/08/23 lisinopril 20 1 tab PO DAILY 09/13/21 07/08/23 mg-hydrochlorothiazide 25 mg tablet pravastatin 80 mg tablet 80 mg PO DAILY 09/13/21 07/08/23 sitagliptin phosphate 50 mg tablet 50 mg PO DAILY 09/16/22 07/08/23 ([place]) Previous Rx's ?Medication ?Instructions ?Recorded tadalafil 20 mg tablet 20 mg PO ONCE PRN sexual activity 09/16/22 30 days #30 tabs terazosin 10 mg capsule 10 mg PO BEDTIME 90 days #90 caps 09/16/22 cyclobenzaprine 5 mg tablet 5 mg PO Q8H PRN pain (scale score 08/31/23 7-10) 5 days #14 tabs lidocaine 5 % topical patch 1 patch topical DAILY PRN pain #30 08/31/23 (Lidoderm) ea oxycodone 5 mg capsule 5 mg PO Q8H PRN pain, severe 3 08/31/23 days #9 caps cyclobenzaprine 10 mg tablet 10 mg PO TID PRN muscle spasm #14 09/15/23 tabs oxycodone 5 mg tablet 5 mg PO Q8H PRN severe pain (scale 09/15/23 score 7-10) #9 tabs Allergies Allergy/AdvReac Type Severity Reaction Status Date / Time Sulfa (Sulfonamide Allergy Severe Fever Verified 09/15/23 06:50 Antibiotics) sulfamethoxazole Allergy Intermediate FEVER Verified 09/15/23 06:50 [From BACTRIM] trimethoprim [From BACTRIM] Allergy Intermediate FEVER Verified 09/15/23 06:50 Review of Systems Constitutional: Constitutional: Reports no additional constitutional complaints, Denies chills, Denies fever(s) and Denies night sweats Eyes: Eyes: Reports no additional eye complaints, Denies blurry vision, Denies change in vision, Denies diplopia, Denies eye discharge, Denies loss of vision and Denies eye pain ENT: Denies dizziness Cardiovascular: Cardiovascular: Reports no additional cardiovascular complaints, Denies chest pain, Denies lightheadedness, Denies Loss of Consciousness and Denies dyspnea Respiratory: Respiratory: Reports no additional respiratory complaints and Denies dyspnea Gastrointestinal: Gastrointestinal: Reports no additional gastrointestinal complaints, Denies abdominal pain, Denies melena, Denies hematochezia, Denies change in bowel habits and Denies change in stool character Genitourinary: Genitourinary: Reports no additional male genitourinary c omplaints, Denies hematuria, Denies oliguria, Denies difficulty urinating, Denies dysuria, Denies urinary frequency, Denies urinary hesitancy, Denies urinary incontinence and Denies urinary urgency Musculoskeletal: Musculoskeletal: Reports no additional musculoskeletal complaints, Reports back pain, Denies numbness and Denies tingling Neurologic: Denies dizziness, Denies loss of vision, Denies numbness and Denies tingling Psychiatric: Psychiatric: Reports no additional psychiatric complaints Endocrine: Endocrine: Reports no additional endocrine complaints Hematologic/Lymphatic: Hematologic/Lymphatic: Reports no additional hematologic/lymphatic complaints Allergic/Immunologic: Allergic/Immunologic: Reports no additional allergic/immunologic complaints [facility] Past Medical History Attestation statement: The following information was validated with the patient. (all information validated with the patient's ) Source: old records reviewed, obtained from family (patient's provided a dditional history and confirmed the history provided by the patient) and nursing notes reviewed Medical History Left renal mass Complex renal cyst Tubular adenoma of colon (~2012) Personal history of nicotine dependence Diverticulosis Large cell neuroendocrine carcinoma (~2017) Lumbar radiculopathy BPH (benign prostatic hyperplasia) GERD (gastroesophageal reflux disease) Anxiety AUBRIE (obstructive sleep apnea) IFG (impaired fasting glucose) Hyperlipidemia Hypertension CKD (chronic kidney disease) Emphysema lung Surgical History History of colonoscopy History of lobectomy of lung (~2017) Social History Social History Patient Tobacco Use Status: Current everyday Tobacco user Tobacco use type: Cigarette Cigarettes Per Day: 10 Years Smoked: 65 Advance Directives: No Advance Directives Information Provided: Yes Do you have a plan to hurt others: No Plan Physical Exam ED Vital Signs: BMI result Body Mass Index 24.7 Const General: cooperative, no acute distress, alert and awake Nutritional Appearance: well nourished Orientation/consciousness: patient oriented x3 Limitations: no limitations HENMT Head: Yes normal to inspection and Yes atraumatic Ears: hearing grossly normal bilaterally and external ears normal General nose exam: Normal external nose present, no nasal discharge noted and no epistaxis Face and sinus: Yes normal facial exam, No abrasion and No laceration Mouth: Normal oral and palatal mucosa present, no drooling and no muffled voice Eyes General: appearance normal, both eyes and all related structures Periorbital: periorbital findings normal Eyelids: Yes eyelids normal Conjunctivae: conjunctivae normal Pupils: Equal, round and reactive pupils present EOM: EOMs intact bilaterally Neck Neck: Yes normal visual inspection, Yes full ROM and Yes no lymphadenopathy Chest Chest palpation & inspection: normal inspection of the chest Resp Effort & Inspection: normal respiratory effort and able to speak in complete sentences GI Inspection: Yes normal to inspection Neuro General: patient oriented x3 and moves all extremities Cranial nerves: Yes Equal, round and reactive pupils present Cognition (Neuro): normal cognition Motor exam (neuro): 5/5 motor strength present throughout Sensory Exam: Normal double simultaneous stimulation for sensation Coordination: [id number] test normal Extrem General: Yes normal to inspection, Yes full ROM and Yes capillary refill normal Psych Appearance: grossly normal Mental Status: mental status grossly normal Affect: normal affect Attitude: cooperative Thought process: Normal thought process present Thought content: Normal thought content present Insight: Good insight present (Psych) Course Course Course Narrative: RME performed by Delmy Love PA-C. Patient is a 73 year old assigned male at presenting to the emergency department with back pain. Patient states that he has severe back pain when ambulating. Patient states that this has been going on for weeks and he has been on multiple medications for it. Patient states that he was following up with [facility] but they are unhappy with their care and are scheduled [facility]. Patient had an MRI done as an outpatient today but they do not have results or know the name of where it was done. Patient and his states that the patient needs better pain relief. Detailed physical exam and review of systems are deferred to the outreach clinician. Patient placed back in the waiting room pending room availability. Medical Decision Making Medical Decision Making MDM Narrative: Patient is a 73 year old assigned male at with a history of chronic back pain presenting to the emergency department today with worsening back pain. Patient's limited physical exam performed in triage was unremarkable. Patient left the department without completing treatment. Patient left the department before myself or any of the other emergency department clinicians could explain to or review with the patient; physical exam findings, test results, need or lack there of for additional testing, need or lack there of for a procedure to be performed, need or lack there of for hospital admission / transfer, need or lack there of for prescription medication, treatment options, or a treatment plan. Differential Diagnosis Differential Diagnoses: The differential diagnosis associated with the presentation includes Chronic back pain Acute on chronic low back pain Admission/Observation Consideration of admission/observation: Escalation of care including admission/observation considered Patient would have been admitted to the hospital had he completed his work up and it had any findings where hospital admission was appropriate, his clinical presentation warranted hospital admission, had myself or any other emergency branch or department chief librarian had the ability to discuss need or lack there of for hospital admission, and the patient hadn't left the department without completing treatment. Independent Historian Clinical information obtained from an independent historian. History obtained from or confirmed by: Spouse (patient's provided additional history and confirmed the history provided by the patient.) Discharge Plan Discharge Clinical Impression: Back pain Patient Disposition: Left W/O Completing Treatment Prescriptions: No Action lidocaine [Lidoderm] 5 % adhesive patch,medicated 1 patch topical DAILY MDD remove after 12 hours PRN (Reason: pain) Qty: 30 0RF Rx Instructions: leave on most painful area for up to 12 hrs cyclobenzaprine 5 mg tablet 5 mg PO Q8H PRN (Reason: pain (scale score 7-10)) 5 Days Qty: 14 0RF oxycodone 5 mg capsule 5 mg PO Q8H PRN (Reason: pain, severe) 3 Days Qty: 9 0RF Rx Instructions: Partial Fill upon patient request. oxycodone 5 mg tablet 5 mg PO Q8H PRN (Reason: severe pain (scale score 7-10)) Qty: 9 0RF Rx Instructions: Partial Fill upon patient request. cyclobenzaprine 10 mg tablet 10 mg PO TID PRN (Reason: muscle spasm) Qty: 14 0RF omeprazole 20 mg capsule,delayed release(DR/EC) 20 mg PO DAILY Januvia 50 mg tablet 50 mg PO DAILY terazosin 10 mg capsule 10 mg PO BEDTIME 90 Days Qty: 90 1RF tadalafil 20 mg tablet 20 mg PO ONCE PRN (Reason: sexual activity) 30 Days Qty: 30 0RF Rx Instructions: On demand medication take 60 minutes before intended activity lisinopril-hydrochlorothiazide 20-25 mg tablet 1 tab PO DAILY famotidine 40 mg tablet 40 mg PO BEDTIME pravastatin 80 mg tablet 80 mg PO DAILY finasteride 5 mg tablet 5 mg PO DAILY Discharge Date/Time: 09/14/23 21:41
== END 2023-09-14 21:41 | disposition left against medical advice (07) ==
PROVIDERS: Emergency Provider Emergency Medicine; PCP Internal Medicine
DX: M54.9 Dorsalgia, unspecified (principal); I12.9 Hypertensive chronic kidney disease with stage 1 through stage 4 chronic kidney disease, or unspecified chronic kidney disease; N18.9 Chronic kidney disease, unspecified; J43.9 Emphysema, unspecified
CPT/HCPCS: 99281; 99282

== ENCOUNTER 2023-09-15 06:39 | Emergency (ER) | payer MEDICARE, OTHER, SELFPAY ==
[2023-09-15 06:49] VITALS: BP 133/58; PULSE 90; RESP 16; TEMP 36.6; O2SAT 95; BMI 24.4
--- NOTE | 2023-09-15 08:23 | ED.BACK ---
HPI - Back Pain/Injury General Chief Complaint: Back Pain/Injury Stated Complaint: Back pain/R leg swelling Time Seen by Provider: 09/15/23 08:09 Source: patient Mode of arrival: ambulatory Limitations: no limitations History of Present Illness ED Provider: Luis Alfredo Kelly PA-C HPI Narrative: 73 y/o male with history of CKD III, chronic low back pain with sciatica who presents to the ER for evaluation of acute on chronic right-sided low back pain. Patient states the pain is 10/10, especially with walking and trying to sleep at night. He is able to take 5 steps but then gets excruciating pain. He has been seen by [facility], had 2 cortisone shots with minimal relief. Had an MRI done yesterday with plans to see Dr. Cortes from neuro spine on Thursday. He is currently not taking any medications for the pain. He was seen here in August, got a short course of oxycodone with brief improvement in his pain. He also had a taper of steroids from his primary care doctor, completed them about a week ago. He also had mild relief with this. He states the pain is primarily in the right lower back, radiates all the way down to his toes. It is worse with any movement. At times the pain radiates into the groin. No saddle paresthesias. He reports chronic urinary issues, unchanged from his baseline. No bowel issues. No fevers. MD elicited complaint: back pain Pertinent past history: prior back pain Onset (ago): week(s) Timing: constant Severity: severe Pain scale (0-10): 10 Similar Symptoms Previously: Yes Quality: sharp Location: lumbar spine and right lower back Radiation: right upper leg and right leg below the knee Exacerbating factors: movement and walking Relieving factors: immobilization Context: unknown Associated symptoms: parasthesias Work related injury: No Related Data Home Medications ?Medication ?Instructions ?Recorded ?Confirmed omeprazole 20 mg capsule,delayed 20 mg PO DAILY 03/16/20 07/08/23 release famotidine 40 mg tablet 40 mg PO BEDTIME 09/13/21 07/08/23 finasteride 5 mg tablet 5 mg PO DAILY 09/13/21 07/08/23 lisinopril 20 1 tab PO DAILY 09/13/21 07/08/23 mg-hydrochlorothiazide 25 mg tablet pravastatin 80 mg tablet 80 mg PO DAILY 09/13/21 07/08/23 sitagliptin phosphate 50 mg tablet 50 mg PO DAILY 09/16/22 07/08/23 (Januvia) Previous Rx's ?Medication ?Instructions ?Recorded tadalafil 20 mg tablet 20 mg PO ONCE PRN sexual activity 09/16/22 30 days #30 tabs terazosin 10 mg capsule 10 mg PO BEDTIME 90 days #90 caps 09/16/22 cyclobenzaprine 5 mg tablet 5 mg PO Q8H PRN pain (scale score 08/31/23 7-10) 5 days #14 tabs lidocaine 5 % topical patch 1 patch topical DAILY PRN pain #30 08/31/23 (Lidoderm) ea oxycodone 5 mg capsule 5 mg PO Q8H PRN pain, severe 3 08/31/23 days #9 caps cyclobenzaprine 10 mg tablet 10 mg PO TID PRN muscle spasm #14 09/15/23 tabs oxycodone 5 mg tablet 5 mg PO Q8H PRN severe pain (scale 09/15/23 score 7-10) #9 tabs Allergies Allergy/AdvReac Type Severity Reaction Status Date / Time Sulfa (Sulfonamide Allergy Severe Fever Verified 09/15/23 06:50 Antibiotics) sulfamethoxazole Allergy Intermediate FEVER Verified 09/15/23 06:50 [From BACTRIM] trimethoprim [From BACTRIM] Allergy Intermediate FEVER Verified 09/15/23 06:50 Review of Systems Review of Systems: Yes all other systems are reviewed and are negative PMFSH Past Medical History Medical History Left renal mass Complex renal cyst Tubular adenoma of colon (~2012) Personal history of nicotine dependence Diverticulosis Large cell neuroendocrine carcinoma (~2017) Lumbar radiculopathy BPH (benign prostatic hyperplasia) GERD (gastroesophageal reflux disease) Anxiety AUBRIE (obstructive sleep apnea) IFG (impaired fasting glucose) Hyperlipidemia Hypertension CKD (chronic kidney disease) Emphysema lung Surgical History History of colonoscopy History of lobectomy of lung (~2017) Social History Social History Patient Tobacco Use Status: Current everyday Tobacco user Tobacco use type: Cigarette Cigarettes Per Day: 10 Years Smoked: 65 Advance Directives: No Advance Directives Information Provided: Yes Do you have a plan to hurt others: No Plan Physical Exam Vital Signs: Vital Signs: Last Vital Signs Temp 97.8 F 09/15/23 08:32 Pulse 90 09/15/23 08:32 Resp 16 09/15/23 08:32 BP 133/58 L 09/15/23 08:32 Pulse Ox 95 09/15/23 08:32 O2 Del Method Room Air 09/15/23 06:49 BMI result Body Mass Index 24.4 Appearance: Alert. Oriented X3. No acute distress. Sitting in a wheelchair HEENT: normal external inspection. Neck: Normal inspection. CVS: Normal heart rate and rhythm. Pulses normal. Respiratory: No respiratory distress. Breath sounds normal. Abdomen: Soft and nontender. +BS x4 Back: Normal inspection. Tenderness of the right middle lumbar area. Limited exam due to pain. Skin: Skin warm and dry. Normal skin color. Normal skin turgor. No rashes. Extremities: Bilateral 2+ edema of the feet and ankles only, no swelling of the lower leg, no calf tenderness. Neuro/psych: Oriented X 3. Decreased DTR in the right knee. Medications Administered Discontinued Medications Generic Name Dose Route Start Last Admin Trade Name Freq PRN Reason Stop Dose Admin Oxycodone HCl 5 mg 09/15/23 08:22 09/15/23 08:28 Oxycodone Hcl Immed Release 5 Mg Tablet PO 09/15/23 08:23 5 mg ONCE ONE Administration Medical Decision Making Medical Decision Making MDM Narrative: 73-year-old male presenting to the ER for evaluation of acute on chronic low back pain. The pain is in the right lower back and radiates down to the the right toes. Worse with ambulation. No improvement with cortisone injections by [facility]. He is seeing Dr. Cortes on Thursday. Just had MRI done yesterday. Patient is in severe pain with movement. Has no red flag symptoms of low back pain. He just had advanced imaging done yesterday. No evidence of cauda equina at this time. Will represcribe short course of narcotic pain medication and muscle relaxers to help with the pain and allow him to sleep. Pain improved after medication here. He is stable for discharge home with outpatient follow-up with neuro spine. Differential Diagnosis Differential Diagnoses: The differential diagnosis associated with the presentation includes Inflammatory disorders, malignancy, trauma, osteoporosis, nerve root compression, radiculopathy, plexopathy, degenerative disc disease, disc herniation, spinal stenosis, sacroiliac joint dysfunction, facet joint injury, and less likely infection?like abscess or diskitis External Record Review External record reviewed: Prior outpatient labs and Prior outpatient radiology Prescription Management I considered prescription management with: Pain Medication Chronic Conditions Patient?s care impacted by: Other (Lumbar radiculopathy, disc disease) Critical Care Time Critical Care Time Critical Care Time: No Discharge Plan Discharge Clinical Impression: Lumbar radiculopathy Chronic low back pain Qualifiers: Back pain laterality: right Sciatica presence: with sciatica Sciatica laterality: sciatica of right side Qualified Code(s): M54.41 - Lumbago with sciatica, right side Patient Disposition: Home, Self-Care Instructions: Pain Management (ED), Lumbar Radiculopathy (ED) Additional Instructions: take the prescribed oxycodone as needed for severe pain only Take Tylenol 1000 mg every 8 hours around the clock. Elevate your feet whenever possible to help with swelling. Also recommend adding compression stockings. Follow-up with the intelligence research specialist as scheduled on Thursday. If you develop new or worsening symptoms call 911 or come back to the ER for further evaluation. Prescriptions: New oxycodone 5 mg tablet 5 mg PO Q8H PRN (Reason: severe pain (scale score 7-10)) Qty: 9 0RF Rx Instructions: Partial Fill upon patient request. cyclobenzaprine 10 mg tablet 10 mg PO TID PRN (Reason: muscle spasm) Qty: 14 0RF No Action lidocaine [Lidoderm] 5 % adhesive patch,medicated 1 patch topical DAILY MDD remove after 12 hours PRN (Reason: pain) Qty: 30 0RF Rx Instructions: leave on most painful area for up to 12 hrs cyclobenzaprine 5 mg tablet 5 mg PO Q8H PRN (Reason: pain (scale score 7-10)) 5 Days Qty: 14 0RF oxycodone 5 mg capsule 5 mg PO Q8H PRN (Reason: pain, severe) 3 Days Qty: 9 0RF Rx Instructions: Partial Fill upon patient request. omeprazole 20 mg capsule,delayed release(DR/EC) 20 mg PO DAILY Januvia 50 mg tablet 50 mg PO DAILY terazosin 10 mg capsule 10 mg PO BEDTIME 90 Days Qty: 90 1RF tadalafil 20 mg tablet 20 mg PO ONCE PRN (Reason: sexual activity) 30 Days Qty: 30 0RF Rx Instructions: On demand medication take 60 minutes before intended activity lisinopril-hydrochlorothiazide 20-25 mg tablet 1 tab PO DAILY famotidine 40 mg tablet 40 mg PO BEDTIME pravastatin 80 mg tablet 80 mg PO DAILY finasteride 5 mg tablet 5 mg PO DAILY Interventions: ED Discharge Assessment Last Done: 09/15/23 08:32 Discharge Date/Time: 09/15/23 08:33 Print Language: Irish
[2023-09-15] MEDS: oxyCODONE HCl Immed Release 5 MG TABLET PO (08:28)
[2023-09-15 08:32] VITALS: BP 133/58; PULSE 90; RESP 16; TEMP 36.6; O2SAT 95
== END 2023-09-15 08:33 | disposition home or self-care (01) ==
PROVIDERS: Emergency Provider Emergency Medicine; PCP Internal Medicine
DX: M54.16 Radiculopathy, lumbar region (principal); M54.41 Lumbago with sciatica, right side; R60.0 Localized edema; Z79.899 Other long term (current) drug therapy
CPT/HCPCS: 99283

== ENCOUNTER 2023-09-18 10:24 | Outpatient (AMB) | payer MEDICARE, SELFPAY ==
--- NOTE | 2023-09-18 10:33 | A.SPINEOV_ITS ---
Intake Visit Reasons: Low back pain Intake Note: Mr. Brooks is here today c/o low back pain that radiates down the legs causing swelling on the right foot. Electronic Systems Technician Required: No Allergies Sulfa (Sulfonamide Antibiotics) Allergy (Severe, Verified 09/15/23 06:50) Fever sulfamethoxazole [From BACTRIM] Allergy (Intermediate, Verified 09/15/23 06:50) FEVER trimethoprim [From BACTRIM] Allergy (Intermediate, Verified 09/15/23 06:50) FEVER Assessment & Plan Assessment & Plan (1) Lumbar disc herniation: Code(s): M51.26 - Other intervertebral disc displacement, lumbar region Category: Medical Plan Dear Dr Severino This is a self-referred 73-year-old gentleman who has had on and off issues with his back most of his life, but has had over the last 6-8 weeks a severe and unrelenting pain that starts in his right low back radiating down into his buttock, hip into his posterolateral thigh going into the calf and top of his foot. His big toe is numb in his right foot has been getting weaker. He has been through fairly aggressive conservative management for such a short period of time. The pain has been so bad, he went to the [facility] and underwent 2 injections. The 1st 1 did nothing but the 2nd 1 left him almost incapacitated. He has had severe spasms going down his leg and even went to the emergency room recently. He has been on steroids, Lyrica, narcotics including oxycodone, cyclobenzaprine, ibuprofen, Tylenol etc.. He has done physical therapy in the past for his back and has tried to do the exercises at home as he has been guided by a therapist previously, but has been unable to tolerate them secondary to pain. He has gotten to the point now where he can barely walk. He came in the office today in a wheelchair with an MRI showing herniated disc on the right at L4-5 compressing the right L5 nerve root. PMH: He is a little unclear about some of the details of his medical history, but tells me he has a history of lifelong smoking, COPD, he does not use oxygen. He can walk the stairs in his house with some shortness of breath. He rides his bike about 10 miles a day. He had a history of non-small cell lung cancer and had a right upper lobe lobectomy and that seems to have put him in remission. He has followed by an oncologist yearly. More recently earlier this year he underwent a kidney procedure due to what he believes was some kind of mass on the outside of the kidney. The records here indicate it was renal cell carcinoma. He had some kind of procedure that sounds like the either did radiofrequency or radiation directly to it and has been told that that should stabilize the mass. He is a diabetic, he does believe that his A1c is good he recalls it being sometime recently around the value of 6 which is confirmed in the lab values here [place]. He has chronic kidney disease, his last creatinine was 1.79. History of hypertension, BPH, high cholesterol. He denies any history of heart attacks, strokes, bleeding disorders, blood clots, liver disease, major abdominal surgery. Social hx: He continues to smoke about a pack a day this has been a lifelong have it. It does not smoke marijuana use any recreational drugs or alcohol Medications: Finasteride, Januvia, cyclobenzaprine, oxycodone, famotidine, finasteride, lisinopril/hydrochlorothiazide, omeprazole, pravastatin, Cialis, terazosin Allergies: Bactrim Physical exam: He has in a wheelchair today, he can barely stand up because of the pain he is in. He has a 3/5 weakness of his right tibialis. Positive straight leg raise at 20 degrees. Rest of his motor exam is normal. Diminished reflexes bilaterally at the patella. No clonus. Imaging review: Lumbar MRI done at the [facility] shows a large herniated disc on the right at L4-5 compressing the right L5 nerve root. There other degenerative changes. Impression: 73-year-old male presents to the office today with a 6 week to 8 week history of acute right L5 radiculopathy secondary to herniated disc on the right at L4-5. The pain has become so severe he has in a wheelchair, he has been to the emergency room, he is now starting to develop footdrop. He is tried numerous conservative treatments but things have become almost unbearable. I am going to schedule him for a microdiskectomy in 2 weeks. We are going to need a clearance note from your office just giving us some level of understanding of his lung status and capacity. It sounds like he had a procedure and underwent general anesthesia earlier this year and did okay with it. If you could assist us with that note that would be appreciated. He will stop his Januvia 2 days prior to surgery. I will update Dr. Baird on his status and amend my note if he has any other thoughts. Pt was given risk and benefits of surgery including but not limited to infection, hematoma , nerve injury,durotomy, weakness,bowel/bladder injury, persistent pain, recurrent disc herniation as well as the option to continue with conservative treatment and patient wishes to proceed with surgery. Pt is aware they should stop their motrin, aspirin 7 days prior to surgery. All questions were answered to the best of our ability. If there is anything about this patients medical history that we have overlooked or concerns you have about us proceeding with surgery we would appreciate any input you can offer. Thank you for allowing us to care for your patient. The total time spent with this visit with this patient was 45 minutes reviewing history, physical exam, lumbar imaging review, and implementation of treatment plan or further diagnostic testing Waldemar Baird MD,PhD [facility] Medications: Refilled cyclobenzaprine 10 mg PO TID PRN 30 tabs 0RF muscle spasm oxycodone Partial Fill upon patient request. 5 mg PO Q8H PRN 20 tabs 0RF severe pain (scale score 7-10) Coding Level of Care Code New Pt Level 4 (43821) Diagnoses Lumbar disc herniation M51.26
== END 2023-09-18 11:20 | disposition home or self-care (01) ==
PROVIDERS: PCP Internal Medicine; Visit Provider Physician Assistant
DX: M51.26 Other intervertebral disc displacement, lumbar region (principal)
CPT/HCPCS: 99204

== ENCOUNTER → 2023-09-18 10:24 | Outpatient (BNVA) | payer MEDICARE, MEDICAID, SELFPAY | PROVIDERS: PCP Internal Medicine; Visit Provider Physician Assistant | DX: M51.26 Other intervertebral disc displacement, lumbar region (principal) | CPT/HCPCS: 99202 ==

== ENCOUNTER 2023-09-29 06:05 | Outpatient (REF) | payer MEDICARE, MEDICAID, SELFPAY ==
[2023-09-29 11:40] LABS: MANUAL DIFF FLAG NO
[2023-09-29 11:54] LABS: Basophils Percent Auto 0.5 % (0-2); Eosinophils Absolute Auto 0.4 X10*3/uL (0.0-0.4); Eosinophils Percent Auto 4.4 % (0-4); Hematocrit 43.6 % (42.0-52.0); Hemoglobin 14.6 g/dl (14.0-18.0); Imm Gran Abs Auto 0.04 X10*3/uL (0.00-0.03); Imm Gran Pct Auto 0.5 % (0.0-0.4); Lymphocytes Absolute Auto 1.5 X10*3/uL (1.2-4.9); Lymphocytes Percent Auto 18.9 % (20-40); Mean Corpuscular HGB Conc 33.5 g/dl (31.0-36.0); Mean Corpuscular Hemoglobin 30.3 pg (27.0-33.0); Mean Corpuscular Volume 90.5 fL (80.0-98.0); Mean Platelet Volume 10.5 fL (9.4-12.4); Monocytes Absolute Auto 0.8 X10*3/uL (0.1-1.2); Neutrophils Absolute Auto 5.3 x10*3/uL (2.0-8.3); Neutrophils Percent Auto 65.7 % (45-73); Platelet Count 235 X10*3/uL (160-400); Red Blood Count 4.82 X10*6/uL (4.60-5.80); Red Cell Distribution Width 14.4 % (11.0-16.0)
[2023-09-29 12:08] LABS: Estimated Average Glucose 140 mg/dL; Hemoglobin A1c % 6.5 % (<6.0)
[2023-09-29 12:18] LABS: Alanine Aminotransferase 9 U/L (0-40); Alkaline Phosphatase 84 U/L (39-117); Anion Gap 13 (12-20); Aspartate Amino Transferase 13 U/L (5-37); Bilirubin Total 0.5 mg/dL (0.0-1.0); Blood Urea Nitrogen 37 mg/dL (9-16); Calcium 9.6 mg/dL (8.4-10.2); Carbon Dioxide 26 mmol/L (22-29); Chloride 102 mmol/L (96-108); Cholesterol 120 mg/dL (<200); Estimated Glomerular Filt Rate 36; Glucose Random 106 mg/dL (60-115); HDL Cholesterol 36 mg/dL (>40); LDL Cholesterol Calculated 60 mg/dL (<100); Potassium 3.9 mmol/L (3.3-5.1); Sodium 137 mmol/L (135-145); Triglycerides 123 mg/dL (<150)
[2023-09-29 12:28] LABS: Creatinine Urine 61.19 mg/dL; Microalbum/Creatinine Ratio Ur 8.1 ug/mg cr (<30)
== END 2023-09-29 06:06 | disposition home or self-care (01) ==
LOC: HO.HMGCLDS 06:05
PROVIDERS: PCP Internal Medicine; Visit Provider Internal Medicine
DX: E11.9 Type 2 diabetes mellitus without complications (principal); I12.0 Hypertensive chronic kidney disease with stage 5 chronic kidney disease or end stage renal disease; M51.16 Intervertebral disc disorders with radiculopathy, lumbar region; Z72.0 Tobacco use
CPT/HCPCS: 36415; 80053; 80061; 82043; 82570; 83036; 85025

== ENCOUNTER 2023-10-07 07:12 | Day surgery (SDC) | payer MEDICARE, OTHER, SELFPAY ==
[2023-09-25 15:54] VITALS: BMI 24.4
[2023-10-07] VITALS (9 sets, daily range): BP systolic 129–174; BP diastolic 49–113; PULSE 79–106; RESP 16–18; TEMP 36.2–36.8; O2SAT 92–99; BMI 24.5
--- NOTE | ~2023-10-07 | FL_ITS ---
EXAMINATION: XR FLUOROSCOPY WITH IMAGES CLINICAL INFORMATION: L4-L5 microlumbar discectomy right. COMPARISON: None available. TECHNIQUE: Fluoroscopy Supervised By: Dr. John Baird. Fluoroscopy Time: 3 seconds. Cumulative Dose: 1.0930 mGy. DAP: 0.4151Gy-cm2. Images: 1. FINDINGS: Intraoperative fluoroscopy and spot films were performed during a procedure in the OR. There is a probe present just beneath the pedicle of the L4 vertebral body. Please correlate with Dr. John Baird' report for complete details. FL/FL guidance in OR IMPRESSION: Intraoperative fluoroscopy and spot films were obtained. Please see Dr. John Baird' report for complete details.
[2023-10-07] MEDS: Gabapentin 300 MG CAPSULE PO (07:59)
[2023-10-07] MEDS: methocarbamoL 750 MG TABLET PO (08:00)
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
[2023-10-07] MEDS: Albuterol Sulfate 2.5 MG, Albuterol/Iprat 2.5/0.5MG 3 ML 3 ML INHALE (08:15)
--- NOTE | 2023-10-07 08:51 | MHC.SHP ---
Pre-Procedural Eval Section A - 24 Hr Update-Section A only Date of Service: 10/07/23 Section B - Complete if H&P > 30 days Chief Complaint: Other intervertebral disc displacement, lumbar Allergies: Allergies Allergy/AdvReac Type Severity Reaction Status Date / Time Sulfa (Sulfonamide Allergy Severe Fever Verified 10/07/23 07:43 Antibiotics) sulfamethoxazole Allergy Severe FEVER Verified 10/07/23 07:43 [From BACTRIM] trimethoprim [From BACTRIM] Allergy Severe FEVER Verified 10/07/23 07:43 Review of Systems Sugical H&P ROS: Negative: Constitution, Cardiovascular, Respiratory, Neurological, Psychiatric, Hem-Onc, Allergic/Immunologic, Gastrointestinal, Genitourinary, Musculoskeletal, Integumentary, Endocrine and Eyes/Ears/Nose/Throat Exam Surgical H&P Exam: Not Evaluated: HEENT, Not Evaluated: Heart, Not Evaluated: Lungs, Not Evaluated: Extremities, Not Evaluated: Abdomen, Not Evaluated: Skin and Not Evaluated: Neurological Exam Comment: The patient is A&0X4 on exam. NAD. Normal respirations. Normal rise and fall of chest. Well perfused. Plan Diagnosis/Plan: Unchanged I have reviewed the history and physical and performed a pertinent physical examination on my patient. No changes have occurred unless specified. Plan remains the same, right sided L4-5 lumbar decompression Time Spent With Patient Time: Total time managing care of this patient today __25_ minutes.
[2023-10-07 09:01] LABS: Glucose, Whole Blood 127 mg/dL (60-115)
--- NOTE | 2023-10-07 10:20 | W.PM.OPN ---
Operative Note Operative Note Date of Service: 10/07/23 Narrative: Preoperative diagnosis: Right L5 lumbar radiculopathy due to disc herniation Postoperative diagnosis: Same Procedure: L4-5 lumbar microdiskectomy with microscope Surgeon: John Baird MD, PhD Information Assurance Manager: LIZBETH Ayala This 73-year-old male suffering from severe lumbar radiculopathy due to a disc extrusion compressing the right L5 nerve root and extension intraforaminal possibly influencing the L4 nerve root.. The patient was offered a lumbar microdiskectomy to decompress the nerve root. The procedure complications were explained. The patient was consented. The patient was brought to the operating room and endotracheally intubated. The patient was turned in a prone position on the Thomas frame. Prepping and draping was done followed by time-out. A mid lumbar incision was made followed by release of the paravertebral muscles on the right side to expose the L4-5 interspace. An intraoperative x-rays obtained to confirm the correct level. The microscope was brought in. A L4 laminotomy was done followed by opening of the flavum ligament. The L5 nerve root was identified and retracted medially to expose the L4-5 disc space. I could palpate a disc herniation medial and lateral from the L5 nerve root, extending intraforaminal. An annulotomy was done after which with the nerve hook I was able to express disc herniation. A curved pituitary was taken to remove the intraforaminal component. Then disc material was removed from under the L5 nerve root , which led to a good decompression of the L5 nerve root. The disc space was inspected and any residual disc fragments were removed. Hemostasis was done. The microscope was removed. Marcaine was injected intramuscularly.The incision was closed in two layers. Steri-Strips used to approximate seizure. An op-site were taken there was used to cover the incision. All sponge and needle counts were correct. Patient was extubated and transported in stable condition to recovery room. this procedure was done with the aid of a physician community relations assistant who performed the initial exposure until the microscope was brought in and performed the closure of the incision. Anesthesia: General Blood loss: 10 mL Complications: None Specimen: None Surgical time: 45 minutes Disposition: Discharge home
--- NOTE | 2023-10-07 10:31 | P.DS_ITS ---
DS: Providers Provider Date of Service: 10/07/23 Primary care physician: Arelis Severino MD DS: Summary Time Attestation Discharge Coordination Time (in mins): 15 Quality: Safe Use of Opioids Does Pt have an Active Cancer Diagnosis on the Problem List?: No Quality: Stroke Does the patient have a stroke diagnosis?: No Physical Exam Vital Signs: Vital Signs: Last Vital Signs Temp 98.2 F 10/07/23 08:04 Pulse 106 H 10/07/23 08:15 Resp 18 10/07/23 08:15 BP 174/113 H 10/07/23 08:04 Pulse Ox 92 10/07/23 08:04 O2 Del Method Room Air 10/07/23 08:04 BMI result Body Mass Index 24.5 DS: Data Data Completed and Pending Labs on day of discharge: Laboratory Results - last 24 hr 10/07/23 08:57 POC Glucose 127 H Discharge Plan Discharge Patient Disposition: Home, Self-Care Referrals: Arelis Severino MD [Primary Care Provider] - 1 Week Discharge Medications: New oxycodone 5 mg tablet 5 mg PO Q6H PRN (Reason: severe pain (scale score 7-10)) Qty: 30 0RF Rx Instructions: Partial Fill upon patient request. Continued cyclobenzaprine 10 mg tablet 10 mg PO TID PRN (Reason: muscle spasm) Qty: 30 0RF lidocaine [Lidoderm] 5 % adhesive patch,medicated 1 patch topical DAILY MDD remove after 12 hours PRN (Reason: pain) Qty: 30 0RF Rx Instructions: leave on most painful area for up to 12 hrs Tums PO PRN (Reason: Acid Reflux) albuterol sulfate 2.5 mg /3 mL (0.083 %) solution for nebulization 2.5 mg inhalation BID PRN (Reason: Shortness Of Breath Or Wheezing) albuterol sulfate 90 mcg/actuation HFA aerosol inhaler 2 puff INHALATION QID PRN (Reason: asthma) Januvia 50 mg tablet 50 mg PO DAILY Trelegy Ellipta 200-62.5-25 mcg blister with device 1 ea INHALATION DAILY tamsulosin 0.4 mg capsule 0.4 mg PO DAILY terazosin 10 mg capsule 10 mg PO BEDTIME 90 Days Qty: 90 1RF tadalafil 20 mg tablet 20 mg PO ONCE PRN (Reason: sexual activity) 30 Days Qty: 30 0RF Rx Instructions: On demand medication take 60 minutes before intended activity lisinopril-hydrochlorothiazide 20-25 mg tablet 1 tab PO DAILY pravastatin 80 mg tablet 80 mg PO DAILY finasteride 5 mg tablet 5 mg PO DAILY cyclobenzaprine 10 mg tablet 10 mg PO TID PRN (Reason: muscle spasm) Qty: 30 0RF Held oxycodone 5 mg capsule 5 mg PO Q8H PRN (Reason: pain, severe) Qty: 20 0RF Hold Instructions: Resume on 11/07/23. After postoperative medication is complete Rx Instructions: Partial Fill upon patient request. Discharge Orders: Discharge Order (Routine); Ordered 10/07/23 Ordered By: Bowen Hernandez Diet: Advance to usual diet Activity on Discharge: As tolerated Activity Restrictions/Additional Instructions: After your spinal surgery we ask you to observe the following restrictions/guidelines: Activity: It is normal to feel some discomfort as you increase your activity, but that will improve with time. We ask you avoid heavy lifting or acitivities that cause pain. As a general rule, 8lbs is a safe limit for lifting right after surgery. Walk as much as you feel comfortable but not to exhaustion. You will feel extra tired the first few days after surgery. Stay well hydrated. It is OK to walk up and down stairs You may return to driving when you are off narcotics (such as vicodin, oxycodone, dilaudid, etc), and you are back to normal functional capacity. If you have any concerns please check with office before driving. Return to work is specific to each patient and each surgery, so please speak with your doctor/PA at first follow up. Please bring paperwork such as FMLA at that time if you need it filled out. Medications: We will give you a short supply of narcotics after surgery (usually one weeks worth). If you need more please call the office but do not use more than prescribed. You will need to give our office 48 hours notice if you need narcotics refilled and we do not fill narcotics on weekends or evenings. If you are on a narcotic, it is a good idea to take a stool softener such as colace or senna to avoid constipation If you take blood thinner such as aspirin, Plavix, Coumadin, Effient, Eliquis etc for conditions such as Afib, DVT, Pulmonary embolus, coronary disease, stents etc please speak with your surgeon about specific details as to when you can resume these medications. You can resume NSAIDs on post op day 1 (eg: Motrin, Naproxen, etc). Follow up: Please call the office, , after surgery to arrange a 3 week follow up for wound check. Wound Care: You may remove your dressing on the first day after surgery. ?You may ?leave open to air. Please do not remove the steri strips underneath. they will fall off on their own in one week. IT IS NORMAL FOR THE WOUND TO OOZE OR BE BLOODY FOR A FEW DAYS AFTER SURGERY. ?IF THIS HAPPENS JUST PLACE NEW DRESSING OVER IT TO AVOID STAINING CLOTHES. You may shower on post op day # 1 We ask that you do not let the water soak the wound. If it does get wet, just towel dry lightly. Please do not scrub your incision or place any type of chemical/ointment on the wound. No tub baths, pools or jacuzzis for one month. If you have any leaking or redness from your wound, or fevers, please call the office. Print Language: Occitan
== END 2023-10-07 13:00 | disposition home or self-care (01) ==
PROVIDERS: PCP Internal Medicine; Visit Provider Neurological Surgery
PROC: (CPT 63030; principal; 2023-10-07 09:40)
DX: M51.16 Intervertebral disc disorders with radiculopathy, lumbar region (principal); J44.9 Chronic obstructive pulmonary disease, unspecified; N18.9 Chronic kidney disease, unspecified; I12.9 Hypertensive chronic kidney disease with stage 1 through stage 4 chronic kidney disease, or unspecified chronic kidney disease; E11.22 Type 2 diabetes mellitus with diabetic chronic kidney disease; Z99.3 Dependence on wheelchair; Z85.118 Personal history of other malignant neoplasm of bronchus and lung; Z90.2 Acquired absence of lung [part of]; Z79.51 Long term (current) use of inhaled steroids; Z79.84 Long term (current) use of oral hypoglycemic drugs; Z79.899 Other long term (current) drug therapy; Z88.2 Allergy status to sulfonamides; F17.210 Nicotine dependence, cigarettes, uncomplicated
CPT/HCPCS: 63030; 82947; 94640; J0131; J0690; J1100; J1885; J2371; J2405; J2598; J2704; J3010

== ENCOUNTER → 2023-10-07 07:12 | Outpatient (BNV) | payer MEDICARE, MEDICAID, SELFPAY | PROVIDERS: PCP Internal Medicine; Visit Provider Neurological Surgery | DX: M51.26 Other intervertebral disc displacement, lumbar region (principal) | CPT/HCPCS: 63030; 99499 ==

== ENCOUNTER 2023-10-26 14:26 | Outpatient (AMB) | payer MEDICARE, MEDICAID, SELFPAY ==
--- NOTE | 2023-10-26 14:31 | HO.SPINEOV ---
Intake Visit Reasons: 1st post op Intake Note: Mr. Brooks is here today for 1st post op visit. Rod Piler Required: No Allergies Sulfa (Sulfonamide Antibiotics) Allergy (Severe, Verified 10/26/23 14:31) Fever sulfamethoxazole [From BACTRIM] Allergy (Severe, Verified 10/26/23 14:31) FEVER trimethoprim [From BACTRIM] Allergy (Severe, Verified 10/26/23 14:31) FEVER Assessment & Plan Assessment & Plan (1) S/P lumbar microdiscectomy: Code(s): Z98.890 - Other specified postprocedural states Category: Surgical Plan Procedure: Right L4-5 lumbar microdiskectomy Arnoldo is a pleasant 73 year old male who comes in today for his 1st postoperative visit. He reports that most of his right-sided leg pain has subsided. He is very satisfied with the surgery and feels much better than he did prior to surgery. Today, he reports some longstanding feeling of weakness in his right leg and some numbness in his right great toe. Thankfully the shooting radiculopathy is gone for the most part. He has been able to complete all of his ADLs and is up walking around without issue. We discussed the postoperative healing course, and he was encouraged to continue walking daily outside. No new neurological deficits. The patient ambulates well and rises from a seated position without difficulty. His posterior incision site is well approximated with no signs of drainage. I would like to follow up again with Arnoldo in 6 weeks to continue monitoring his progress for his 2nd postoperative visit. Bowen Baird MD,PhD [facility] Coding Level of Care Code Global (60007) Diagnoses S/P lumbar microdiscectomy Z98.890
== END 2023-10-26 14:59 | disposition home or self-care (01) ==
PROVIDERS: PCP Internal Medicine; Visit Provider Physician Assistant
DX: Z98.890 Other specified postprocedural states (principal)
CPT/HCPCS: 99024

== ENCOUNTER → 2023-10-26 14:26 | Outpatient (BNVA) | payer MEDICARE, MEDICAID, SELFPAY | PROVIDERS: PCP Internal Medicine; Visit Provider Physician Assistant | DX: Z98.890 Other specified postprocedural states (principal) | CPT/HCPCS: 99212 ==

== ENCOUNTER 2023-10-29 07:09 | Emergency (ER) | payer MEDICARE, OTHER, SELFPAY ==
--- NOTE | ~2023-10-29 | XR_ITS ---
EXAMINATION: XR CHEST CLINICAL INFORMATION: Lower extremity edema COMPARISON: 01/15/2018 TECHNIQUE: Frontal view of the chest was obtained. FINDINGS: Lungs are hyperinflated without evidence of infiltrates nodules or vascular congestion. Cardiomediastinal silhouette is normal. XR/XR chest 1V IMPRESSION: Emphysematous changes. No evidence of CHF.
--- NOTE | ~2023-10-29 | US_ITS ---
EXAMINATION: US VENOUS ULTRASOUND WITH DOPPLER LOWER EXTREMITY, RIGHT CLINICAL INFORMATION: Right lower extremity swelling COMPARISON: None available. TECHNIQUE: Ultrasound of the deep veins is performed from the hip to the calf with compression sonography and color and pulse Doppler assessment. Spectral analysis with color-flow imaging is performed. FINDINGS: The common femoral vein is compressible and exhibits a normal phasic waveform; this suggests that the iliac veins are widely patent above. Within the proximal thigh, the visualized profunda femoris vein is normal. The examined greater saphenous vein and saphenofemoral junction are normal. Superficial femoral vein is patent in the proximal, mid and distal thigh. Popliteal vein is normal to the level of the trifurcation. On compression arreola scale and color Doppler images, the visualized posterior tibial and peroneal veins of the calf are patent. No evidence of Flor's cyst. US/US venous duplex LE RT IMPRESSION: No evidence of deep vein thrombosis in the right lower extremity.
[2023-10-29 07:20] VITALS: BP 160/82; PULSE 110; RESP 20; TEMP 36.6; O2SAT 93; BMI 26.6
--- NOTE | 2023-10-29 07:27 | ECG_ITS ---
Test Reason : R LOWER EXTR PAIN Blood Pressure : / mmHG Vent. Rate : 092 BPM Atrial Rate : 092 BPM P-R Int : 118 ms QRS Dur : 084 ms QT Int : 330 ms P-R-T Axes : 065 059 082 degrees QTc Int : 408 ms Normal sinus rhythm Normal ECG No previous ECGs available Referred By: Kristi Silva Electronically Signed By:PEDRO PABLO GERMAN
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
[2023-10-29 08:00] VITALS: BP 160/82; PULSE 110; RESP 20; TEMP 36.6; O2SAT 93
[2023-10-29 08:17] LABS: MANUAL DIFF FLAG NO
[2023-10-29 08:20] LABS: Basophils Absolute Auto 0.1 X10*3/uL (0.0-0.2); Basophils Percent Auto 0.6 % (0-2); Eosinophils Absolute Auto 0.5 X10*3/uL (0.0-0.4); Eosinophils Percent Auto 5.5 % (0-4); Hematocrit 42.7 % (42.0-52.0); Hemoglobin 14.1 g/dl (14.0-18.0); Imm Gran Abs Auto 0.03 X10*3/uL (0.00-0.03); Imm Gran Pct Auto 0.4 % (0.0-0.4); Lymphocytes Absolute Auto 1.3 X10*3/uL (1.2-4.9); Lymphocytes Percent Auto 16.2 % (20-40); Mean Corpuscular Hemoglobin 30.1 pg (27.0-33.0); Mean Platelet Volume 9.2 fL (9.4-12.4); Monocytes Absolute Auto 0.7 X10*3/uL (0.1-1.2); Monocytes Percent Auto 8.6 % (2-11); Neutrophils Absolute Auto 5.7 x10*3/uL (2.0-8.3); Neutrophils Percent Auto 68.7 % (45-73); Platelet Count 219 X10*3/uL (160-400); Red Blood Count 4.69 X10*6/uL (4.60-5.80); Red Cell Distribution Width 14.6 % (11.0-16.0); White Blood Count 8.3 X10*3/uL (4.8-10.8)
[2023-10-29 08:27] LABS: D Dimer High Sensitivity 335 NG/ML
[2023-10-29 08:36] LABS: Alanine Aminotransferase 9 U/L (0-40); Alkaline Phosphatase 84 U/L (39-117); Anion Gap 16 (12-20); Aspartate Amino Transferase 12 U/L (5-37); Bilirubin Direct 0.1 mg/dL (0.0-0.5); Bilirubin Total 0.4 mg/dL (0.0-1.0); Blood Urea Nitrogen 18 mg/dL (9-16); Calcium 9.2 mg/dL (8.4-10.2); Carbon Dioxide 22 mmol/L (22-29); Chloride 108 mmol/L (96-108); Creatinine Clr Calc Pharmacy 34.7; Estimated Glomerular Filt Rate 39; Glucose Random 142 mg/dL (60-115); Lipase 21 U/L (8-78); Sodium 142 mmol/L (135-145); Total Protein 6.8 g/dL (6.5-8.0)
[2023-10-29 08:39] LABS: B Type Natriuretic Peptide 34 pg/mL (<100)
[2023-10-29 08:42] LABS: Troponin-I High Sensitivity 2.9 ng/L (<3.5-35.0)
[2023-10-29 08:58] LABS: Influenza A PCR NEGATIVE (Negative); Influenza B PCR NEGATIVE (Negative); Resp Syncy Virus RNA Qual PCR NEGATIVE (Negative); SARS COV2 PCR INHOUSE NEGATIVE (Negative)
[2023-10-29 09:51] VITALS: BP 144/77; PULSE 95; RESP 16; TEMP 36.7; O2SAT 94
[2023-10-29 10:02] LABS: Appearance Urine Clear; Color Urine Yellow; Glucose Urine UA Negative (Negative); Leukocyte Esterase Urine Trace (Negative); Nitrite Urine Negative (Negative); PH 7.5 (5.0-9.0); Specific Gravity - Urine 1.015 (1.005-1.025); UMIC TRIGGER UACC YES; Urine Blood Negative (Negative); Urine Ketones Negative (Negative); Urine Protein Negative (Neg-Trace)
[2023-10-29 10:04] LABS: Bacteria Urine None Seen (None Seen); Hyaline Casts Urine 0-2 /LPF (0-2); RBC Urine 0-2 /HPF (0-2); Squamous Epithelial Cell Urine 0-2 /HPF (0-2); WBC Urine 0-5 /HPF (0-5)
[2023-10-29 13:07] VITALS: BP 144/77; PULSE 95; RESP 16; TEMP 36.7; O2SAT 94
== END 2023-10-29 13:08 | disposition home or self-care (01) ==
PROVIDERS: Emergency Provider Emergency Medicine; PCP Internal Medicine
DX: R60.0 Localized edema (principal); R20.0 Anesthesia of skin; R06.02 Shortness of breath; Z79.899 Other long term (current) drug therapy; Z03.818 Encounter for observation for suspected exposure to other biological agents ruled out
CPT/HCPCS: 0241U; 36415; 71045; 80048; 80076; 81001; 81003; 83690; 83880; 84484; 85025; 85379; 93005; 93971; 99284

== ENCOUNTER → 2023-10-29 07:27 | Outpatient (BNV) | payer MEDICARE, MEDICAID, SELFPAY | PROVIDERS: Emergency Provider Emergency Medicine; PCP Internal Medicine; Visit Provider Internal Medicine | DX: R22.41 Localized swelling, mass and lump, right lower limb (principal); M79.604 Pain in right leg | CPT/HCPCS: 93010 ==

== ENCOUNTER 2023-12-08 06:17 | Outpatient (REF) | payer MEDICARE, MEDICAID, SELFPAY ==
[2023-12-08 10:07] LABS: MANUAL DIFF FLAG NO
[2023-12-08 10:14] LABS: Basophils Absolute Auto 0.1 X10*3/uL (0.0-0.2); Basophils Percent Auto 0.6 % (0-2); Eosinophils Absolute Auto 0.4 X10*3/uL (0.0-0.4); Eosinophils Percent Auto 3.8 % (0-4); Hematocrit 43.4 % (42.0-52.0); Hemoglobin 13.8 g/dl (14.0-18.0); Imm Gran Abs Auto 0.03 X10*3/uL (0.00-0.03); Imm Gran Pct Auto 0.3 % (0.0-0.4); Mean Corpuscular HGB Conc 31.8 g/dl (31.0-36.0); Mean Corpuscular Hemoglobin 29.8 pg (27.0-33.0); Mean Corpuscular Volume 93.7 fL (80.0-98.0); Mean Platelet Volume 10.6 fL (9.4-12.4); Monocytes Percent Auto 10.5 % (2-11); Neutrophils Absolute Auto 6.1 x10*3/uL (2.0-8.3); Neutrophils Percent Auto 63.8 % (45-73); Platelet Count 204 X10*3/uL (160-400); Red Blood Count 4.63 X10*6/uL (4.60-5.80); Red Cell Distribution Width 14.6 % (11.0-16.0); White Blood Count 9.6 X10*3/uL (4.8-10.8)
[2023-12-08 10:28] LABS: Estimated Average Glucose 134 mg/dL; Hemoglobin A1c % 6.3 % (<6.0)
[2023-12-08 10:31] LABS: Alanine Aminotransferase 10 U/L (0-40); Alkaline Phosphatase 80 U/L (39-117); Anion Gap 13 (12-20); Aspartate Amino Transferase 14 U/L (5-37); Bilirubin Total 0.3 mg/dL (0.0-1.0); Blood Urea Nitrogen 28 mg/dL (9-16); Calcium 9.4 mg/dL (8.4-10.2); Carbon Dioxide 25 mmol/L (22-29); Chloride 108 mmol/L (96-108); Cholesterol 162 mg/dL (<200); Estimated Glomerular Filt Rate 35; Glucose Random 131 mg/dL (60-115); HDL Cholesterol 30 mg/dL (>40); LDL Cholesterol Calculated 57 mg/dL (<100); Potassium 4.4 mmol/L (3.3-5.1); Sodium 142 mmol/L (135-145); Total Protein 6.8 g/dL (6.5-8.0); Triglycerides 377 mg/dL (<150)
[2023-12-08 11:08] LABS: Creatinine Urine 131.06 mg/dL; Microalbum/Creatinine Ratio Ur 12.9 ug/mg cr (<30)
== END 2023-12-08 06:18 | disposition home or self-care (01) ==
LOC: HO.HMGCLDS 06:17
PROVIDERS: PCP Internal Medicine; Visit Provider Internal Medicine
DX: E11.9 Type 2 diabetes mellitus without complications (principal); I12.0 Hypertensive chronic kidney disease with stage 5 chronic kidney disease or end stage renal disease; M51.16 Intervertebral disc disorders with radiculopathy, lumbar region; Z72.0 Tobacco use
CPT/HCPCS: 36415; 80053; 80061; 82043; 82570; 83036; 85025

== ENCOUNTER 2023-12-10 08:57 | Outpatient (AMB) | payer MEDICARE, MEDICAID, SELFPAY ==
--- NOTE | 2023-12-10 09:02 | HO.SPINEOV ---
Intake Visit Reasons: 2nd post op Intake Note: Mr. Brooks is here today for his 2nd post-op visit. Power System Dispatcher Required: No Allergies Sulfa (Sulfonamide Antibiotics) Allergy (Severe, Verified 12/10/23 09:05) Fever sulfamethoxazole [From BACTRIM] Allergy (Severe, Verified 12/10/23 09:05) FEVER trimethoprim [From BACTRIM] Allergy (Severe, Verified 12/10/23 09:05) FEVER Assessment & Plan Assessment & Plan (1) S/P lumbar microdiscectomy: Code(s): Z98.890 - Other specified postprocedural states Category: Surgical Plan Procedure: Right L4-5 lumbar microdiskectomy Arnoldo is a pleasant 73 year old male who comes in today for his 2nd postoperative visit. He continues to report resolution of his right-sided lumbar radiculopathy. Unfortunately he still has the similar numbness to that reported in his previous postop note. We discussed how this may be result of permanent nerve damage from his disc herniation. He inquired about physical therapy which I feel is appropriate at this point to help increase his mobility and functionality. He reports his biggest difficulties are with ambulation and initial engagement of his right thigh (iliopsoas). He did inquire about returning to the gym and beginning weightlifting again. I encouraged him not to lift more than 10-12 lb at a time until he is at least more than 3 months postoperative, as this is when the bulk of disc herniations recur. No new neurological deficits. The patient ambulates well and rises from a seated position without difficulty. His posterior incision site is full healed. I placed a referral for Arnoldo who attempted physical therapy in the hopes that this will help him with both mobility and strength. Bowen Baird MD,PhD [facility] Orders: Orders PT Evaluation and Treatment Today Z98.890 - Other specified postprocedural states Coding Level of Care Code Global (85988) Diagnoses S/P lumbar microdiscectomy Z98.890
== END 2023-12-10 09:14 | disposition home or self-care (01) ==
PROVIDERS: PCP Internal Medicine; Visit Provider Physician Assistant
DX: Z98.890 Other specified postprocedural states (principal)
CPT/HCPCS: 99024

== ENCOUNTER → 2023-12-10 08:57 | Outpatient (BNVA) | payer MEDICARE, MEDICAID, SELFPAY | PROVIDERS: PCP Internal Medicine; Visit Provider Physician Assistant | DX: Z47.89 Encounter for other orthopedic aftercare (principal); Z98.890 Other specified postprocedural states | CPT/HCPCS: 99212 ==

== ENCOUNTER → 2024-01-04 08:10 | Outpatient (BNV) | payer MEDICARE, MEDICAID, SELFPAY | PROVIDERS: PCP Internal Medicine; Visit Provider Radiology Diagnostic Radiology | DX: C64.9 Malignant neoplasm of unspecified kidney, except renal pelvis (principal) | CPT/HCPCS: 74183 ==

== ENCOUNTER 2024-01-04 08:29 | Outpatient (REF) | payer MEDICARE, OTHER, SELFPAY ==
--- NOTE | ~2024-01-04 | MR_ITS ---
EXAMINATION: MR ABDOMEN WITHOUT AND WITH CONTRAST CLINICAL INFORMATION: Malignant neoplasm of unspecified kidney. COMPARISON: MRI dated March 18, 2023. TECHNIQUE: MR abdomen was performed without and with use of 7.5 mL intravenous Gadavist gadolinium contrast without reported immediate complications. Postcontrast images are performed in multiphase dynamic sequences. Imaging was performed in 3 planes. FINDINGS: LUNG BASES: Submitted for interpretation on February 05, 2024. LIVER, GALLBLADDER, AND BILIARY TREE: Liver measures 16 cm. No enhancing mass. Portal vein and hepatic veins are patent. Intrahepatic portion of the IVC is patent. No gross intrahepatic biliary ductal dilatation. Gallbladder is contracted. No pericholecystic fluid collection or gallbladder wall thickening. Common bile duct measures 4 mm. PANCREAS: No focal pancreatic mass. No peripancreatic fluid collection. No main pancreatic ductal dilatation. SPLEEN: Measures 8 cm. No focal mass. ADRENAL GLANDS: No nodular lesions. KIDNEYS AND URETERS: Left kidney: There is a 3.2 cm thin capsulated and septated nonenhancing mixed signal exophytic lesion in the lateral upper pole/midportion junction with old blood products components. No hydronephrosis. Renal cortical defect in the lateral midportion. Small cystic lesions in the lower pole. Right kidney: No enhancing renal mass. Multifocal different sizes fluid signal characteristic lesions, the largest measures 7.6 cm. No hydronephrosis. GASTROINTESTINAL TRACT: No intestinal obstruction pattern. No ascites. ABDOMINAL WALL: No gross hernia. LYMPH NODES: No lymphadenopathy, retroperitoneal. VASCULAR: Plaques throughout the infrarenal abdominal aorta demonstrated segmental narrowing. No aneurysm or dissection, abdominal aorta. OSSEOUS STRUCTURES: No fully evaluated. MR/MR kidney wo/w con IMPRESSION: Post treatment changes at the exophytic lesion/mass without gross enhancement, left kidney. No retroperitoneal lymphadenopathy. Bosniak type I cysts, bilaterally. Electronically signed by: Joseph Durbin MD 02/05/2024 01:55 PM EDT
[2024-01-04] MEDS: gadobutroL 7.5 ML VIAL IVPUSH (09:18)
== END 2024-01-04 08:30 | disposition home or self-care (01) ==
LOC: HO.MRI 08:29
PROVIDERS: PCP Internal Medicine; Visit Provider Urology
DX: C64.9 Malignant neoplasm of unspecified kidney, except renal pelvis (principal)
CPT/HCPCS: 74183; A9585

== ENCOUNTER 2024-01-04 10:21 | Outpatient (REF) | payer MEDICARE, MEDICAID, SELFPAY ==
[2024-01-04 13:54] LABS: Blood Urea Nitrogen 30 mg/dL (9-16); Estimated Glomerular Filt Rate 33
== END 2024-01-04 10:22 | disposition home or self-care (01) ==
LOC: HO.HMGCLDS 10:21
PROVIDERS: PCP Internal Medicine; Visit Provider Urology
DX: C64.9 Malignant neoplasm of unspecified kidney, except renal pelvis (principal)
CPT/HCPCS: 36415; 82565; 84520

== ENCOUNTER 2024-01-07 08:53 | Outpatient (AMB) | payer MEDICARE, MEDICAID, SELFPAY ==
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
== END 2024-01-07 09:19 | disposition home or self-care (01) ==
LOC: HO.HUSH 08:53
PROVIDERS: PCP Internal Medicine; Visit Provider Urology
DX: C64.9 Malignant neoplasm of unspecified kidney, except renal pelvis (principal); N40.0 Benign prostatic hyperplasia without lower urinary tract symptoms
CPT/HCPCS: 99213

== ENCOUNTER → 2024-01-07 08:53 | Outpatient (BNVA) | payer MEDICARE, MEDICAID, SELFPAY | PROVIDERS: PCP Internal Medicine; Visit Provider Urology ==

== ENCOUNTER 2024-05-03 06:19 | Day surgery (SDC) | payer MEDICARE, MEDICAID, SELFPAY ==
--- OUTSIDE RECORDS SUMMARY | 2024-03-21 12:04 | XMS_ITS ---
Author Organization [facility] Address [address] [place] [address] Care Team Providers Care Concrete Form Setter And Finisher Name Role Phone Arelis Severino Primary Care Provider Unavailab Carlitos Sweeney Jr Unavailable ALLERGIES Allergen (clinical drug ingredient) Drug/Non Drug Allergy documented on EMR Reaction Allergy Type Onset Date Status sulfamethoxazole / trimethoprim Bactrim Unknown Drug Allergy Active REASON FOR VISIT Patient presents today for a COLON SCREENING MEDICATIONS Medication SIG (Take, Route, Frequency, Duration) Notes Start Date End Date Status Finasteride 5 MG TAKE 1 TABLET BY CHAN TH EVERY DAY Oral for 90 Active Januvia 50 MG TAKE 1 TABLET BY CHAN TH DAILY Oral for 90 Active Trelegy Ellipta 200-62.5-25 MCG/ACT INHALE 1 PUFF BY MOUTH DAILY Inhalation for 90 Active oxyCODONE HCl 5 MG TAKE 1 TABLET BY CHAN TH EVERY 6 HOURS NEEDED FOR PAIN Oral for 7 Active MiraLax (colon prep) 17 GM/SCOOP mixed with Gatorade or Crystal Light Orally begin at 5:00 p.m. the day before the procedure for 1 day 03/21/2024 Active Tamsulosin HCl 0.4 MG TAKE 1 CAPSULE BY MOUTH EVERY NIGHT AT BEDTIME Oral for 90 Active Anusol-HC 25 MG 1 suppository Rectal at night/prn 12/03/2017 Active Famotidine 40 MG 1 tablet at bedtime Orally Once a day Active Lisinopril-hydroCHLOROthia zide 20-12.5 MG 1 tablet Orally Once a day for 30 day(s) Active Pravastatin Sodium 40 MG 1 tablet Orally Once a day Active IMMUNIZATIONS Vaccine Route Administration Date Status Comme nts Influenza Unknown 03/21/2024 Refused SOCIAL HISTORY Tobacco Use: Social History Observation Description Date Details (start date - stop date) Current Smoker NA - NA Sex Assigned At : Social History Observation Description Sex Assigned At Unknown Tobacco Use/Smoking Question Answer Notes Patient is a current smoker PROBLEMS Problem Type ICD Code Onset Dates Problem Status W/U Status Risk SNOMED Code Notes Problem Colon cancer screening (Z12.11) Active confirmed 081001987 VITAL SIGNS BMI 26.29 kg/m2 03/21/2024 Blood pressure systolic 000 mm Hg 03/21/20 24 Blood pressure diastolic 00 mm Hg 024 Height 68.50 in 03/21/2024 Temperature 98.0 degrees Fahrenheit 03/21/20 24 Weight 175 lb 8 oz lbs 03/21/2024 Encounters Encounter Location Date Provider Diagnosis [facility] [address] [place] [address] 03/21/2024 Carlitos Enriquez Jr Colon cancer screening Z12.11 ASSESSMENTS Encounter Date Diagnosis Assessment Notes Treatment Notes Treatment Clinical Notes 03/21/2024 Colon cancer screening (ICD-10 - Z12.11) Colonoscopy material was printed PLAN OF TREATMENT Medication Medication Name Sig Start Date Stop Date Notes MiraLax (colon prep) 17 GM/SCOOP mixed with Gatorade or Crystal Light Orally begin at 5:00 p.m. the day before the procedure for 1 day 03/21/2024 Treatment Notes Assessment Notes Colon cancer screening Colonoscopy mater ial was printed Future Test Test Name Order Date COLONOSCOPY 03/21/2024 Next Appt Details Provider Name:Carlitos stout Jr, 05/03/2024 07:30:00 AM, [address] [place] [address] , [place], [place], [id number],
--- OUTSIDE RECORDS SUMMARY | 2024-03-21 12:04 | XMS_ITS | Patient Health Record ---
Author Organization [facility] Address [address] [place] [address] Care Team Providers Care Basin Cleaner Name Role Phone Arelis Rodríguez Primary Care Provider Unavailab Carlitos Sweeney Jr Unavailable [phone] ALLERGIES Allergen (clinical drug ingredient) Drug/Non Drug Allergy documented on EMR Reaction Allergy Type Onset Date Status sulfamethoxazole / trimethoprim Bactrim Unknown Drug Allergy Active REASON FOR REFERRAL Referring Provider First Name Arelis Referring Provider Last Name Mere Referring Provider Speciality Internal M edicine Referred Organization [facility] Referred Provider Carlitos Enriquez Jr Referred Address [address],[place], [place],[address], Referred Provider Specialty Gastroentero logy General Notes Cecy DEAN Daw n 02/09/2024 10:20:41 AM >REQUESTED A [facility] REFERRAL FROM DR RODRÍGUEZ'S OFFICE FOR VISIT ON 03-21-2024 (SAID February) Referral Priority Routine MEDICATIONS Medication SIG (Take, Route, Frequency, Duration) Notes Start Date End Date Status Finasteride 5 MG TAKE 1 TABLET BY CHAN TH EVERY DAY Oral for 90 Active Tamsulosin HCl 0.4 MG TAKE 1 CAPSULE BY MOUTH EVERY NIGHT AT BEDTIME Oral for 90 Active Januvia 50 MG TAKE 1 TABLET BY CHAN TH DAILY Oral for 90 Active Trelegy Ellipta 200-62.5-25 MCG/ACT INHALE 1 PUFF BY MOUTH DAILY Inhalation for 90 Active Anusol-HC 25 MG 1 suppository Rectal at night/prn 12/03/2017 Active Famotidine 40 MG 1 tablet at bedtime Orally Once a day Active Lisinopril-hydroCHLOROthia zide 20-12.5 MG 1 tablet Orally Once a day for 30 day(s) Active oxyCODONE HCl 5 MG TAKE 1 TABLET BY CHAN TH EVERY 6 HOURS NEEDED FOR PAIN Oral for 7 Active MiraLax (colon prep) 17 GM/SCOOP mixed with Gatorade or Crystal Light Orally begin at 5:00 p.m. the day before the procedure for 1 day 03/21/2024 Active Pravastatin Sodium 40 MG 1 tablet Orally Once a day Active IMMUNIZATIONS Vaccine Route Administration Date Status Comme nts Influenza Unknown 12/15/2017 Administered Influenza Unknown 03/21/2024 Refused SOCIAL HISTORY Tobacco [...] Problem Colon cancer screening (Z12.11) Active confirmed 205737401 Problem Rectal bleeding (K62.5) Active confirmed 36843848 VITAL SIGNS Temperature 98.0 degrees Fahrenheit 03/21/2024 Blood pressure diastolic 00 mm Hg 03/21/2024 Height 68.50 in 03/21/2024 Blood pressure systolic 000 mm Hg 03/21/2024 Weight 175 lb 8 oz lbs 03/21/2024 BMI 26.29 kg/m2 03/21/2024 Encounters Encounter Location Date Provider Diagnosis [facility] [address] [place] [address] 03/21/2024 Carlitos Enriquez Jr Colon cancer screening Z12.11 ASSESSMENTS Encounter Date Diagnosis Assessment Notes Treatment Notes Treatment Clinical Notes 03/21/2024 Colon cancer screening (ICD-10 - Z12.11) Colonoscopy material was printed PLAN OF TREATMENT Future Test Test Name Order Date COLONOSCOPY 09/16/2012 COLONOSCOPY 05/05/2018 COLONOSCOPY 03/21/2024 Next Appt Details Provider Name:Carlitos stout Jr, 05/03/2024 07:30:00 AM, [address] [facility] , [place], [place], [phone], Insurance Providers Payer Name Payer Address Payer Phone Subscriber Number Group Number Insured Name Patient Relationship to Insured Coverage Start Date Coverage End Date [address] [address] [id number] TIM CASTRO Self - patient is the insured MEDICAID OF [facility] [address] [place] [phone] [id number] TIM CASTRO Self - patient is the insured MEDICAL (GENERAL) HISTORY Medical History History ICD Code Elevated cholesterol HTN gastroesophageal reflux disease lung cancer chronic kidney disease 3 anxiety non-small cell lung cancer, right upper lobe Surgical History Surgery Date(Month/Year) right upper lobectomy 12/2017 back surgery
[2024-04-29 14:01] VITALS: BMI 26.4
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
--- OUTSIDE RECORDS SUMMARY | 2024-05-03 06:21 | XMS_ITS | Clinical Summary ---
Author Organization [facility] [address] [facility] [address] Address [address] [place] [address] Phone Care Team Providers Care Timber Inspector Name Role Phone Arelis Severino MD Primary Care Provider [phone] Encounters Date Type Department Care Team Description 04/21/2024 Telephone Lung Screening Program - [address] [place] [address] Velia Salinas [place] Appointment from Last 3 Months Surgical History Surgery Date Site/Laterality Comments OTHER SURGICAL HISTORY 2017 Right PROCEDURE: [place] THORACOSCOPY W/LOBECTOMY SINGLE LOBE; COMMENT: RUL lobectomy OTHER SURGICAL HISTORY 2012 PROCEDURE: COLONOSCOPY, SURGICAL Medical History Medical History Date Comments Lung cancer (CMS/HCC) 2017 DX:Lung ca ncer (HCC); COMMENT: RUL lung cancer - surgical resection Anxiety disorder DX:Anxiety diso rder BPH (benign prostatic hyperplasia) DX:BPH (benign prostatic hyperplasia) CKD (chronic kidney disease) DX: CKD (chronic kidney disease) Diverticulosis DX:Diverticulosi s Emphysema lung (CMS/HCC) DX:Emph ysema lung (HCC) GERD (gastroesophageal reflux disease) DX:GERD (gastroesophageal reflux disease) Mixed hyperlipidemia DX:Mixed hy perlipidemia Essential (primary) hypertension DX:Essential (primary) hypertension IFG (impaired fasting glucose) D X:IFG (impaired fasting glucose) Large cell neuroendocrine ca rcinoma (CMS/HCC) 2017 DX:Large cell neuroendocrine carcinoma (HCC) Lumbar radiculopathy DX:Lumbar r adiculopathy Personal history of nicotine dependence DX:Personal history of nicotine dependence Tubular adenoma of colon 2012 DX:Tubu lar adenoma of colon Type 2 diabetes mellitus wit hout complications (CMS/HCC) DX:Type 2 diabetes mellitus without complications (HCC) COPD (chronic obstructive pu lmonary disease) (CMS/HCC) DX:COPD (chronic obstructive pulmonary disease) (HCC) Social History Tobacco Use Types Packs/Day Years Used Date Smoking Tobacco: Every Day Cigarettes 1 65.1 Started: 1959 Smokeless Tobacco: Never Alcohol Use Standard Drinks/Week Comments Not Currently 0 (1 standard drink = 0.6 oz pur e alcohol) Sex and Gender Information Value Date Recorded Sex Assigned at Not on file Gender Identity Not on file Sexual Orientation Not on file Job Start Date Occupation Industry Not on file Not on file Not on file Obstetrics History Last Filed Vital Signs Vital Sign Reading Time Taken Comments Blood Pressure 133/67 04/27/2023 9:53 AM EST Sitting R Arm Pulse 85 04/27/2023 9:53 AM EST Temperature - - Respiratory Rate - - Oxygen Saturation - - Inhaled Oxygen Concentration - - Weight 78.8 kg (173 lb 12.8 oz) 04/27/2023 9:53 AM EST Height 175.3 cm (5' 9 ) 04/27/2023 9:53 AM EST Body Mass Index 25.67 04/27/2023 9:53 AM EST Plan of Treatment Upcoming Encounters Date Type Department Care Team (Late st Contact Info) Description 05/09/2024 8:00 AM EST Appointment [facility] Scan [address] [place] [address] Health Maintenance Due Date Last Done Comments COVID-19 Vaccine (#1) 08/29/1955 Pneumococcal Vaccine: 65+ Ye ars (1 of 2 - PCV) 1956 DTaP,Tdap,and Td Vaccines (1 - Tdap) 1969 Zoster Vaccines (1 of 2) 2000 Abdominal Aortic Aneurysm (A AA) Screen 05/06/2023 Cholesterol Screening (Lipid Panel) 05/06/2023 Colorectal Cancer Screening: Colonoscopy 05/06/2023 Depression Screening 05/06/2023 Falls Risk Assessment 05/06/2023 Hepatitis C Screening 05/06/2023 Lung Cancer Screening (Low Dose CT) 05/06/2023 Social Influencers of Health Screening 05/06/2023 Influenza Vaccine (#1) 2023 RSV Immunization Patients 60 + Years Old (1 - 1-dose 75+ series) 2025 HIB Vaccines Aged Out No longer eligi ble based on patient's age to complete this topic HPV Vaccines Aged Out No longer eligi ble based on patient's age to complete this topic Hepatitis A Vaccines Aged Out No long er eligible based on patient's age to complete this topic Hepatitis B Vaccines Aged Out No long er eligible based on patient's age to complete this topic IPV Vaccines Aged Out No longer eligi ble based on patient's age to complete this topic MMR Vaccines Aged Out No longer eligi ble based on patient's age to complete this topic Meningococcal ACWY Vaccine Aged Out N o longer eligible based on patient's age to complete this topic RSV Immunization Patients Un wilfred 20 months Aged Out No longer eligible b ased on patient's age to complete this topic Varicella Vaccines Aged Out No longer eligible based on patient's age to complete this topic Care Teams Timber Inspector Relationship Specialty Start Date End Date Arelis Severino MD [address] [place] [address] [place] [address] PCP - General Internal Medicine 04/21/24
--- OUTSIDE RECORDS SUMMARY | 2024-05-03 06:21 | XMS_ITS | Clinical Summary ---
Author Organization [facility] Address [address] [place] [phone] Phone Care Team Providers Care Diving Board Assembler Name Role Phone Eddie Martins Primary Care Provider [phone] Allergies Active Allergy Reactions Criticality Noted Date Comments Sulfamethoxazole-Trimethoprim Other (see comments) 02/24/2020 Medications famotidine (PEPCID) 10 MG tablet Take 40 mg by mouth 1 (one) time each day Active pravastatin (PRAVACHOL) 40 MG tablet Take 80 mg by mouth 1 (one) time each day Active tamsulosin (FLOMAX) 0.4 MG 24 hr capsule Take 1 capsule by mouth 1 (one) time each day Active Januvia 50 MG tablet Take 50 mg by mouth 1 (one) time each day 10/18/2022 Active finasteride (PROSCAR) 5 MG tablet Take 5 mg by mouth 1 (one) time each day Do not crush, chew, or split. Active lisinopril-hydro CHLOROthiazide (PRINZIDE,ZESTOR ETIC) 20-25 MG per tablet Take 1 tablet by mouth 1 (one) time each day Active oxyCODONE (ROXICODONE) 5 MG immediate release tablet TAKE 1 TABLET BY MOUTH EVERY 6 HOURS NEEDED FOR PAIN Oral for 7 Active Dapagliflozin Propanediol 10 MG tablet Take 10 mg by mouth 1 (one) time each day in the morning 90 tablet 1 04/07/2024 04/07/19 26 Active Active Problems Problem Noted Date Diagnosed Date Localized swelling of right lower leg 10/27/2023 Renal mass 11/12/2022 Renal osteodystrophy 11/18/2021 Stage 3b chronic kidney disease 02/18/2021 Stage 3b chronic kidney disease 07/10/2020 Hypertensive chronic kidney disease 07/10/2020 Chronic kidney disease stage 3 06/25/2020 Essential hypertension 06/25/2020 Gastroesophageal reflux disease 06/25/2020 Hyperlipidemia 06/25/2020 Encounters Date Type Department Care Team Description 04/07/2024 4:30 PM EST Office Visit [facility] [address] [place] [address] Rudi Aquino MD Stage 3b chronic kidney disease (HCC) (Primary Dx); Renal osteodystrophy; Hypertensive chronic kidney disease from Last 3 Months Immunizations Name Administration Dates Next Due Influenza Split High Dose Preservative Free IM 1 04/19/2017 Influenza, MDCK, PF, Quadrivalent 12/28/2019 Pfizer SARS-COV-2 06/07/2020,05/17/2020 Pneumococcal Conjugate 13-Valent 12/28/2019 Pneumococcal Polysaccharide 02/17/2018 Shingrix 03/16/2020,12/28/2019 Tdap 06/17/2018 Family History Medical History Relation Comments Diabetes Father Cancer Sibling sisters Relation Status Comments Father Mother Sibling Social History Tobacco Use Types Packs/Day Years Used Date Smoking Tobacco: Former Alcohol Use Standard Drinks/Week Comments Yes 0 (1 standard drink = 0.6 oz pure alcohol) Alcoholic Drinks/day: Occasional social drink Sex and Gender Information Value Date Recorded Sex Assigned at Not on file Legal Sex Male 4:55 PM EST Gender Identity Not on file Sexual Orientation Not on file Last Filed Vital Signs Vital Sign Reading Time Taken Comments Blood Pressure 138/78 04/07/2024 3:55 PM EST Pulse 83 04/07/2024 3:55 PM EST Temperature - - Respiratory Rate - - Oxygen Saturation 95% 04/07/2024 3:55 PM EST Inhaled Oxygen Concentration - - Weight 76.2 kg (168 lb) 04/07/2024 3:55 PM EST Height 175.3 cm (5' 9 ) 04/11/2019 12:00 PM EST Body Mass Index 24.81 04/11/2019 12:00 PM EST Plan of Treatment Upcoming Encounters Date Type Department Care Team (Late st Contact Info) Description 08/01/2024 3:00 PM EDT Office Visit [facility] [address] [place] [address] Rudi Aquino MD [address] [facility] [address] [place] [address] Health Maintenance Due Date Last Done Comments Colorectal Cancer Screening: Annual FOBT 08/29/1999 Colorectal Cancer Screening: Colonoscopy 08/29/1999 Colorectal Cancer Screening: Sigmoidoscopy 08/29/1999 Influenza Vaccine (#1) 2023 0, 02/17/2018 Diabetes: Hemoglobin A1C 04/07/2024 12/30/2018 Diabetes: Ophthalmology Exam 04/07/2024 Diabetes: Pedal Pulse Checked 04/07/2024 Diabetes: Sensory Foot Exam 04/07/2024 Diabetes: Visual Foot Exam 04/07/2024 Pneumococcal Vaccine: 65+ Years Completed 12/28/2019, 02/17/2018 Hepatitis B Vaccine Aged Out No longe r eligible based on patient's age to complete this topic Procedures Procedure Name Priority Date/Time Associated Diagnosis Comments HEMOGLOBIN A1C Routine 12/30/2018 12:42 PM EDT from Last 3 Months or Most Recently Relevant to Health Maintenance Results * Hemoglobin A1c (12/30/2018 12:42 PM EDT) Hemoglobin A1C 6.4 % [place] Comment: ?Hemoglobin A1C Reference Range ? Adults: ??4.8 - 6.0 % ? Non diabetic: ??< 6.0 % ? Goal: ??< 7.0 % Additional Action Suggested: ??> 8.0 % Note: ??Hemoglobin A1c results are invalid for patients ? with abnormal amounts of HbF. ??Blood transfusions ? may impact the HbA1c concentration in the patient ? sample. Estimated Average Glucose 137 MG/DL [place] Comment: eAG = Estimated average glucose which is %A1C expressed as average glucose, using the formula of the O5D-Otuzbum Average Glucose study (ADAG), Diabetes Care, Vol.31,#8, Nov. 2007 12/30/2018 12:4 2 PM EDT us Arelis Severino MD LAB BLOOD ORDERABLES Final Result [place] from Last 3 Months or Most Recently Relevant to Health Maintenance [place] Care Teams Diving Board Assembler Relationship Specialty Start Date End Date Eddie Martins [address] [place] [id number] PCP - General Family Medicine 04/07/24
--- OUTSIDE RECORDS SUMMARY | 2024-05-03 06:21 | XMS_ITS | Encounter Summary ---
Author Organization [facility] Address [address] [place] [address] Care Team Providers Care Lining Closer Name Role Phone Arelis Severino MD Primary Care Provider [phone] Reason for Visit * Reason Onset Date Comments Appointment 04/21/2024 Encounter Details Date Type Department Care Team ([facility] st Contact Info) Description 04/21/2024 Telephone Lung Screening Program - [address] [place] [address] Velia Salinas MA Appointment Social History Tobacco Use Types Packs/Day Years [...] file Not on file Not on file documented as of this encounter Progress Notes * Velia Salinas MA - 04/21/2024 11:33 AM EST Arnoldo Brooks was contacted by the Lung Cancer Screening Program today to confirm the appointment of their Lung Cancer Screening. The patient is currently scheduled to have their screening on Saturday May 04, 2024 ,at [facility]. Patient reschedule to ThursdayMay 09t 800 AM For all screenings scheduled during the week, the patient will check in at Patient Registration on the first floor of the main hospital. For screenings that take place on the weekend or after 5pm, check-in directly in Radiology. The patient was given the Lung Cancer Screening Program phone number, , to contact if they have any additional questions, concerns or need to reschedule. Patients are encouraged to call our office and reschedule if they are exhibiting any cold-like symptoms, have recently been treated for Pneumonia or Influenza (the flu) or have had another CT of their Chest since their last screening. documented in this encounter Plan of Treatment Upcoming Encounters Date Type Department Care Team (Late st Contact Info) Description 05/09/2024 8:00 AM EST Appointment [facility] CT Scan [address] [place] [address] documented as of this encounter Visit Diagnoses Not on filedocumented in this encounter Care Teams Lining Closer Relationship Specialty Start Date End Date Arelis Severino MD [address] [place] [address] [place] [address] PCP - General Internal Medicine 04/21/24 documented as of this encounter
--- OUTSIDE RECORDS SUMMARY | 2024-05-03 06:22 | XMS_ITS ---
Author Organization [facility] Address [address] [place] [address] Care Team Providers Care Patrol Supervisor Name Role Phone Eddei Martins M.D. Primary Care Provider Deepikaa Carlitos Iglesias Jr Unavailable [phone] REASON FOR VISIT screening Encounters Encounter Location Date Provider Diagnosis [facility] [place] [address] [place] [phone] 05/03/2024 Carlitos Enriquez Jr PLAN OF TREATMENT Next Appt Details Provider Name:Carlitos stout Jr, 05/03/2024 07:30:00 AM, [address] [place] [address], [phone],
--- OUTSIDE RECORDS SUMMARY | 2024-05-03 06:22 | XMS_ITS | Encounter Summary ---
Author Organization [facility] Address [address] [facility] [address] [place] [address] Phone Care Team Providers Care Algologist Name Role Phone Eddie Martins Primary Care Provider Encounter Details Date Type Department Care Team (Late Contact Info) Description 10/27/2023 Office Communication [facility] [address] [facility] [address] [place] [phone] Mee Aquino [address] [place] [phone] Social History Tobacco Use Types Packs/Day Years Used Date Smoking Tobacco: Former Alcohol Use Standard Drinks/Week Comments Yes 0 (1 standard drink = 0.6 oz pure alcohol) Alcoholic Drinks/day: Occasional social drink Sex and Gender Information Value Date Recorded Sex Assigned at Not on file Legal Sex Male 4:55 PM EST Gender Identity Not on file Sexual Orientation Not on file documented as of this encounter Miscellaneous Notes * Telephone Encounter - Mee Aquino - 10/27/2023 10:29 AM EDT PT called asking for Dr Aquino to call re. His swollen ankle, leg, and foot, feels it may be water buildup. Says BP is normal, has gained about 4 lbs in last week or so. Wanted you to look at his HMClabs which were done approx 3 weeks ago, I don't see results. Pls call him at [phone]. TY documented in this encounter Plan of Treatment Upcoming Encounters Date Type Department Care Team (Late st Contact Info) Description 08/01/2024 3:00 PM EDT Office Visit [facility] [address] [place] [address] [place] [address] Rudi Aquino MD [address] [facility] [address] [place] [address] documented as of this encounter Visit Diagnoses Not on filedocumented in this encounter Care Teams Algologist Relationship Specialty Start Date End Date Eddie Martins [address] [place] [address] PCP - General Family Medicine 04/07/24 documented as of this encounter
--- OUTSIDE RECORDS SUMMARY | 2024-05-03 06:22 | XMS_ITS ---
Author Organization [facility] Address [address] [place] [address] Care Team Providers Care Coyote Hunter Name Role Phone Eddie Martins M.D. Primary Care Provider Carlitos Begum Jr Unavailable ALLERGIES Allergen (clinical drug ingredient) [...] Problem Colon cancer screening (Z12.11) Active confirmed 913358510 Problem halfway (current) use of oral hypoglycemic drugs (Z79.84) Active confirmed [id number] VITAL SIGNS BMI 26.29 kg/m2 03/21/2024 Blood pressure systolic 000 mm Hg 03/21/20 24 Blood pressure diastolic 00 mm Hg 024 Height 68.50 in 03/21/2024 Temperature 98.0 degrees Fahrenheit 03/21/20 24 Weight 175 lb 8 oz lbs 03/21/2024 Encounters Encounter Location Date Provider Diagnosis [facility] [address] [place] [address] 03/21/2024 Carlitos Enriquez Jr Colon cancer screening Z12.11 and intermediate frame tender (current) use of oral hypoglycemic drugs Z79.84 ASSESSMENTS Encounter Date Diagnosis Assessment Notes Treatment Notes Treatment Clinical Notes 03/21/2024 Colon cancer screening (ICD-10 - Z12.11) Colonoscopy material was printed 03/21/2024 halfway (current) use of oral hypoglycemic drugs (ICD-10 - Z79.84) PLAN OF TREATMENT Medication Medication Name Sig Start Date Stop Date Notes MiraLax (colon prep) 17 GM/SCOOP mixed with Gatorade or Crystal Light Orally begin at 5:00 p.m. the day before the procedure for 1 day 03/21/2024 Treatment Notes Assessment Notes Colon cancer screening Colonoscopy mater ial was printed Future Test Test Name Order Date COLONOSCOPY 03/21/2024 Next Appt Details Follow Up: 1 Year, Reason: Provider Name:Carlitos stout Jr, 05/03/2024 07:30:00 AM, [address] [place] [address] , [place], [place], [phone], Progress Notes * Examination Category Sub-Category Detail Notes General Examination GENERAL APPEARANCE: in no ac brad distress HEAD: normocephalic EYES: sclera non-icteric NECK/THYROID: no lymphadenopathy HEART: S1, S2 normal, no mu rmurs CHEST: normal shape and exp ansion LUNGS: clear to auscultatio n bilaterally ABDOMEN: soft, nontender, non distended, bowel sounds present, no organomegaly SKIN: anicteric EXTREMITIES: no clubbing, cyanosi s, or edema PSYCH: cognitive function i ntact ORAL CAVITY: mucosa moist
--- OUTSIDE RECORDS SUMMARY | 2024-05-03 06:22 | XMS_ITS | Patient Health Record ---
Author Organization [facility] Address [address] [place] [address] Care Team Providers Care Business Intelligence Etl Developer Name Role Phone Eddie Martins M.D. Primary Care Provider Carlitos Begum Jr Unavailable [phone] ALLERGIES Allergen (clinical drug ingredient) Drug/Non Drug Allergy documented on EMR Reaction Allergy Type Onset Date Status sulfamethoxazole / trimethoprim Bactrim Unknown Drug Allergy Active REASON FOR REFERRAL Referring Provider First Name Arelis Referring Provider Last Name Mere Referring Provider Speciality Internal M edicine Referred Organization [facility] Referred Provider Carlitos Enriquez Jr Referred Address [address],[place], [place],[address], Referred Provider Specialty Gastroentero logy General Notes Cecy DEAN Daw n 02/09/2024 10:20:41 AM >REQUESTED A [facility] REFERRAL FROM DR RODRÍGUEZ'S OFFICE FOR VISIT [...] Problem Colon cancer screening (Z12.11) Active confirmed 813681720 Problem Rectal bleeding (K62.5) Active confirmed 29573469 Problem 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 control 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 (current) use of oral hypoglycemic drugs (Z79.84) Active confirmed 287119095537206 VITAL SIGNS Temperature 98.0 degrees Fahrenheit 03/21/2024 Blood pressure diastolic 00 mm Hg 03/21/2024 Height 68.50 in 03/21/2024 Blood pressure systolic 000 mm Hg 03/21/2024 Weight 175 lb 8 oz lbs 03/21/2024 BMI 26.29 kg/m2 03/21/2024 Encounters Encounter Location Date Provider Diagnosis [facility] [facility] [place] [address] [place] [phone] 05/03/2024 Carlitos Enriquez Jr [facility] [address] [place] [address] 03/21/2024 Carlitos Enriquez Jr Colon cancer screening Z12.11 and long-term (current) use of oral hypoglycemic drugs Z79.84 ASSESSMENTS Encounter Date Diagnosis Assessment Notes Treatment Notes Treatment Clinical Notes 03/21/2024 Colon cancer screening (ICD-10 - Z12.11) Colonoscopy material was printed 03/21/2024 long-term (current) use of oral hypoglycemic drugs (ICD-10 - Z79.84) PLAN OF TREATMENT Future Test Test Name Order Date COLONOSCOPY 09/16/2012 COLONOSCOPY 05/05/2018 COLONOSCOPY 03/21/2024 Next Appt Details Provider Name:Carlitos Henderson Lonny stout Jr, 05/03/2024 07:30:00 AM, [address] [facility] , [place], [place], [phone], Insurance Providers Payer Name Payer Address Payer Phone Subscriber Number Group Number Insured Name Patient Relationship to Insured Coverage Start Date Coverage End Date [facility] [address] [place] [address] [id number] TIM CASTRO Self - patient is the insured MEDICAID OF [employer] [address] [place] [address] [id number] TIM ACSTRO Self - patient is the insured MEDICAL (GENERAL) HISTORY Medical History History ICD Code Hyperlipidemia Hypertension Gastroesophageal reflux disease Colonoscopy 08/22, tubular adenoma, five- year followup Chronic kidney disease stage III Anxiety Non-small cell lung cancer, right upper lobe Diabetes mellitus Left kidney cancer, S/P Cryoblation COPD Surgical History Surgery Date(Month/Year) right upper lobectomy 12/2017 back surgery
--- OUTSIDE RECORDS SUMMARY | 2024-05-03 06:22 | XMS_ITS | Encounter Summary ---
Author Organization [facility] Address [address] [place] [phone] Phone Care Team Providers Care Concrete Pourer Name Role Phone Eddie Martins Primary Care Provider [phone] Reason for Visit * Reason Comments Stage 3b chronic kidney disease Encounter Details Date Type Department Care Team (Late st Contact Info) Description 04/07/2024 4:30 PM EST Office Visit [facility] [address] [place] [address] Rudi Aquino MD [address] [address] Stage 3b chronic kidney disease (HCC) (Primary Dx); Renal osteodystrophy; Hypertensive chronic kidney disease Social History Tobacco Use Types Packs/Day Years [...] on file documented as of this encounter Last Filed Vital Signs Vital Sign Reading Time Taken Comments Blood Pressure 138/78 04/07/2024 3:55 PM EST Pulse 83 04/07/2024 3:55 PM EST Temperature - - Respiratory Rate - - Oxygen Saturation 95% 04/07/2024 3:55 PM EST Inhaled Oxygen Concentration - - Weight 76.2 kg (168 lb) 04/07/2024 3:55 PM EST Height - - Body Mass Index 24.81 04/11/2019 12:00 PM EST documented in this encounter Patient Instructions * Patient Instructions* Rudi Aqiuno MD - 04/07/2024 4:30 PM EST Sodium and Your CKD Diet: How to Spice Up Your Cooking What is sodium? Sodium is a mineral found naturally in foods and is the major part of table salt. What are the effects of eating too much sodium? When your kidneys are not healthy, extra sodium and fluid build up in your body. This can cause swollen ankles, puffiness, a rise in blood pressure, shortness of breath, and/or fluid around your heart and lungs. See the following table for suggestions on how to reduce sodium in your diet. LIMIT THE [AMOUNT OF... FOOD TO LIMIT BECAUSE OF THEIR HIGH SODIUM CONTENT ACCEPTABLE SUBSTITUTES SALT & SALT SEASONINGS Table salt Seasoning salt Garlic salt Onion salt Celery salt Lemon pepper Lite salt Meat tenderizer Bouillon cubes Flavor enhancers Fresh garlic, fresh onion, garlic powder, onion powder, black [pepper, lemon juice, low-sodium/salt-free seasoning blends, vinegar SALTY FOODS Barbecue sauce Steak sauce Soy sauce Teriaky sauce Oyster sauce Salted Snacks such as Crackers Potato chips Bear chips Pretzels Tortilla chips Nuts Popcorn Bollinger seeds Homemade or low- sodium sauces and salad dressings; Vinegar, dry mustard, unsalted popcorn, pretzels, tortilla or corn chips Cured Foods Ham Salt pork Munoz Sauerkraut Pickles, pickle relish Lox & Cuadra Olives Fresh beef, veal, pork, poultry, fish, eggs [place] [employer] Hot Dogs Cold cuts, deli meats Pastrami Sausage Corned beef Spam Low-salt deli meats PROCESSED FOODS Buttermilk Cheese Canned: Soups Tomato products Vegetable juices Canned vegetables Convenience Foods such as: TV Dinners Canned raviolis [place] Macaroni & Cheese Spaghetti Frozen prepared foods Fast foods Natural cheese (1-2 oz Per week) Homemade or roxanne,1- sodium soups, canned food without added salt Homemade casseroles without added salt, made with fresh or raw vegetables, fresh meat, sarabjit, pasta, or unsalted canned vegetables Some salt or sodium is needed for body water balance. But when your kidneys lose the ability to control sodium and water balance, you may experience the following: thirst fluid gain high blood pressure discomfort during dialysis By using less sodium in your diet, you can control these problems. Hints to keep your sodium intake down Cook with herbs and spices instead of salt. (Refer to Spice Up Your Cooking section for further suggestions.) Read food labels and choose those foods low in sodium. Avoid salt substitutes and specialty low-sodium foods made with salt substitutes because they are high in potassium. When eating out, ask for meat or fish without salt. Ask for gravy or sauce on the side; these may contain large amounts of salt and should be used in small amounts . Limit use of canned, processed and frozen foods. Some information about reading labels Understanding the terms: Sodium Free - Only a trivial amount of sodium per serving. Very Low Sodium - 35 mg or less per serving. Low Sodium - 140 mg or less per serving. Reduced Sodium - Foods in which the level of sodium is reduced by 25%. Light or Lite in Sodium - Foods in which the sodium is reduced by at least 50% . Simple rule of thumb : If salt is listed in the first five ingredients, the item is probably too high in sodium to use. All food labels now have milligrams (mg) of sodium listed. Follow these steps when reading the sodiwn information on the label: 1. Know how much sodium you are allowed each day. Remember that there are 1000 milligrams (mg) in 1gram. For [id number], if your diet prescription is 2 grams of sodium , your limit is 2000 milligrams per day. Consider the sodium value or other food to be eaten during the day. 2. Look at the package label. Check the serving size. Nutrition values are expressed per yaneli g. How does this compare to your total daily allowance? If the sodium level is 500 mg or more per serving, the item is not a good choice. 3. Compare labels of similar products. Select the lowest sodium level for the same serving size. How to Spice Up Your Cooking Giving up salt does not mean giving up flavor. Learn to season your food with herbs and spices. Be creative and experiment for a new and exciting flavor. What kinds of spices and herbs should I use instead of salt to add flavor? Try the following spices with the foods listed. Allspice: Use with beef, fish, beets, cabbage, canots, peas, fruit. Basil: Use with beef, pork, most vegetables. [place]: Use with beef, pork, most vegetables. Michael: Use with beef, pork, green beans, cauliflower, cabbage, beets, asparagus, and in dips and marinades. Cardamom: Use with fruit and in baked goods. Hart: Use with beef, chicken, pork, fish, green beans, carrots and in marinades. Dill: Use with beef, chicken, green beans, cabbage, carrots, peas and in dips. Yahaira: Use with beef, chicken, pork, green beans, cauliflower and eggplant. Marjoram: Use with beef, chicken, pork, green beans, cauliflower and eggplant. Stacey: Use with chicken, pork, cauliflower, peas and in marinades. Thyme: Use with beef, chicken, pork, fish, green beans, beets and carrots. Pako: Use with chicken, pork, eggplant and in dressing. Tarragon: Use with fish, chicken, asparagus, beets, cabbage, cauliflower and in marinades. Tips for cooking with herbs and spices Purchase spices and herbs in small amounts . When they sit on the shelf for years they lose their flavor. Use no more than ?? teaspoon of dried spice (?? of fresh) per pound of meat. Add ground spices to food about 15 minutes before the end of the cooking period. Add whole spices to food at least one hour before the end of the cooking period. Combine herbs with oil or butter, set for 30 minutes to bring out their flavor, then brush on foodswhile they cook, or brush meat with oil and sprinkle herbs one hour before coolcing. Crush dried herbs before adding to foods. Can I use salt substitutes? Caution! If you are told to limit potassium in your diet, be very cautious about using salt substitutes because most of them contain some form of potassium. Check with your doctor or dietitian beforeusing and salt substitute. [place] and create your own seasoning containing those spices that you like. If you would like to become a volunteer and find out more about what's happening where you live, contact your local [facility] Affiliate. No NSAIDS - Do not take non-steroidal anti-inflammatory medications (NSAIDS) such as Ibuprofen (Advil, Motrin, etc), Naproxen (Aleve, etc), Celecoxib (Celebrex) or Ketoprofen. These common arthritis medications can cause permanent kidney damage or worsen your kidney damage. For mild occasional pain, Acetaminophen (Tylenol, etc) is safe for your kidneys. Blood pressure monitoring education: Monitor home blood pressure values after sitting for 5 minutes with back and arm support. Keep a log. Bring your log and blood pressure cuff to your next visit. documented in this encounter Progress Notes * Rudi Aquino MD - 04/07/2024 4:30 PM EST Images from the original note were not included. Patient Name: Arnoldo Brooks Jr., Male Date of : 1950, 73 y.o. Date: 04/07/24 [] New Patient [x] Established Patient [] New Hospital Follow Up [] Established Hospital Follow Up [] Telemed Visit [] H&P Referring MD: Arelis Severino MD PCP: Eddie Martins Reason For Visit: CKD 3b, HTN Arnoldo Brooks Jr. is a 73 y.o. male seen today in f/u regarding stage 3 CKD on backdrop of HTN. S/P back surgery 6 months ago and now able to walk better. Cont routine yearly follow-up with Doctor Kiran from urology. Last Scr 1.90 (12/2023) No changes in his medications.No gross blood in the urineHe avoids NSAIDs. He does continue to smoke cigarettes. The following portions of the patient's chart were reviewed in this encounter and updated as appropriate: Allergies Meds Problems Med Hx Surg Hx Fam Hx Constitutional: Negative for chills and fever. Respiratory: Negative for cough and shortness of breath. Cardiovascular: Negative for chest pain, palpitations and leg swelling. Gastrointestinal: Negative for abdominal pain, nausea and vomiting. Genitourinary: Negative for dysuria, frequency, hematuria and urgency. Full 13 point review of systems unremarkable except as noted above. 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 Stage 3 chronic kidney disease Past Surgical History: Procedure Laterality Date OTHER SURGICAL HISTORY lung surgery Social History Tobacco Use Smoking status: Former Smokeless tobacco: Not on file Substance Use Topics Alcohol use: Yes Comment: Alcoholic Drinks/day: Occasional social drink Family History Problem Relation Age of Onset Diabetes Father Cancer Sibling sisters Current Outpatient Medications Medication Sig Dispense Refill famotidine (PEPCID) 10 MG tablet Take 40 mg by mouth 1 (one) time each day (Patient taking differently: Take by mouth 1 (one) time each day) finasteride (PROSCAR) 5 MG tablet Take 5 mg by mouth 1 (one) time each day Do not crush, chew, or split. Januvia 50 MG tablet Take 50 mg by mouth 1 (one) time each day lisinopril-hydroCHLOROthiazide (PRINZIDE,ZESTORETIC) 20-25 MG per tablet Take 1 tablet by mouth 1 (one) time each day pravastatin (PRAVACHOL) 40 MG tablet Take 80 mg by mouth 1 (one) time each day tamsulosin (FLOMAX) 0.4 MG 24 hr capsule Take 1 capsule by mouth 1 (one) time each day Dapagliflozin Propanediol 10 MG tablet Take 10 mg by mouth 1 (one) time each day in the morning 90 tablet 1 oxyCODONE (ROXICODONE) 5 MG immediate release tablet TAKE 1 TABLET BY MOUTH EVERY 6 HOURS NEEDEDFOR PAIN Oral for 7 No current facility-administered medications for this visit. Allergies Allergen Reactions Sulfamethoxazole-Trimethoprim Other (see comments) Objective: Vitals: 04/07/24 1555 BP: 138/78 BP Location: Right upper arm Patient Position: Sitting BP Cuff Size: Adult Pulse: 83 SpO2: 95% Weight: 168 lb (76.2 kg) 128/70 No results found for: EGFRAFR eGFR Non-Afr Slovenian Date Value Ref Range Status 10/23/2022 37 Final Chemistry Lab Units 01/04/24 0000 10/23/22 0000 CREATININE mg/dL 1.97* 1.90* BUN mg/dL 30* 24* EGFRNAFR -- 37 GLUCOSE -- 124 POTASSIUM -- 4.1 SODIUM -- 144 CO2 mmol/L -- 26 CHLORIDE -- 107.0 ALBUMIN g/dL -- 4.3 BILIRUBIN TOTAL MG/DL -- 0.3 AST U/L -- 11 ALT U/L -- 8 Bone Mineral Lab Units 10/23/22 0000 CALCIUM mg/dL 9.4 ALK PHOS U/L 93 CBC Lab Units 10/23/22 0000 WBC AUTO 10*3/ML 8.9 MCV 91.6 HEMATOCRIT 43.5 HEMOGLOBIN 14.0 PLATELETS AUTO 10*3/UL 176 No lab exists for component: SPECGRAV , GLUCOSEUR , BILIRUBINUR , RBCUR , UPROTEIN , LEUKOCYTESUR , NITRITE PLAN: Assessment & Plan 73 Y/O wM STAGE 3B CKD HYPERTENSIVE PATIENT 1. CKD 3B: c/w HTN renal injury and perhaps cigs smoking itself; Scr has been stable for years and no significant Uprot whoich are all good prognostic signs 2. HTN: ccontrolled ; goal < 130/80 3. H/O lung CA 4. Metabolic Bone Disease of CKD: cont to track CA, Phos, HCO3, PTH and vit D levels and treat accordingly 5. Cig use 6. Back pain: d/t recent fall and now s/p surg 09/2023 7. L renal mass 2.7 cm enhancing w C raising concern fo CA with cont close f/u Urol ( Dr Jackman) PLAN: repeat renal labs , cont f/u urol re: denny; mass; track BP , check PTH/vit D; avooid NSAIDs; stress need to quit cigs 1. Stage 3b chronic kidney disease (HCC) 2. Renal osteodystrophy 3. Hypertensive chronic kidney disease Orders Placed This Encounter PTH, Intact Renal Function Panel Urinalysis with microscopic Urine Albumin / Creatinine Ratio Protein, Total, Random Urine w/Creatinine (Protein/Creat Ratio) Vitamin D 25 Hydroxy CBC Phosphorus Magnesium Albumin Calcium Dapagliflozin Propanediol 10 MG tablet Return in about 3 months (around 07/06/2024). Rudi Aquino MD Vitals reviewed. Constitutional: No distress. Cardiovascular: Normal rate, regular rhythm and normal heart sounds. He exhibits no edema. Pulmonary/Chest: Effort normal and breath sounds normal. No respiratory distress. Abdominal: Soft. There is no abdominal tenderness. No hernia. Skin: Skin is warm and dry. Psychiatric: He has a normal mood and affect. His behavior is normal. documented in this encounter Plan of Treatment Upcoming Encounters Date Type Department Care Team (Late st Contact Info) Description 08/01/2024 3:00 PM EDT Office Visit [facility] [address] [place] [address] Rudi Aquino MD [address] [facility] [address] [place] [address] Scheduled Orders Name Type Priority Associated Diagnoses Orde r Schedule PTH, Intact Lab Routine Stage 3b chronic kidney disease (HCC) Renal osteodystrophy Hypertensive chronic kidney disease Expected: 04/07/2024, Expires: 05/08/2025 Renal Function Panel Lab Routine Stage 3b chronic kidney disease (HCC) Renal osteodystrophy Hypertensive chronic kidney disease Expected: 04/07/2024, Expires: 05/08/2025 Urinalysis with microscopic Lab Routine Stage 3b chronic kidney disease (HCC) Renal osteodystrophy Hypertensive chronic kidney disease Expected: 04/07/2024, Expires: 05/08/2025 Urine Albumin / Creatinine Ratio Lab Routine Stage 3b chronic kidney disease (HCC) Renal osteodystrophy Hypertensive chronic kidney disease Expected: 04/07/2024, Expires: 05/08/2025 Protein, Total, Random Urine w/Creatinine (Protein/Creat Ratio) Lab Routine Stage 3b chronic kidney disease (HCC) Renal osteodystrophy Hypertensive chronic kidney disease Expected: 04/07/2024, Expires: 05/08/2025 Vitamin D 25 Hydroxy Lab Routine Stage 3b chronic kidney disease (HCC) Renal osteodystrophy Hypertensive chronic kidney disease Expected: 04/07/2024, Expires: 05/08/2025 CBC Lab Routine Stage 3b chronic kidney disease (HCC) Renal osteodystrophy Hypertensive chronic kidney disease Expected: 04/07/2024, Expires: 05/08/2025 Phosphorus Lab Routine Stage 3b chronic kidney disease (HCC) Renal osteodystrophy Hypertensive chronic kidney disease Expected: 04/07/2024, Expires: 05/08/2025 Magnesium Lab Routine Stage 3b chronic kidney disease (HCC) Renal osteodystrophy Hypertensive chronic kidney disease Expected: 04/07/2024, Expires: 05/08/2025 Albumin Lab Routine Stage 3b chronic kidney disease (HCC) Renal osteodystrophy Hypertensive chronic kidney disease Expected: 04/07/2024, Expires: 05/08/2025 Calcium Lab Routine Stage 3b chronic kidney disease (HCC) Renal osteodystrophy Hypertensive chronic kidney disease Expected: 04/07/2024, Expires: 05/08/2025 documented as of this encounter Procedures Procedure Name Priority Date/Time Associated Diagnosis Comments EXT RESULT ENTRY Routine 01/04/2024 documented in this encounter Results * (ABNORMAL) EXT RESULT ENTRY (01/04/2024) BUN 30(A) 4 - 21 mg/dL Creatinine 1.97(A) 0.60 - 1.30 mg/dL 01/04/2024 us Historical Provider LAB BLOOD ORDERABLES Kim l Result documented in this encounter Visit Diagnoses Diagnosis Stage 3b chronic kidney disease (HCC)- Primary Renal osteodystrophy Hypertensive chronic kidney disease documented in this encounter Care Teams Concrete Pourer Relationship Specialty Start Date End Date Eddie Martins [address] [place] [id number] PCP - General Family Medicine 04/07/24 documented as of this encounter
[2024-05-03 06:42] VITALS: BMI 25.5
[2024-05-03 06:56] VITALS: BP 117/65; PULSE 96; RESP 16; TEMP 36.8; O2SAT 95
[2024-05-03 07:02] LABS: Glucose, Whole Blood 159 mg/dL (60-115)
[2024-05-03] MEDS: Lactated Ringers 1,000 ML 100 ML IVCONT (07:09)
--- NOTE | 2024-05-03 07:32 | MHC.SHP ---
Pre-Procedural Eval Section A - 24 Hr Update-Section A only Date of Service: 05/03/24 Section B - Complete if H&P > 30 days Chief Complaint: Encounter for screening for malignant neoplasm of Details of Present Illness: se4e H&P no chages Relevant Family History (Specify if Yes): No Relevant Social History: None Present Medications: see Short Stay Collaborative assessment Medical History: No relevant PMH History of Previous Operations: No relevant previous surgery Allergies: Allergies Allergy/AdvReac Type Severity Reaction Status Date / Time Sulfa (Sulfonamide Allergy Severe Fever Verified 01/07/24 08:51 Antibiotics) sulfamethoxazole Allergy Severe FEVER Verified 01/07/24 08:51 [From BACTRIM] trimethoprim [From BACTRIM] Allergy Severe FEVER Verified 01/07/24 08:51 Review of Systems Sugical H&P ROS: Negative: Constitution, Cardiovascular, Respiratory, Neurological, Psychiatric, Hem-Onc, Allergic/Immunologic, Gastrointestinal, Genitourinary, Musculoskeletal, Integumentary, Endocrine and Eyes/Ears/Nose/Throat Exam Surgical H&P Exam: Normal: HEENT, Normal: Heart, Normal: Lungs, Normal: Extremities, Normal: Abdomen, Normal: Skin and Normal: Neurological Plan I have reviewed the history and physical and performed a pertinent physical examination on my patient. No changes have occurred unless specified. Time Spent With Patient Time: Total time managing care of this patient today ____ minutes.
[2024-05-03 08:05] VITALS: BP 85/52; PULSE 86; RESP 16; TEMP 36.8; O2SAT 91
[2024-05-03 08:25] VITALS: BP 119/53; PULSE 79; RESP 20; TEMP 36.5; O2SAT 94
--- NOTE | 2024-05-03 08:37 | OP_ITS ---
DATE OF SERVICE: 05/03/2024 SURGEON: Carlitos Enriquez MD INDICATIONS: Colon cancer screening and prior history of adenomatous colon polyps. PREOPERATIVE DIAGNOSIS: POSTOPERATIVE DIAGNOSIS: PROCEDURE PERFORMED: Colonoscopy to terminal ileum. ESTIMATED BLOOD LOSS: COMPLICATIONS: ANESTHESIA: Monitored anesthesia care. ASSISTANTS: SPECIMENS: DESCRIPTION OF PROCEDURE: A history and physical were performed. The risks and benefits of procedure were explained to the patient and informed consent was obtained. The patient was placed in the left lateral decubitus position. A digital rectal exam was performed and was found to be normal. The Olympus pediatric videocolonoscope was introduced into the rectum and advanced to the cecum. The cecum was identified by transillumination, palpation, and identification of ileocecal valve. Examination was performed. The scope was removed. He tolerated the procedure well, returned to recovery area in stable condition. FINDINGS: The terminal ileum was examined and appeared normal. Visualized colonic mucosa was normal. The quality of prep was good. No polyps were identified. Retroflexed examination showed moderate-sized internal hemorrhoids. IMPRESSION: Normal colonoscopy. RECOMMENDATION: 1. Follow up as needed. 2. Repeat colonoscopy is recommended in 10 years for average-risk individuals. This is optional based on the patient's age. MD EDUARDO Sunshine/ARAVINDL / [id number]
== END 2024-05-03 09:08 | disposition home or self-care (01) ==
PROVIDERS: PCP Internal Medicine; Visit Provider Internal Medicine Gastroenterology
PROC: 0DJD8ZZ Inspection of Lower Intestinal Tract, Via Natural or Artificial Opening Endoscopic (ICD-10-PCS; CPT 45378; principal; 2024-05-03 07:30)
DX: Z12.11 Encounter for screening for malignant neoplasm of colon (principal); Z86.0101 Personal history of adenomatous and serrated colon polyps; K64.8 Other hemorrhoids; E11.22 Type 2 diabetes mellitus with diabetic chronic kidney disease; I12.9 Hypertensive chronic kidney disease with stage 1 through stage 4 chronic kidney disease, or unspecified chronic kidney disease; N18.30 Chronic kidney disease, stage 3 unspecified; C64.9 Malignant neoplasm of unspecified kidney, except renal pelvis; K21.9 Gastro-esophageal reflux disease without esophagitis; E78.5 Hyperlipidemia, unspecified; Z85.118 Personal history of other malignant neoplasm of bronchus and lung; Z90.2 Acquired absence of lung [part of]; J43.9 Emphysema, unspecified; F41.9 Anxiety disorder, unspecified; Z79.51 Long term (current) use of inhaled steroids; Z79.84 Long term (current) use of oral hypoglycemic drugs; Z79.899 Other long term (current) drug therapy; Z99.89 Dependence on other enabling machines and devices; Z98.890 Other specified postprocedural states; F17.210 Nicotine dependence, cigarettes, uncomplicated; Z88.2 Allergy status to sulfonamides
CPT/HCPCS: G0105; 82947; J2003; J2704

== ENCOUNTER 2024-06-27 06:02 | Outpatient (REF) | payer MEDICARE, MEDICAID, SELFPAY ==
[2024-06-27 10:33] LABS: MANUAL DIFF FLAG NO
[2024-06-27 10:37] LABS: Basophils Absolute Auto 0.1 X10*3/uL (0.0-0.2); Basophils Percent Auto 0.9 % (0-2); Eosinophils Absolute Auto 0.5 X10*3/uL (0.0-0.4); Eosinophils Percent Auto 5.9 % (0-4); Hematocrit 44.1 % (42.0-52.0); Hemoglobin 14.4 g/dl (14.0-18.0); Imm Gran Abs Auto 0.04 X10*3/uL (0.00-0.03); Imm Gran Pct Auto 0.4 % (0.0-0.4); Lymphocytes Absolute Auto 2.1 X10*3/uL (1.2-4.9); Lymphocytes Percent Auto 22.9 % (20-40); Mean Corpuscular HGB Conc 32.7 g/dl (31.0-36.0); Mean Corpuscular Hemoglobin 30.1 pg (27.0-33.0); Mean Corpuscular Volume 92.3 fL (80.0-98.0); Mean Platelet Volume 11.1 fL (9.4-12.4); Monocytes Absolute Auto 0.9 X10*3/uL (0.1-1.2); Monocytes Percent Auto 9.8 % (2-11); Neutrophils Absolute Auto 5.5 x10*3/uL (2.0-8.3); Neutrophils Percent Auto 60.1 % (45-73); Platelet Count 200 X10*3/uL (160-400); Red Blood Count 4.78 X10*6/uL (4.60-5.80); Red Cell Distribution Width 14.8 % (11.0-16.0); White Blood Count 9.1 X10*3/uL (4.8-10.8)
[2024-06-27 10:54] LABS: Estimated Average Glucose 137 mg/dL; Hemoglobin A1C 173.7772 umol/L; Hemoglobin A1c % 6.4 % (<6.0); Total Hemoglobin (HGBA1C) 3754.7316 umol/L
[2024-06-27 11:19] LABS: Alanine Aminotransferase 13 U/L (0-40); Albumin Level 4.1 g/dL (3.5-5.0); Alkaline Phosphatase 67 U/L (39-117); Anion Gap 12 (12-20); Aspartate Amino Transferase 19 U/L (5-37); Bilirubin Total 0.8 mg/dL (0.0-1.0); Blood Urea Nitrogen 33 mg/dL (9-16); Calcium 9.3 mg/dL (8.4-10.2); Carbon Dioxide 25 mmol/L (22-29); Chloride 107 mmol/L (96-108); Cholesterol 144 mg/dL (<200); Estimated Glomerular Filt Rate 34; Glucose Random 110 mg/dL (60-115); HDL Cholesterol 36 mg/dL (>40); LDL Cholesterol Calculated 77 mg/dL (<100); Sodium 140 mmol/L (135-145); Total Protein 6.8 g/dL (6.5-8.0); Triglycerides 159 mg/dL (<150)
== END 2024-06-27 06:03 | disposition home or self-care (01) ==
LOC: HO.HMGCLDS 06:02
PROVIDERS: Visit Provider Family Medicine
DX: E11.22 Type 2 diabetes mellitus with diabetic chronic kidney disease (principal); N18.32 Chronic kidney disease, stage 3b; E78.2 Mixed hyperlipidemia
CPT/HCPCS: 36415; 80053; 80061; 83036; 85025

== ENCOUNTER 2024-06-30 09:19 | Outpatient (REF) | payer MEDICARE, MEDICAID, SELFPAY ==
[2024-06-30 13:05] LABS: MANUAL DIFF FLAG NO
[2024-06-30 13:25] LABS: Basophils Absolute Auto 0.1 X10*3/uL (0.0-0.2); Eosinophils Absolute Auto 0.4 X10*3/uL (0.0-0.4); Eosinophils Percent Auto 5.4 % (0-4); Hemoglobin 13.6 g/dl (14.0-18.0); Imm Gran Abs Auto 0.02 X10*3/uL (0.00-0.03); Imm Gran Pct Auto 0.3 % (0.0-0.4); Lymphocytes Absolute Auto 1.6 X10*3/uL (1.2-4.9); Mean Corpuscular HGB Conc 32.4 g/dl (31.0-36.0); Mean Corpuscular Hemoglobin 29.8 pg (27.0-33.0); Mean Corpuscular Volume 91.9 fL (80.0-98.0); Mean Platelet Volume 10.9 fL (9.4-12.4); Monocytes Absolute Auto 0.8 X10*3/uL (0.1-1.2); Monocytes Percent Auto 11.6 % (2-11); Neutrophils Percent Auto 58.7 % (45-73); Platelet Count 202 X10*3/uL (160-400); Red Blood Count 4.57 X10*6/uL (4.60-5.80); Red Cell Distribution Width 14.9 % (11.0-16.0); White Blood Count 6.9 X10*3/uL (4.8-10.8)
[2024-06-30 13:30] LABS: Appearance Urine Clear; Color Urine Yellow; Glucose Urine UA Negative (Negative); Leukocyte Esterase Urine Negative (Negative); Nitrite Urine Negative (Negative); PH 5.5 (5.0-9.0); Specific Gravity - Urine 1.015 (1.005-1.025); Urine Blood Negative (Negative); Urine Ketones Negative (Negative); Urine Protein Negative (Neg-Trace)
[2024-06-30 13:36] LABS: Bacteria Urine None Seen (None Seen); Hyaline Casts Urine 0-2 /LPF (0-2); RBC Urine 0-2 /HPF (0-2); Squamous Epithelial Cell Urine 0-2 /HPF (0-2); WBC Urine 0-5 /HPF (0-5)
[2024-06-30 13:49] LABS: Albumin Level 3.9 g/dL (3.5-5.0); Anion Gap 12 (12-20); Calcium 8.9 mg/dL (8.4-10.2); Carbon Dioxide 24 mmol/L (22-29); Chloride 108 mmol/L (96-108); Magnesium 2.2 mg/dL (1.6-2.6); Phosphorus 2.8 mg/dL (2.7-4.5); Potassium 3.9 mmol/L (3.3-5.1); Sodium 140 mmol/L (135-145)
[2024-06-30 13:50] LABS: Parathyroid Hormone Intact 91.4 pg/mL (8.7-77.1)
[2024-06-30 13:58] LABS: Vitamin D 25-OH Total 36.1 ng/mL (>30)
[2024-06-30 14:04] LABS: Creatinine Urine 121.91 mg/dL; Microalbum/Creatinine Ratio Ur 4.9 ug/mg cr (<30); Total Protein Urine Random < 7 mg/dL (<12)
== END 2024-06-30 09:20 | disposition home or self-care (01) ==
LOC: HO.HMGCLDS 09:19
PROVIDERS: PCP Family Medicine; Visit Provider Internal Medicine Nephrology
DX: N18.32 Chronic kidney disease, stage 3b (principal); N25.0 Renal osteodystrophy; I12.9 Hypertensive chronic kidney disease with stage 1 through stage 4 chronic kidney disease, or unspecified chronic kidney disease
CPT/HCPCS: 36415; 80051; 81001; 82040; 82043; 82306; 82310; 82570; 83735; 83970; 84100; 84156; 85025

== ENCOUNTER 2024-07-14 13:00 | Outpatient (REF) | payer MEDICARE, MEDICAID, SELFPAY ==
--- NOTE | ~2024-07-14 | US_ITS ---
EXAMINATION: US KIDNEY BILATERAL HISTORY: C64.9 - Malignant neoplasm of unspecified kidney, except renal pelvis TECHNIQUE: Real-time grayscale ultrasound imaging of the kidneys was performed and images were reviewed. COMPARISON: Comparison is made with the prior examination dated 09/04/2022. FINDINGS: Right kidney: The right kidney measures 9.2 x 4.8 x 5.6 cm. Renal parenchymal echotexture and thickness are normal. Multiple cysts are again noted, the largest of which is in the interpolar region measuring 8.1 x 5.8 x 7.6 cm. No solid mass is identified. There is no hydronephrosis or renal calculi. Left Kidney: The left kidney measures 9.6 x 4.7 x 4.8 cm. Renal parenchymal echotexture and thickness are normal. Again seen is a mass at the upper pole measuring 2.8 x 2.5 x 2.2 cm. Previously this measured 3.2 x 2.8 x 2.0 cm and the patient is status post interval cryoablation. No definite color Doppler flow is seen within the mass. There is a 1.2 x 0.9 x 1.3 cm cyst at the lower pole. There is a nonobstructing 5 mm calculus in the interpolar region. There is no hydronephrosis. US/US renal BI IMPRESSION: 1. 2.8 x 1.5 x 2.2 cm mass at the upper pole of the left kidney, which is slightly smaller than on the prior study. The patient is status post cryoablation in the interval since the prior study. 2. Multiple bilateral renal cysts as described above. 3. 5 mm nonobstructing left renal calculus. Electronically signed by: Kerwin Ortiz MD 07/14/2024 02:44 PM EDT
--- OUTSIDE RECORDS SUMMARY | 2024-07-14 15:41 | XMS_ITS ---
Author Organization [facility] Address [address] [place] [phone] Care Team Providers Care Counter Clerk Name Role Phone Eddie Martins M.D. Primary Care Provider Carlitos Begum Jr Unavailable [phone] REASON FOR VISIT screening Encounters Encounter Location Date Provider Diagnosis [facility] Outpatient [address] [place] [phone] 05/03/2024 Carlitos Enriquez Jr Colon cancer screening Z12.11 Assessments Encounter Date Diagnosis (ICD Code) Assessment Notes Treatment Notes Treatment Clinical Notes Section Notes 05/03/2024 Colon cancer screening (ICD-10 - Z12.11) Plan Of Treatment No Information Progress Notes * TIM CASTRO JrDOB:[birth year] (73 yo M)Acc No.[id number]:05/03/2024 COLON WITH MAC Patient:?TIM CASTRO Provider:?Carlitos Enriquez MD :1950???Age:73 Y???Sex:Male Alfredo e:05/03/2024 Address:[facility] [id number] Pcp:Eddie Martins M.D. Subjective: * Chief Complaints: * ???1. Screening. * Medical History:? Objective: * Vitals:? Assessment: * Assessment: 1.?Colon cancer screening - Z12.11 (Primary)??? Plan: * Treatment: * Procedure Codes:?60676 DIAGN OSTIC COLONOSCOPY, 0529F INTRVL 3+YRS PTS CLNSCP DOCD, 0528F RCMND FLW-UP 10 YRS DOCD * * The named appointment provid er may or may not be the originator of this progress note, and it is not deemed complete until electronically signed by the appointment provider. Sign off status: Pending * Provider:?Carlitos Enriquez MD Date:?0 05/03/2024 Generated for Carlos Manuel santiago/Abad/Mónica on:?07/14/2024 03:41 PM EDT
--- OUTSIDE RECORDS SUMMARY | 2024-07-14 15:41 | XMS_ITS | Encounter Summary ---
Author Organization [facility] Address [address] [facility] [address] [place] [address] Phone Care Team Providers Care Chief Information Officer Name Role Phone Eddie Martins Primary Care Provider [phone] Encounter Details Date Type Department Care Team (Late Contact Info) Description 10/27/2023 Office Communication [facility] [address] [facility] [address] [place] [phone] Mee Aquino [address] [place] [phone] Social History Tobacco Use Types Packs/Day [...] don't see results. Pls call him at [phone]. TY documented in this encounter Plan of Treatment Upcoming Encounters Date Type Department Care Team (Late st Contact Info) Description 08/01/2024 3:00 PM EDT Office Visit [facility] [address] [place] [phone] Rudi Aquino MD [address] [facility] [address] [place] [address] documented as of this encounter Visit Diagnoses Not on filedocumented in this encounter Care Teams Chief Information Officer Relationship Specialty Start Date End Date Eddie Martins [address] [place] [id number] PCP - General Family Medicine 04/07/24 documented as of this encounter
--- OUTSIDE RECORDS SUMMARY | 2024-07-14 15:41 | XMS_ITS | Patient Health Record ---
Author Organization [facility] Address [address] [place] [address] Care Team Providers Care Milk Deliverer Name Role Phone Eddie Martins M.D. Primary Care Provider Carlitos Begum Jr Unavailable Allergies Allergen (clinical drug ingredient) Drug/Non Drug Allergy documented on EMR Reaction Allergy Type Onset Date Status sulfamethoxazole / trimethoprim Bactrim Unknown Drug Allergy Active Results Component Value Reference Range Notes Glucose, Whole Blood Reviewed date:05/04/2024 07:50:22 AM Interpretation: Performing Lab:[facility], [address] [place] [id number] Notes/Report: Glucose, Whole Blood 159 60-115 mg/dL METER # : [id number] Reason For Referral Referring Provider First Name Arelis Referring Provider Last Name Mere Referring Provider Speciality Internal M edicine Referred Organization [facility] Referred Provider Carlitos Enriquez Jr Referred Address [address],[place], [place],[address], Referred Provider Specialty Gastroentero logy General Notes Cecy DEAN Daw n 02/09/2024 10:20:41 AM >REQUESTED A [facility] REFERRAL FROM DR RODRÍGUEZ'S OFFICE FOR VISIT ON 03-21-2024 (SAID February) Referral Priority Routine Medications Medication SIG (Take, Route, Frequency, Duration) Notes [...] 1 tablet Orally Once a day Active Immunizations Vaccine Route Administration Date Status Comme nts Influenza Unknown 12/15/2017 Administered Influenza Unknown 03/21/2024 Refused Social History Tobacco Use: Social History Observation Description Date Details (start date - stop date) Current Smoker NA - NA Tobacco Use/Smoking Question Answer Notes Patient is a current smoker Problems Problem Type SNOMED Code ICD Code Onset Dates Problem Status W/U Status Risk Notes Problem 765616460 Colon cancer screening (Z12.11) Active confirmed Problem 88693904 Rectal bleeding (K62.5) Active confirmed Problem 595702215675117 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 terminal (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) use of oral hypoglycemic drugs (Z79.84) Active confirmed Vital Signs Temperature 98.0 degrees Fahrenheit 03/21/2024 Blood pressure diastolic 00 mm Hg 03/21/2024 Height 68.50 in 03/21/2024 Blood pressure systolic 000 mm Hg 03/21/2024 Weight 175 lb 8 oz lbs 03/21/2024 BMI 26.29 kg/m2 03/21/2024 Encounters Encounter Location Date Provider Diagnosis [facility] [address] [place], [place] [id number] 05/03/2024 Carlitos Enriquez Jr Colon cancer screening Z12.11 [facility] [address] [place] [address] 03/21/2024 Carlitos Enriquez Jr Colon cancer screening Z12.11 and manager terminal (current) use of oral hypoglycemic drugs Z79.84 Assessments Encounter Date Diagnosis (ICD Code) Assessment Notes Treatment Notes Treatment Clinical Notes Section Notes 05/03/2024 Colon cancer screening (ICD-10 - Z12.11) 03/21/2024 Colon cancer screening (ICD-10 - Z12.11) Colonoscopy material was printed We discussed colonoscopy today. We discussed risks and benefits of the procedure today. He is advised to stop Januvia 2 days before the procedure. He is aware of person benefits and agrees to proceed. 03/21/2024 manager terminal (current) use of oral hypoglycemic drugs (ICD-10 - Z79.84) We discussed colonoscopy today. We discussed risks and benefits of the procedure today. He is advised to stop Januvia 2 days before the procedure. He is aware of person benefits and agrees to proceed. Plan Of Treatment Future Test Test Name Order Date COLONOSCOPY 09/16/2012 COLONOSCOPY 05/05/2018 COLONOSCOPY 03/21/2024 Insurance Providers Payer Name Payer Address Payer Phone Subscriber Number Group Number Insured Name Patient Relationship to Insured Coverage Start Date Coverage End Date [facility] [address] [place] [address] [id number] TIM CASTRO Self - patient is the insured MEDICAID [facility] [employer] [address] [place] [id number] TIM CASTRO Self - patient is the insured Medical (General) History Medical History History ICD Code Hyperlipidemia Hypertension Gastroesophageal reflux disease Colonoscopy 08/22, tubular adenoma, five- year followup Chronic kidney disease stage III Anxiety Non-small cell lung cancer, right upper lobe Diabetes mellitus Left kidney cancer, S/P Cryoblation COPD Surgical History Surgery Date(Month/Year) right upper lobectomy 12/2017 back surgery
--- OUTSIDE RECORDS SUMMARY | 2024-07-14 15:41 | XMS_ITS ---
Author Organization [facility] Address [address] [place] [address] Care Team Providers Care Apartment Community Manager Name Role Phone Eddie Martins M.D. Primary Care Provider Carlitos Begum Jr Unavailable Allergies Allergen (clinical drug ingredient) Drug/Non Drug Allergy documented on EMR Reaction Allergy Type Onset Date Status sulfamethoxazole / trimethoprim Bactrim Unknown Drug Allergy Active REASON FOR VISIT Patient presents today for a COLON SCREENING Medications Medication SIG (Take, Route, Frequency, Duration) [...] Status Comme nts Influenza Unknown 03/21/2024 Refused Social History Tobacco Use: Social History Observation Description Date Details (start date - stop date) Current Smoker NA - NA Tobacco Use/Smoking Question Answer Notes Patient is a current smoker Problems Problem Type SNOMED Code ICD Code Onset Dates Problem Status W/U Status Risk Notes Problem 109213803 Colon cancer screening (Z12.11) Active confirmed Problem 910038357585519 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 oral hypoglycemic drugs (Z79.84) Active confirmed Vital Signs Temperature 98.0 degrees Fahrenheit 03/21/20 24 Blood pressure systolic 000 mm Hg 03/21/20 24 Blood pressure diastolic 00 mm Hg 024 Height 68.50 in 03/21/2024 Weight 175 lb 8 oz lbs 03/21/2024 BMI 26.29 kg/m2 03/21/2024 Encounters Encounter Location Date Provider Diagnosis [facility] [address] [place] [address] 03/21/2024 Carlitos Enriquez Jr Colon cancer screening Z12.11 and [facility] (current) use of oral hypoglycemic drugs Z79.84 Assessments Encounter Date Diagnosis (ICD Code) Assessment Notes Treatment Notes Treatment Clinical Notes Section Notes 03/21/2024 Colon cancer screening (ICD-10 - Z12.11) Colonoscopy material was printed We discussed colonoscopy today. We discussed risks and benefits of the procedure today. He is advised to stop Januvia 2 days before the procedure. He is aware of person benefits and agrees to proceed. 03/21/2024 [facility] (current) use of oral hypoglycemic drugs (ICD-10 - Z79.84) We discussed colonoscopy today. We discussed risks and benefits of the procedure today. He is advised to stop Januvia 2 days before the procedure. He is aware of person benefits and agrees to proceed. Plan Of Treatment Medication Medication Name Sig Start Date Stop Date Notes MiraLax (colon prep) 17 GM/SCOOP mixed with Gatorade or Crystal Light Orally begin at 5:00 p.m. the day before the procedure for 1 day 03/21/2024 Treatment Notes Assessment Notes Colon cancer screening Colonoscopy mater ial was printed Future Test Test Name Order Date COLONOSCOPY 03/21/2024 Next Appt Details Follow Up: 1 Year, Reason: Progress Notes * TIM CASTROB:[birth year] (73 yo M)Acc No.[id number]:03/21/2024 Progress Notes Patient:?TIM CASTRO Provider:?Carlitos Enriquez MD :1950???Age:73 Y???Sex:Male Alfredo e:03/21/2024 Address:[address] [place], [place] [address] Pcp:Arelis Severino Subjective: * Chief Complaints: * ???1. Patient presents today for a COLON SCREENING. * HPI: ???New symptom(s):? The patient is a pleasant 73-year-old man seen today in consultation. He has a history of colon polyps and last underwent colonoscopy in 2019 which showed a tubular adenoma for which five-year followup was recommended. He has no complaints of rectal bleeding or change in his bowel habits. Weight and appetite have been stable. * ROS:?General/Constitutional:?Change in appetite?denies.?Fatigue?denies.?ENT:?Patient denies?difficulty swallowing.?Respiratory:?Patient denies?shortness of breath.?Cardiovascular:?Patient denies?chest pain.?Gastrointestinal:?Comments?See HPI for details.?Genitourinary:?Difficulty urinating?denies.?Incontinence?denies.?Musculoskeletal:?Patient denies?muscle aches.?Skin:?Patient denies?pruritis.?Neurologic:?Patient denies?low back pain.?Psychiatric:?Patient denies?mental or physical abuse.? * Medical History:?Hyperlipide jaime, Hypertension, Gastroesophageal reflux disease, Colonoscopy 08/22, tubular adenoma, five-year followup, Chronic kidney disease stage III, Anxiety, Non-small cell lung cancer, right upper lobe, Diabetes mellitus, Left kidney cancer, S/P Cryoblation, COPD. * Surgical History:?right uppe r lobectomy 12/2017, back surgery . * Family History:?Father: dece ased, diagnosed with Diabetes.?Mother: , diagnosed with Heart disease.? Denies family hx. * Social History:?Tobacco Use:?Tobacco Use/Smoking?Patient is a?current smoker.?Drugs/Alcohol:?Alcohol Screen?Points: 2, Interpretation: Negative.?Miscellaneous:?Marital status: Single. Occupation: [employer]. * Medications:?Taking Pravasta tin Sodium 40 MG Tablet 1 tablet Orally Once a day, Taking Famotidine 40 MG Tablet 1 tablet at bedtime Orally Once a day, Taking Anusol-HC 25 MG Suppository 1 suppository Rectal at night/prn, Taking Lisinopril-hydroCHLOROthiazide 20-12.5 MG Tablet 1 tablet Orally Once a day, Taking Tamsulosin HCl 0.4 MG Capsule TAKE 1 CAPSULE BY MOUTH EVERY NIGHT AT BEDTIME Oral , Taking Finasteride 5 MG Tablet TAKE 1 TABLET BY MOUTH EVERY DAY Oral , Taking Trelegy Ellipta 200-62.5-25 MCG/ACT Aerosol Powder Breath Activated INHALE 1 PUFF BY MOUTH DAILY Inhalation , Taking Januvia 50 MG Tablet TAKE 1 TABLET BY MOUTH DAILY Oral , Taking oxyCODONE HCl 5 MG Tablet TAKE 1 TABLET BY MOUTH EVERY 6 HOURS NEEDED FOR PAIN Oral , Discontinued Colyte with Flavor Packs 240 GM Solution Reconstituted As directed Orally Over the specified time., Medication List reviewed and reconciled with the patient * Allergies:?Bactrim. Objective: * Vitals:?Wt: 175 lb 8 oz, Ht: 68.50 in, BMI:26.29 Index, BP: 000/00 mm Hg, Temp: 98.0. * Examination: ???General Examination: ?GENERAL APPEARANCE:?in no acute distress.?HEAD:?normocephalic.?EYES:?sclera non-icteric.?ORAL CAVITY:?mucosa moist.?NECK/THYROID:?no lymphadenopathy.?SKIN:?anicteric.?HEART:?S1, S2 normal, no murmurs.?LUNGS:?clear to auscultation bilaterally.?CHEST:?normal shape and expansion.?ABDOMEN:?soft, nontender, nondistended, bowel sounds present, no organomegaly .?EXTREMITIES:?no clubbing, cyanosis, or edema.?PSYCH:?cognitive function intact.? Assessment: * Assessment: 1.?[facility] (current) use o f oral hypoglycemic drugs - Z79.84 (Primary)?2.?Colon cancer screening - Z12.11? We discussed colonoscopy tod ay. We discussed risks and benefits of the procedure today. He is advised to stop Januvia 2 days before the procedure. He is aware of person benefits and agrees to proceed. Plan: * Treatment: Notes: Colonoscopy material was printed?? * Immunizations:? Influenza (Not administered - Refused: Patient decision) * Procedure Codes:?3017F COLOR ECTAL CA SCREEN DOC REV, G9903 Pt scrn tbco id as non user, G9744 PATIENT NOT ELIG D/T ACTIVE DX HTN * Preventive Medicine:? ??Counseling:?Care goal follow-up plan:?Above Normal BMI Follow-up?Giving encouragement to exercise,?BMI management provided?Yes.? ??Screenings:?Fall Risk Screening?Fall Risk Assessment:?No falls in the past year,?Screening:?No falls in the past year,?Assessment:?Not performed, no reason specified,?Plan of Care:?Not documented, no reason specified.? * Follow Up:?1 Year * * Sign off status: Completed true * Provider:?Carlitos Enriquez MD Date:?1 05/22/2023 Generated for Carlos Manuel santiago/Abad/Oniitting on:?07/14/2024 03:40 PM EDT History and Physical Notes * HPI (History of Present Illness) Category Sub-Category Detail Notes Category Not es New symptom(s) The patient i s a pleasant 73-year-old man seen today in consultation. He has a history of colon polyps and last underwent colonoscopy in 2019 which showed a tubular adenoma for which five-year followup was recommended. He has no complaints of rectal bleeding or change in his bowel habits. Weight and appetite have been stable. Examination Category Sub-Category Detail Notes Category Not es General Examination GENERAL APPEARANCE: in no acute di stress HEAD: normocephalic EYES: sclera non-icteric NECK/THYROID: no lymphadenopathy HEART: S1, S2 normal, no mu rmurs CHEST: normal shape and exp ansion LUNGS: clear to auscultatio n bilaterally ABDOMEN: soft, nontender, non distended, bowel sounds present, no organomegaly SKIN: anicteric EXTREMITIES: no clubbing, cyanosi s, or edema PSYCH: cognitive function i ntact ORAL CAVITY: mucosa moist
--- OUTSIDE RECORDS SUMMARY | 2024-07-14 15:41 | XMS_ITS | Clinical Summary ---
Author Organization [facility] [address] [facility] Address [address] [place] [address] Phone Care Team Providers Care Civil Preparedness Officer Name Role Phone Arelis Severino MD Primary Care Provider [phone] Encounters Date Type Department Care Team Description 05/09/2024 8:00 AM EST - 05/09/2024 11:59 PM [facility] Hospital Encounter [facility] CT Scan [address] [place] [phone] Encounter for screening for lung cancer; Cigarette smoker Discharge Disposition: Home or Self Care 04/21/2024 Telephone Lung Screening Program - [address] [place] [address] Velia Salinas [place] Appointment from Last 3 Months Surgical History Surgery Date Site/Laterality Comments OTHER SURGICAL HISTORY 2017 Right PROCEDURE: MS THORACOSCOPY W/LOBECTOMY SINGLE LOBE; COMMENT: RUL lobectomy OTHER SURGICAL HISTORY 2012 PROCEDURE: COLONOSCOPY, SURGICAL Medical History Medical History Date Comments Lung cancer ([facility] V24, [facility] [place] V28) 2018 DX:Lung cancer (HCC); COMMENT: RUL lung cancer - surgical resection Anxiety disorder DX:Anxiety diso rder BPH (benign prostatic hyperplasia) DX:BPH (benign prostatic hyperplasia) CKD (chronic kidney disease) DX: CKD (chronic kidney disease) Diverticulosis DX:Diverticulosi s Emphysema lung ([facility] V24, [facility] V28) DX:Emphysema lung (HCC) GERD (gastroesophageal reflux disease) DX:GERD (gastroesophageal reflux disease) Mixed hyperlipidemia DX:Mixed hy perlipidemia Essential (primary) hypertension DX:Essential (primary) hypertension IFG (impaired fasting glucose) D X:IFG (impaired fasting glucose) 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, [facility] V28) 2017 DX:Large cell neuroendocrin e carcinoma (HCC) Lumbar radiculopathy DX:Lumbar r adiculopathy Personal history of nicotine dependence DX:Personal history of nicotine dependence Tubular adenoma of colon 2012 DX:Tubu lar adenoma of colon Type 2 diabetes mellitus wit hout complications ([facility] V24, [facility] V28) DX:Type 2 max betes mellitus without complications (HCC) COPD (chronic obstructive pu lmonary disease) ([facility] V24, [facility] V28) DX:COPD (chronic o bstructive pulmonary disease) ([facility]) Social History Tobacco Use Types Packs/Day Years Used Date Smoking Tobacco: Every Day Cigarettes 1 65.3 Started: 1959 Smokeless Tobacco: Never Alcohol Use Standard Drinks/Week Comments Not Currently 0 (1 standard drink = 0.6 oz pur e alcohol) Sex and Gender Information Value Date Recorded Sex Assigned at Not on file Legal Sex Male 2:11 AM EST Gender Identity Not on file Sexual Orientation Not on file Obstetrics History Last Filed [...] 04/27/2023 9:53 AM EST Plan of Treatment Health Maintenance Due Date Last Done Comments Diabetes: Annual GFR (Glomerular Filtration Rate) 1950 Diabetes: Annual Foot Exam 1960 Diabetes: Annual Retina Eye Exam 1960 RSV Immunization Adult Patients (1 - Risk 60-74 years 1-dose series) 2010 Abdominal Aortic Aneurysm (AAA) Screen 05/06/2023 Cholesterol Screening (Lipid Panel) 05/06/2023 Colorectal Cancer Screening: Colonoscopy 05/06/2023 Depression Screening 05/06/2023 Falls Risk Assessment 05/06/2023 Hepatitis C Screening 05/06/2023 Medicare Annual Wellness Visit 05/06/2023 Social Influencers of Health Screening 05/06/2023 COVID-19 Vaccine () 12/06/2023 09/04/2021, 09/04/2020, 06/07/2020, Additional history exists Diabetes: Annual Urine Albumin-Creatinine Ratio (uACR) 05/09/2024 Diabetes: Blood Sugar Control Test (HGBA1C) 05/09/2024 12/30/2018 Hypertension/CHF/CAD Annual BMP Blood Test 05/09/2024 Influenza Vaccine (Season Ended) 2024 12/28/2019, 02/17/2018 Lung Cancer Screening (Low Dose CT) 05/09/2025 05/09/2024 DTaP,Tdap,and Td Vaccines (2 - Td or Tdap) 06/17/2028 06/17/2018 Pneumococcal Vaccine: 50+ Years Completed 12/28/2019, 02/17/2018 Zoster Vaccines Completed 03/16/2020, 12/28/2019 HIB Vaccines Aged Out No longer eligi [...] patient's age to complete this topic Meningococcal B Vaccine Aged Out No l onger eligible based on patient's age to complete this topic RSV Immunization Patients Under 20 months Aged Out No longer eligible based on patient's age to complete this topic Varicella Vaccines Aged Out No longer eligible based on patient's age to complete this topic Procedures Procedure Name Priority Date/Time Associated Diagnosis Comments CT LUNG SCREENING Routine 05/09/2024 8:2 7 AM EST Encounter for screening for lung cancer Cigarette smoker from Last 3 Months Results * CT Lung Screening (05/09/2024 8:27 AM EST) Anatomical Region Laterality Modality Chest Computed Tomogra phy 05/11/2024 9:03 AM EST Impressions 05/11/2024 9:06 AM EST No new or suspicious pulmonary nodules. ??Lung RADS 2-benign. ??Recommend continued screening with low-dose chest CT in 12 months. -------- FINAL REPORT -------- Dictated By: SAMANTHA DE LA ROSA Dictated Date: 05/11/2024 09:03 ET Assigned Physician: SAMANTHA DE LA ROSA Reviewed and Electronically Signed By: SAMANTHA DE LA ROSA Signed Date: 05/11/2024 09:06 ET Workstation ID: [id number] Transcribed By: Self Edit Transcribed Date: 05/11/2024 09:03 ET Narrative 05/11/2024 9:06 AM EST PROCEDURE: Chest CT INDICATION: Lung cancer screening, current smoker, 65 pack year smoking history TECHNIQUE: Chest CT without contrast. Multi planar reformats were created and interpreted. The examination was performed utilizing dose reduction techniques. ??Total DLP 105 COMPARISON: ??03/26/2023 FINDINGS: LUNGS/PLEURA: Central airways are patent. ??Right upper lobectomy. ??Emphysema. ??Chronic bronchitis. ??3 mm right middle lobe nodule is stable compared to prior. ??No new or suspicious pulmonary nodules. ??No pleural effusion or pneumothorax. MEDIASTINUM: Thyroid gland is normal. ??No mediastinal or hilar lymphadenopathy. ??Esophagus is normal. ??Cardiac chambers are normal in size. ??Severe coronary artery calcifications. ??No pericardial effusion CHEST WALL: No axillary lymphadenopathy or superficial hematoma. UPPER ABDOMEN:The visualized portions of the upper abdomen are unremarkable. BONES: Bones are normal for age Procedure Note Samantha De La Rosa MD - 05/11/2024 PROCEDURE: Chest CT INDICATION: Lung cancer screening, current smoker, 65 pack year smokinghistory TECHNIQUE: Chest CT without contrast. Multi planar reformats were createdand interpreted. The examination was performed utilizing dose reductiontechniques. Total DLP 105 COMPARISON: 03/26/2023 FINDINGS: LUNGS/PLEURA: Central airways are patent. Right upper lobectomy.Emphysema. Chronic bronchitis. 3 mm right middle lobe nodule is stablecompared to prior. No new or suspicious pulmonary nodules. No pleuraleffusion or pneumothorax. MEDIASTINUM: Thyroid gland is normal. No mediastinal or hilarlymphadenopathy. Esophagus is normal. Cardiac chambers are normal insize. Severe coronary artery calcifications. No pericardial effusion CHEST WALL: No axillary lymphadenopathy or superficial hematoma. UPPER ABDOMEN:The visualized portions of the upper abdomen areunremarkable. BONES: Bones are normal for age IMPRESSION: No new or suspicious pulmonary nodules. Lung RADS 2-benign. Recommendcontinued screening with low-dose chest CT in 12 months. -------- FINAL REPORT -------- Dictated By: SAMANTHA DE LA ROSA Dictated Date: 05/11/2024 09:03 ET Assigned Physician: SAMANTHA DE LA ROSA Reviewed and Electronically Signed By: SAMANTHA DE LA ROSA Signed Date: 05/11/2024 09:06 ET Workstation ID: [id number] Transcribed By: Self Edit Transcribed Date: 05/11/2024 09:03 ET Sarah Stephen MD IMG CT PROCEDURES Final Result from Last 3 Months Insurance MEDICA[place] MEDICARE [place] [employer] [employer] Care Teams Civil Preparedness Officer Relationship Specialty Start Date End Date Arelis Severino MD [address] [place] [address] [place] [phone] PCP - General Internal Medicine 04/21/24
--- OUTSIDE RECORDS SUMMARY | 2024-07-14 15:41 | XMS_ITS | Clinical Summary ---
Author Organization [facility] Address [address] [place] [phone] Phone Care Team Providers Care Zone Supervisor Firearms Name Role Phone Eddie Martins Primary Care Provider [phone] Allergies Active Allergy Reactions Criticality Noted Date [...] 06/25/2020 Gastroesophageal reflux disease 06/25/2020 Hyperlipidemia 06/25/2020 Immunizations Immunization Administration Dates Next Due Influenza Split High [...] Visit [facility] [address] [place] [phone] Rudi Aquino MD [address] [facility] [address] [place] [phone] Health Maintenance Due Date Last Done Comments Colorectal Cancer Screening: Annual FOBT 08/29/1999 Colorectal Cancer Screening: Colonoscopy 08/29/1999 Colorectal Cancer Screening: Sigmoidoscopy 08/29/1999 Diabetes: Hemoglobin A1C 04/07/2024 12/30/2018 Diabetes: Ophthalmology Exam 04/07/2024 Diabetes: Pedal Pulse Checked 04/07/2024 Diabetes: Sensory Foot Exam 04/07/2024 Diabetes: Visual Foot Exam 04/07/2024 Influenza Vaccine (Season Ended) 2024 12/28/2019, 02/17/2018 Pneumococcal Vaccine: 50+ Years Completed 12/28/2019, 02/17/2018 Hepatitis B Vaccine Aged Out No longe r eligible based on patient's age to complete this topic Procedures Procedure Name Priority Date/Time Associated Diagnosis Comments ALBUMIN, URINE, RANDOM Routine 06/30/2024 1:05 PM EDT PROTEIN / CREATININE RATIO, URINE Routine 06/30/2024 1:05 PM EDT Stage 3b chronic kidney disease (HCC) Renal osteodystrophy Hypertensive chronic kidney disease URINALYSIS WITH MICROSCOPIC Routine 06/30/2024 1:05 PM EDT Stage 3b chronic kidney disease (HCC) Renal osteodystrophy Hypertensive chronic kidney disease PTH, INTACT (HC) Routine 06/30/2024 1:00 PM EDT ELECTROLYTE PANEL Routine 06/30/2024 1:0 0 PM EDT CBC AND DIFFERENTIAL Routine 06/30/2024 1:00 PM EDT CALCIUM Routine 06/30/2024 1:00 PM EDT Stage 3b chronic kidney disease (HCC) Renal osteodystrophy Hypertensive chronic kidney disease ALBUMIN Routine 06/30/2024 1:00 PM EDT Stage 3b chronic kidney disease (HCC) Renal osteodystrophy Hypertensive chronic kidney disease MAGNESIUM Routine 06/30/2024 1:00 PM EDT Stage 3b chronic kidney disease (HCC) Renal osteodystrophy Hypertensive chronic kidney disease PHOSPHATE ( PHOSPHORUS) Routine 06/30/2024 1:00 PM EDT Stage 3b chronic kidney disease (HCC) Renal osteodystrophy Hypertensive chronic kidney disease VITAMIN D 25 HYDROXY Routine 06/30/2024 1:00 PM EDT Stage 3b chronic kidney disease (HCC) Renal osteodystrophy Hypertensive chronic kidney disease HEMOGLOBIN A1C Routine 12/30/2018 12:42 PM EDT from Last 3 Months or Most Recently Relevant to Health Maintenance Results * Protein, Total, Random Urine w/Creatinine (Protein/Creat Ratio) (06/30/2024 1:05 PM EDT) Protein Urine Random <7 <12 mg/dL See order comments Protein/Creatin ine Ratio, Urine TNP <0.2 See order comments Comment: Unable to calculate urine protein creatinine ratio due to low creatinine or protein result. Urine (Urine, Clean Catch) 06/30/2024 1:05 PM EDT 06/30/2024 1:05 PM EDT us Rudi Aquino MD LAB URINE ORDERABLES Final Re sult [place] See order comments [place] [address] * Albumin, urine, random (06/30/2024 1:05 PM EDT) Creatinine, Urine 121.91 mg/dL Se e order comments Urine Microalbumin 6.0 mg/L See order comments Microalbumin/Crea tinine Ratio 4.9 <30 ug/mg cr See order comments Comment: ?Albumin/Creatinine Ratio Reference Ranges: ?Normal: < 30 ug/mg creatinine ?Microalbuminuria: ??30 - 300 ug/mg creatinine Clinical Albuminuria: ??> 300 ug/mg creatinine 06/30/2024 1:05 PM EDT 06/30/2024 1:05 PM EDT us Rudi Aquino MD LAB URINE ORDERABLES Final Re sult Performing Organization Address [facility] de Phone Number [place] See order comments [place] [address] * Urinalysis with microscopic (06/30/2024 1:05 PM EDT) Color Urine Yellow See orde r comments Appearance Urine Clear See order comments pH Urine 5.5 5.0 - 9.0 See order comments Glucose Urine Negative Negative mg/dL See order comments Blood, Urine Negative Negative See ord er comments Specific [place] Urine 1.015 1.005 - 1.025 See order comments Protein Urine Negative Neg-Trace mg/dL See order comments Ketones, Urine Negative Negative mg/dL See order comments Nitrite, Urine Negative Negative See o rder comments Leukocyte Esterase Urine Negative Negative See order comments RBC, Urine 0-2 0 - 2 /HPF See orde r comments WBC 0-5 0 - 5 /HPF See order comments Squamous Epithelial, Urine 0-2 0 - 2 /HPF See order comments Bacteria, Urine None Seen None Seen See order comments Hyaline Casts, Urine 0-2 0 - 2 /LPF See order comments Urine (Urine, Clean Catch) 06/30/2024 1:05 PM EDT 06/30/2024 1:05 PM EDT Rudi Aquino MD LAB URINE ORDERABLES Final Re sult Performing Organization Address [facility] de Phone Number [place] See order comments [place] [address] * (ABNORMAL) PTH, Intact (06/30/2024 1:00 PM EDT) Pathologist [facility] Parathyroid Hormone, Intact 91.4(H) 8.7 - 77.1 pg/mL See order comments 06/30/2024 1:00 PM EDT 06/30/2024 1:00 PM EDT Rudi Aquino MD LAB [id number] SOLICITED RESULTS Final Result Performing Organization Address [facility] de Phone Number [place] See order comments [place] [address] * Vitamin D 25 Hydroxy (06/30/2024 1:00 PM EDT) Vitamin D, 25-Hydroxy 36.1 >30 ng/mL See order comments Comment: Health Based Reference Values* < 20 ??ng/mL ??Deficient 20-30 ng/mL ??Insufficient > 30 ??ng/mL ??Sufficient *[place] JAUREGUI. N Engl J Med. 2007;357:266-280 There is no well-established upper level of normal vitamin D levels. Some laboratories use 50 ng/mL as an upper limit of normal. However, toxicity is patient-dependent and may occur at any level. Careful correlation with the patient's presentation is necessary and, if there is concern for vitamin D toxicity, treatment should be considered irrespective of the serum level. Care must be taken in interpreting Vitamin D results from different laboratories and methodologies. ??Published data demonstrated that results from patients undergoing hemodialysis may show a negative bias when tested with various automated 25-OH vitamin D assays when compared to LC-MS/MS. When testing samples from patients whose predominant form of Vitamin D is Vitamin D2, such as patients receiving Vitamin D2 supplementation, results that are subtherapeutic should be confirmed with another method such as LC-MS/MS. Blood (Blood, Venous) 06/30/2024 1:00 PM EDT 06/30/2024 1:00 PM EDT us Rudi Aquino MD LAB BLOOD ORDERABLES Final Re sult [place] See order comments [place] [address] * (ABNORMAL) CBC and Differential (06/30/2024 1:00 PM EDT) WBC 6.9 4.8 - 10.8 X10*3/uL See order comments RBC 4.57(L) 4.60 - 5.80 X10*6/uL See order comments Hgb 13.6(L) 14.0 - 18.0 g/dl See order comments Hematocrit 42.0 42.0 - 52.0 % See order comments MCV 91.9 80.0 - 98.0 fL See order comments MCH 29.8 27.0 - 33.0 pg See order comments MCHC 32.4 31.0 - 36.0 g/dl See order comments RDW 14.9 11.0 - 16.0 % See order comments Platelets 202 160 - 400 X10*3/uL See order comments MPV 10.9 9.4 - 12.4 fL See order comments Neutrophils % Auto 58.7 45 - 73 % See order comments Immature Granulocytes 0.3 0.0 - 0.4 % See order comments Lymphocytes Relative 23.0 20 - 40 % See order comments Monocytes 11.6(H) 2 - 11 % See order comments Eosinophils Relative 5.4(H) 0 - 4 % See order comments Basophils Relative 1.0 0 - 2 % See order comments nRBC Count 0.0 0.0 - 0.2 /100WBC See order comments Neutrophils Absolute 4.0 2.0 - 8.3 x10*3/uL See order comments Immature Grans (Absolute) 0.02 0.00 - 0.03 X10*3/uL See order comments Lymphocytes Absolute 1.6 1.2 - 4.9 X10*3/uL See order comments Monocytes Absolute 0.8 0.1 - 1.2 X10*3/uL See order comments Eosinophils Absolute 0.4 0.0 - 0.4 X10*3/uL See order comments Basophils Absolute 0.1 0.0 - 0.2 X10*3/uL See order comments NRBC Absolute 0.000 0.0 - 0.012 X10*3/uL See order comments 06/30/2024 1:00 PM EDT 06/30/2024 1:00 PM EDT Rudi Aquino MD LAB BLOOD ORDERABLES Final Re sult [place] See order comments [place] [address] * Phosphorus (06/30/2024 1:00 PM EDT) Phosphorus, Serum 2.8 2.7 - 4.5 mg/dL See order comments Blood (Blood, Venous) 06/30/2024 1:00 PM EDT 06/30/2024 1:00 PM EDT us Rudi Aquino MD LAB BLOOD ORDERABLES Final Re sult Performing Organization Address [facility] de Phone Number [place] See order comments [place] [address] * Magnesium (06/30/2024 1:00 PM EDT) Magnesium 2.2 1.6 - 2.6 mg/dL See order comments Blood (Blood, Venous) 06/30/2024 1:00 PM EDT 06/30/2024 1:00 PM EDT us Rudi Aquino MD LAB BLOOD ORDERABLES Final Re sult Performing Organization Address [facility] Phone Number [place] See order comments [place] [address] * Calcium (06/30/2024 1:00 PM EDT) Calcium 8.9 8.4 - 10.2 mg/dL See order comments Blood (Blood, Venous) 06/30/2024 1:00 PM EDT 06/30/2024 1:00 PM EDT us Rudi Aquino MD LAB BLOOD ORDERABLES Final Re sult Performing Organization Address [facility] Phone [facility] See order comments [place] [address] * Albumin (06/30/2024 1:00 PM EDT) Albumin 3.9 3.5 - 5.0 g/dL See order comments Blood (Blood, Venous) 06/30/2024 1:00 PM EDT 06/30/2024 1:00 PM EDT us Rudi Aquino MD LAB BLOOD ORDERABLES Final Re sult Performing Organization Address [facility] de Phone Number [place] See order comments [place] [address] * Electrolyte panel (06/30/2024 1:00 PM EDT) Sodium 140 135 - 145 mmol/L See order comments Potassium 3.9 3.3 - 5.1 mmol/L See order comments Chloride 108 96 - 108 mmol/L See order comments Bicarbonate (CO2) 24 22 - 29 mmol/L See order comments Anion Gap 12 12 - 20 See order comments 06/30/2024 1:00 PM EDT 06/30/2024 1:00 PM EDT us Rudi Aquino MD LAB BLOOD ORDERABLES Final Re sult [place] See order comments [place] [address] * Hemoglobin A1c (12/30/2018 12:42 PM EDT) [...] average glucose, using the formula of the [id number] Average Glucose study (ADAG), Diabetes Care, Vol.31,#8, Nov. 2007 12/30/2018 12:4 2 PM EDT us Arelis Severino MD LAB BLOOD ORDERABLES Final Result Performing Organization Address City/[facility]/ZIP Co de Phone Number [place] from Last 3 Months or Most Recently Relevant to Health Maintenance Insurance Medicaid [place] Member Subscriber Plan / Payer (Ef fective 2019-Present) Name:Arnoldo Brooks Jr. Relation to Subscriber:Self Name:Arnoldo Brooks Jr. Payer ID:Not on file Group ID:Not on file Type:Not on file Address: [address] [place] [employer] Care Teams Zone Supervisor Firearms Relationship Specialty Start Date End Date Eddie Martins [address] [place] [id number] PCP - General Family Medicine 04/07/24
== END 2024-07-14 13:01 | disposition home or self-care (01) ==
LOC: HO.HMGCX 13:00
PROVIDERS: PCP Family Medicine; Visit Provider Urology
DX: C64.9 Malignant neoplasm of unspecified kidney, except renal pelvis (principal)
CPT/HCPCS: 76775

== ENCOUNTER → 2024-07-14 13:02 | Outpatient (BNV) | payer MEDICARE, MEDICAID, SELFPAY | PROVIDERS: PCP Family Medicine; Visit Provider Radiology Diagnostic Radiology | DX: C64.2 Malignant neoplasm of left kidney, except renal pelvis (principal); N28.1 Cyst of kidney, acquired; N20.0 Calculus of kidney | CPT/HCPCS: 76775 ==

== ENCOUNTER 2024-08-17 09:04 | Outpatient (AMB) | payer MEDICARE, MEDICAID, SELFPAY ==
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
--- OUTSIDE RECORDS SUMMARY | 2024-08-17 09:30 | XMS_ITS | Encounter Summary ---
Author Organization [facility] Address [address] [facility] [address] [place] [address] Phone Care Team Providers Care Shrimp Packer Name Role Phone Eddie Martins Primary Care Provider [phone] Encounter Details Date Type Department Care Team (Late Contact Info) Description 10/27/2023 Office Communication [facility] [address] [facility] [address] [place] [phone] Mee Aquino [address] [place] [phone] Social History Tobacco Use Types Packs/Day [...] don't see results. Pls call him at [phone]. TY documented in this encounter Plan of Treatment Upcoming Encounters Date Type Department Care Team (Late Contact Info) Description 02/27/2025 3:15 PM EST Office Visit [facility] [address] [place] [phone] Rudi Aquino MD [address] [facility] [address] [place] [address] documented as of this encounter Visit Diagnoses Not on filedocumented in this encounter Care Teams Shrimp Packer Relationship Specialty Start Date End Date Eddie Martins [address] [place] [phone] PCP - General Family Medicine 04/07/24 documented as of this encounter
--- OUTSIDE RECORDS SUMMARY | 2024-08-17 09:30 | XMS_ITS ---
Author Organization [facility] Address [address] [place] [phone] Care Team Providers Care Director Of Automation Name Role Phone Eddie Martins M.D. Primary [...] Problem Status W/U Status Risk Notes Problem [id number] Colon cancer screening (Z12.11) Active confirmed Problem [id number] correction (current) use of oral hypoglycemic drugs (Z79.84) Active confirmed Vital Signs Temperature 98.0 degrees Fahrenheit 03/21/20 24 Blood pressure systolic 000 mm Hg 03/21/20 24 Blood pressure diastolic 00 mm Hg 024 Height 68.50 in 03/21/2024 Weight 175 lb 8 oz lbs 03/21/2024 BMI 26.29 kg/m2 03/21/2024 Encounters Encounter Location Date Provider Diagnosis [facility] [address] [place] [address] 03/21/2024 Carlitos Enriquez Jr Colon cancer screening Z12.11 and correction (current) use of oral hypoglycemic drugs Z79.84 [...] person benefits and agrees to proceed. 03/21/2024 long term care phlebotomist (current) use of oral hypoglycemic drugs (ICD-10 [...] Notes * TIM CASTROB:[birth year] (73 yo M)Acc No.[id number]:03/21/2024 Progress Notes Patient:?TIM CASTOR Provider:?Carlitos Enriquez MD :1950???Age:73 Y???Sex:Male Alfredo e:03/21/2024 Address:[address] [place], [place] [address] Pcp:Arelis Severino Subjective: * Chief Complaints: * [...] or edema.?PSYCH:?cognitive function intact.? Assessment: * Assessment: 1.?long term care phlebotomist (current) use o f oral hypoglycemic drugs [...] Date:?1 05/22/2023 Generated for Carlos Manuel santiago/Abad/Oniitting on:?08/17/2024 09:30 AM EDT History and Physical Notes * HPI [...]
--- OUTSIDE RECORDS SUMMARY | 2024-08-17 09:30 | XMS_ITS | Clinical Summary ---
Author Organization [facility] [address] [facility] Address [address] [place] [address] Phone Care Team Providers Care Health Information Management Director Name Role Phone Arelis Severino MD Primary Care Provider [phone] Surgical History Surgery Date Site/Laterality Comments OTHER SURGICAL HISTORY 2017 Right PROCEDURE: DC THORACOSCOPY W/LOBECTOMY SINGLE LOBE; COMMENT: RUL lobectomy OTHER SURGICAL HISTORY 2012 PROCEDURE: COLONOSCOPY, SURGICAL Medical History Medical History Date Comments Lung cancer ([facility] V24, [facility] V28) 2017 DX:Lung cancer (HCC); COMMENT: RUL lung cancer - surgical resection Anxiety disorder DX:Anxiety diso rder BPH (benign prostatic hyperplasia) DX:BPH (benign prostatic hyperplasia) CKD (chronic kidney disease) DX: CKD (chronic kidney disease) Diverticulosis DX:Diverticulosi s Emphysema lung ([facility] V24, [facility] V28) DX:Emphysema lung (HCC) GERD (gastroesophageal reflux disease) DX:GERD (gastroesophageal reflux disease) Mixed hyperlipidemia DX:Mixed hy perlipidemia Essential (primary) hypertension DX:Essential (primary) hypertension IFG (impaired fasting glucose) D X:IFG (impaired fasting glucose) 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, [facility] V28) 2017 DX:Large cell neuroendocrin e carcinoma (HCC) Lumbar radiculopathy DX:Lumbar r adiculopathy Personal history of nicotine dependence DX:Personal history of nicotine dependence Tubular adenoma of colon 2012 DX:Tubu lar adenoma of colon Type 2 diabetes mellitus wit hout complications ([facility] V24, [facility] V28) DX:Type 2 max betes mellitus without complications ([facility]) COPD (chronic obstructive pu lmonary disease) ([facility] V24, [facility] V28) DX:COPD (chronic o bstructive pulmonary disease) ([facility]) Social History Tobacco Use Types Packs/Day Years Used Date Smoking Tobacco: Every Day Cigarettes 1 65.4 Started: 1959 Smokeless Tobacco: Never Alcohol Use [...] Influencers of Health Screening 05/06/2023 COVID-19 Vaccine ( season) 2023 09/04/2021, 09/04/2020, 06/07/2020, Additional history exists Diabetes: [...] cancer Cigarette smoker from Last 3 Months or Most Recently Relevant to Health Maintenance Results * CT Lung Screening (05/09/2024 8:27 [...] Signed Date: 05/11/2024 09:06 ET Workstation ID: [id number] Transcribed By: Self Edit Transcribed Date: 05/11/2024 [...] Signed Date: 05/11/2024 09:06 ET Workstation ID: [id number] Transcribed By: Self Edit Transcribed Date: 05/11/2024 09:03 ET Sarah Stephen MD IMG CT PROCEDURES Final Result from Last 3 Months or Most Recently Relevant to Health Maintenance Insurance [place] MEDIC[place] [employer] Care Teams Health Information Management Director Relationship Specialty Start Date End Date Arelis Severino MD [address] [place] [address] [place] [address] PCP - General Internal Medicine 04/21/24
--- OUTSIDE RECORDS SUMMARY | 2024-08-17 09:30 | XMS_ITS ---
Author Organization [facility] Address [address] [place] [address] Care Team Providers Care Plant Health Care Technician Name Role Phone Eddie Martins M.D. Primary Care Provider Carlitos Begum Jr Unavailable [phone] REASON FOR VISIT screening Encounters Encounter Location Date Provider Diagnosis [facility] [place] [address] [place] [id number] 05/03/2024 Carlitos Enriquez Jr Colon cancer screening Z12.11 Assessments Encounter Date Diagnosis (ICD Code) Assessment Notes Treatment Notes Treatment Clinical Notes Section Notes 05/03/2024 Colon cancer screening (ICD-10 - Z12.11) Plan Of Treatment No Information Progress Notes * TIM CASTRO JrDOB:[birth year] (73 yo M)Acc No.[id number]:05/03/2024 COLON WITH MAC Patient:?TIM CASTRO Provider:?Carlitos Enriquez MD :1950???Age:73 Y???Sex:Male Alfredo e:05/03/2024 Address:[facility] [place] ID-[id number] Pcp:Eddie Martins M.D. Subjective: * Chief Complaints: * ???1. Screening. * Medical History:? Objective: * Vitals:? Assessment: * Assessment: 1.?Colon cancer screening - Z12.11 (Primary)??? Plan: * Treatment: * Procedure Codes:?24203 DIAGN OSTIC COLONOSCOPY, 0529F INTRVL 3+YRS PTS CLNSCP DOCD, 0528F RCMND FLW-UP 10 YRS DOCD * * The named appointment provid er may or may not be the originator of this progress note, and it is not deemed complete until electronically signed by the appointment provider. Sign off status: Pending * Provider:?Carlitos Enriquez MD Date:?0 05/03/2024 Generated for Carlos Manuel santiago/Abad/Oniitting on:?08/17/2024 09:30 AM EDT
--- OUTSIDE RECORDS SUMMARY | 2024-08-17 09:30 | XMS_ITS | Clinical Summary ---
Author Organization [facility] Address [address] [place] [phone] Phone Care Team Providers Care Cashier And Salesperson Name Role Phone Eddie Martins Primary Care Provider [phone] Allergies Active Allergy Reactions Criticality Noted Date [...] Encounters Date Type Department Care Team Description 08/01/2024 3:00 PM EDT Office Visit [facility] [address] [place] [address] Rudi Aquino MD Stage 3b chronic kidney disease (HCC) (Primary Dx); Renal mass; Hypertensive chronic kidney disease; Renal osteodystrophy from Last 3 Months Immunizations Immunization Administration Dates Next Due Influenza [...] Sign Reading Time Taken Comments Blood Pressure 130/70 08/01/2024 2:56 PM EDT Pulse 81 08/01/2024 2:56 PM EDT Temperature - - Respiratory Rate - - Oxygen Saturation 95% 08/01/2024 2:56 PM EDT Inhaled Oxygen Concentration - - Weight 77.7 kg (171 lb 3.2 oz) 08/01/2024 2:56 P M EDT Height 175.3 cm (5' 9 ) 04/11/2019 12:00 PM EST Body Mass Index 25.28 04/11/2019 12:00 PM EST Plan of Treatment Upcoming Encounters Date Type Department Care Team (Late st Contact Info) Description 02/27/2025 3:15 PM EST Office Visit [facility] [address] [place] [phone] Rudi Aquino MD [address] [facility] [address] [place] [address] Health Maintenance Due Date Last Done Comments Colorectal Cancer Screening: Annual FOBT 08/29/1999 Colorectal Cancer Screening: Colonoscopy 08/29/1999 Colorectal Cancer Screening: Sigmoidoscopy 08/29/1999 Diabetes: Hemoglobin A1C 04/07/2024 12/30/2018 Diabetes: Ophthalmology Exam 04/07/2024 Diabetes: Pedal Pulse Checked 04/07/2024 Diabetes: Sensory Foot Exam 04/07/2024 Diabetes: Visual Foot Exam 04/07/2024 Influenza Vaccine (Season Ended) 2024 12/28/2019, 02/17/2018 Pneumococcal Vaccine: 50+ Years Completed 12/28/2019, 02/17/2018 Pneumococcal Vaccine: Peds ( 0 to 5 Years) and At-Risk Patients (6 to 49 Years) Discontinued 12/28/2019, 02/17/2018 Hepatitis B Vaccine Aged Out [...] order comments [place] [address] * Albumin, urine, random (06/30/2024 1:05 PM [...] ORDERABLES Final Re sult Performing Organization Address [facility] Co de Phone Number See order comments [place] [address] * Urinalysis with microscopic (06/30/2024 1:05 PM EDT) Color Urine Yellow See orde r comments Appearance Urine Clear See order comments pH Urine 5.5 5.0 - 9.0 See order comments Glucose Urine Negative Negative mg/dL See order comments Blood, Urine Negative Negative See ord er comments Specific [place] Urine 1.015 1.005 - 1.025 See order [...] ORDERABLES Final Re sult Performing Organization Address [facility] Co de Phone Number See order comments [place] [address] * (ABNORMAL) PTH, Intact (06/30/2024 1:00 PM EDT) Parathyroid Hormone, Intact 91.4(H) 8.7 - 77.1 pg/mL See order comments 06/30/2024 1:00 PM EDT 06/30/2024 1:00 PM EDT Rudi Aquino MD LAB [id number] SOLICITED RESULTS Final Result Performing Organization Address [facility] de Phone Number [place] See order comments [place] [address] * Vitamin D 25 Hydroxy (06/30/2024 1:00 [...] ORDERABLES Final Re sult Performing Organization Address [facility] Co de Phone Number [place] See order comments [place] [address] * (ABNORMAL) CBC and Differential (06/30/2024 1:00 [...] ORDERABLES Final Re sult Performing Organization Address [facility] de Phone Number [place] See order comments [place] [address] * Phosphorus (06/30/2024 1:00 PM EDT) Phosphorus, Serum 2.8 2.7 - 4.5 mg/dL See order comments Blood (Blood, Venous) 06/30/2024 1:00 PM EDT 06/30/2024 1:00 PM EDT us Rudi Aquino MD LAB BLOOD ORDERABLES Final Re sult Performing Organization Address [facility] Phone Number [place] See order comments [place] [address] * Magnesium (06/30/2024 1:00 PM EDT) Magnesium 2.2 1.6 - 2.6 mg/dL See order comments Blood (Blood, Venous) 06/30/2024 1:00 PM EDT 06/30/2024 1:00 PM EDT us Rudi Aquino MD LAB BLOOD ORDERABLES Final Re sult Performing Organization Address [facility] de [facility] See order comments [place] [address] * Calcium (06/30/2024 1:00 PM EDT) Calcium 8.9 8.4 - 10.2 mg/dL See order comments Blood (Blood, Venous) 06/30/2024 1:00 PM EDT 06/30/2024 1:00 PM EDT us Rudi Aquino MD LAB BLOOD ORDERABLES Final Re sult Performing Organization Address [facility] de Phone Number [facility] See order comments [place] [address] * Albumin (06/30/2024 1:00 PM EDT) Albumin 3.9 3.5 - 5.0 g/dL See order comments Blood (Blood, Venous) 06/30/2024 1:00 PM EDT 06/30/2024 1:00 PM EDT Rudi Aquino MD LAB BLOOD ORDERABLES Final Re sult [place] See order comments [place] [address] * Electrolyte panel (06/30/2024 1:00 PM EDT) [...] ORDERABLES Final Re sult Performing Organization Address [facility] Co de Phone Number [place] See order comments [place] [address] * Hemoglobin A1c (12/30/2018 12:42 PM EDT) Hemoglobin A1C 6.4 % [facility] Comment: ?Hemoglobin A1C Reference Range ? Adults: [...] average glucose, using the formula of the Q8T-Qifsjen Average Glucose study (ADAG), Diabetes Care, Vol.31,#8, Nov. 2007 12/30/2018 12:4 2 PM EDT us Arelis Severino MD LAB BLOOD ORDERABLES Final Result [place] from Last 3 Months or Most Recently Relevant to Health Maintenance [place] [employer] [place] Care Teams Cashier And Salesperson Relationship Specialty Start Date End Date Eddie Martins [address] [place] [phone] PCP - General Family Medicine 04/07/24
--- OUTSIDE RECORDS SUMMARY | 2024-08-17 09:30 | XMS_ITS | Patient Health Record ---
Author Organization [facility] Address [address] [place] [address] Care Team Providers Care Highway Design Engineer Name Role Phone Eddie Martins M.D. Primary Care Provider Carlitos Begum Jr Unavailable [phone] Allergies Allergen (clinical drug ingredient) Drug/Non Drug Allergy documented on EMR Reaction Allergy Type Onset Date Status sulfamethoxazole / trimethoprim Bactrim Unknown Drug Allergy Active Results Component Value Reference Range Notes Glucose, Whole Blood Reviewed date:05/04/2024 07:50:22 AM Interpretation: Performing Lab:[facility], [address] [place] [phone] Notes/Report: Glucose, Whole Blood 159 60-115 mg/dL METER # : [id number] Reason For Referral Referring Provider First Name Arelis Referring Provider Last Name Mere Referring Provider Speciality Internal M edicine Referred Organization [facility] Referred Provider Carlitos Enriquez Jr Referred Address [address],[place], [place],[address], Referred Provider Specialty Gastroentero logy General Notes Cecy DEAN Daw n 02/09/2024 10:20:41 AM >REQUESTED A [facility] REFERRAL FROM DR RODRÍGUEZ'S OFFICE FOR VISIT [...] Problem Status W/U Status Risk Notes Problem [id number] Colon cancer screening (Z12.11) Active confirmed Problem 71526779 Rectal bleeding (K62.5) Active confirmed Problem [id number] 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) use of oral hypoglycemic drugs (Z79.84) Active confirmed Vital Signs Temperature 98.0 degrees Fahrenheit 03/21/2024 Blood pressure diastolic 00 mm Hg 03/21/2024 Height 68.50 in 03/21/2024 Blood pressure systolic 000 mm Hg 03/21/2024 Weight 175 lb 8 oz lbs 03/21/2024 BMI 26.29 kg/m2 03/21/2024 Encounters Encounter Location Date Provider Diagnosis [facility] [address], [place] [id number] 05/03/2024 Carlitos Enriquez Jr Colon cancer screening Z12.11 [facility] [address] [place] [address] 03/21/2024 Carlitos Enriquez Jr Colon cancer screening Z12.11 and 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) use of oral hypoglycemic drugs Z79.84 [...] person benefits and agrees to proceed. 03/21/2024 long-term (current) use of oral hypoglycemic [...] Insured Coverage Start Date Coverage End Date [facility] [address] [place] [address] [id number] TIM CASTRO Self - patient is the insured MEDICAID OF [facility] [address] [place] [address] [id number] TIM CASTRO Self - patient is the [...]
== END 2024-08-17 10:11 | disposition home or self-care (01) ==
LOC: HO.HUSH 09:04
PROVIDERS: PCP Family Medicine; Visit Provider Urology
DX: N40.0 Benign prostatic hyperplasia without lower urinary tract symptoms (principal); C64.9 Malignant neoplasm of unspecified kidney, except renal pelvis; N52.01 Erectile dysfunction due to arterial insufficiency; Z13.9 Encounter for screening, unspecified
CPT/HCPCS: 99213; G2211

== ENCOUNTER → 2024-08-17 09:04 | Outpatient (BNVA) | payer MEDICARE, MEDICAID, SELFPAY | PROVIDERS: PCP Family Medicine; Visit Provider Urology | DX: N40.1 Benign prostatic hyperplasia with lower urinary tract symptoms (principal); N52.01 Erectile dysfunction due to arterial insufficiency; N13.8 Other obstructive and reflux uropathy; R39.12 Poor urinary stream; I10 Essential (primary) hypertension; C64.9 Malignant neoplasm of unspecified kidney, except renal pelvis | CPT/HCPCS: 81003; 99212 ==

== ENCOUNTER 2024-09-06 06:43 | Emergency (ER) | payer MEDICARE, MEDICAID, SELFPAY ==
--- NOTE | ~2024-09-06 | XR_ITS ---
CLINICAL HISTORY: can not walk 3 view right foot Comparison: None Findings: No fractures or dislocations. No significant loss of joint space, osteophytes, or erosions. No ankle effusion. No radiopaque foreign body. There is calcific achilles tendinitis. IMPRESSION: 1. No acute findings. Calcific Achilles insertional tendinitis. This document has been electronically signed by: Liam West MD on 09/06/2024 08:15:45
[2024-09-06 06:50] VITALS: BP 152/65; PULSE 84; RESP 20; TEMP 36.3; O2SAT 98; BMI 24.8
--- NOTE | 2024-09-06 07:25 | PC.NURSE ---
Pt brought to room in w/c due to pain when ambulating. VSS right heel edematous and slightly red and warm to touch. Pt states no injury, spontaneously painful upon waking.. No other ocmplaints NAD.
[2024-09-06 07:40] LABS: MANUAL DIFF FLAG NO
[2024-09-06 07:41] LABS: Basophils Absolute Auto 0.1 X10*3/uL (0.0-0.2); Basophils Percent Auto 0.8 % (0-2); Eosinophils Absolute Auto 0.2 X10*3/uL (0.0-0.4); Eosinophils Percent Auto 2.4 % (0-4); Hematocrit 43.3 % (42.0-52.0); Hemoglobin 14.4 g/dl (14.0-18.0); Imm Gran Abs Auto 0.03 X10*3/uL (0.00-0.03); Imm Gran Pct Auto 0.3 % (0.0-0.4); Lymphocytes Absolute Auto 1.7 X10*3/uL (1.2-4.9); Lymphocytes Percent Auto 17.8 % (20-40); Mean Corpuscular HGB Conc 33.3 g/dl (31.0-36.0); Mean Corpuscular Hemoglobin 30.3 pg (27.0-33.0); Mean Corpuscular Volume 91.2 fL (80.0-98.0); Mean Platelet Volume 9.6 fL (9.4-12.4); Monocytes Absolute Auto 0.9 X10*3/uL (0.1-1.2); Monocytes Percent Auto 8.8 % (2-11); Neutrophils Absolute Auto 6.8 x10*3/uL (2.0-8.3); Neutrophils Percent Auto 69.9 % (45-73); Platelet Count 196 X10*3/uL (160-400); Red Blood Count 4.75 X10*6/uL (4.60-5.80); Red Cell Distribution Width 14.3 % (11.0-16.0); White Blood Count 9.7 X10*3/uL (4.8-10.8)
[2024-09-06 07:55] LABS: Alanine Aminotransferase 10 U/L (0-40); Albumin Level 4.2 g/dL (3.5-5.0); Alkaline Phosphatase 79 U/L (39-117); Anion Gap 13 (12-20); Aspartate Amino Transferase 14 U/L (5-37); Bilirubin Total 0.5 mg/dL (0.0-1.0); Blood Urea Nitrogen 28 mg/dL (9-16); Calcium 9.5 mg/dL (8.4-10.2); Carbon Dioxide 24 mmol/L (22-29); Chloride 107 mmol/L (96-108); Creatinine Clr Calc Pharmacy 33.5; Estimated Glomerular Filt Rate 34; Glucose Random 140 mg/dL (60-115); Potassium 4.2 mmol/L (3.3-5.1); Sodium 140 mmol/L (135-145)
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
--- OUTSIDE RECORDS SUMMARY | 2024-09-06 08:07 | XMS_ITS | Clinical Summary ---
Author Organization [facility] Address [address] [place] [phone] Phone Care Team Providers Care 3D Modeler Name Role Phone Eddie Martins Primary Care Provider [phone] Allergies Active Allergy Reactions Criticality Noted Date [...] Office Visit [facility] [address] [place] [address] Rudi Aquino [...] Visit [facility] the [address] [place] [id number] Rudi Aquino MD [address] [facility] [address] [place] [address] Health Maintenance Due Date Last [...] to low creatinine or protein result. Urine specimen (specimen) Urine specimen obtained by clean catch procedure / Unknown 06/30/2024 1:05 PM EDT 06/30/2024 1:05 PM EDT us Rudi Aquino MD LAB URINE ORDERABLES Final Re sult [place] See order comments [place] [address] * Albumin, urine, random (06/30/2024 1:05 PM [...] ORDERABLES Final Re sult Performing Organization Address [facility] de Phone Number [place] See order comments [place] [address] * Urinalysis with microscopic (06/30/2024 1:05 PM EDT) Color Urine Yellow See orde r comments Appearance Urine Clear See order comments pH Urine 5.5 5.0 - 9.0 See order comments Glucose Urine Negative Negative mg/dL See order comments Blood, Urine Negative Negative See ord er comments Specific [place] Urine 1.015 1.005 - 1.025 See order [...] - 2 /LPF See order comments Urine specimen (specimen) Urine specimen obtained by clean catch procedure / Unknown 06/30/2024 1:05 PM EDT 06/30/2024 1:05 PM EDT Rudi Aquino MD LAB URINE ORDERABLES Final Re sult Performing Organization Address [facility] de Phone Number [place] See order comments [place] [address] * (ABNORMAL) PTH, Intact (06/30/2024 1:00 PM EDT) Parathyroid Hormone, Intact 91.4(H) 8.7 - 77.1 pg/mL See order comments 06/30/2024 1:00 PM EDT 06/30/2024 1:00 PM EDT Rudi Aquino MD LAB [id number] SOLICITED RESULTS Final Result Performing Organization Address [facility] Co de Phone Number [place] See order comments [place] [address] * Vitamin D 25 Hydroxy (06/30/2024 1:00 [...] with another method such as LC-MS/MS. Blood specimen (specimen) Venous blood / Unknown 06/30/2024 1:00 PM EDT 06/30/2024 1:00 PM EDT Rudi Aquino MD LAB BLOOD ORDERABLES Final Re sult Performing Organization Address [facility]/ZIP Co de Phone Number AGNIESZKAMIREYA See order comments [place] [address] * (ABNORMAL) CBC and Differential (06/30/2024 1:00 [...] ORDERABLES Final Re sult Performing Organization Address [facility] Phone Number QU[place] See order comments [place] [address] * Phosphorus (06/30/2024 1:00 PM EDT) Phosphorus, Serum 2.8 2.7 - 4.5 mg/dL See order comments Blood specimen (specimen) Venous blood / Unknown 06/30/2024 1:00 PM EDT 06/30/2024 1:00 PM EDT us Rudi Aquino MD LAB BLOOD ORDERABLES Final Re sult Performing Organization Address [facility] Phone Number [place] See order comments [place] [address] * Magnesium (06/30/2024 1:00 PM EDT) Magnesium 2.2 1.6 - 2.6 mg/dL See order comments Blood specimen (specimen) Venous blood / Unknown 06/30/2024 1:00 PM EDT 06/30/2024 1:00 PM EDT us Rudi Aquino MD LAB BLOOD ORDERABLES Final Re sult Performing Organization Address [facility] Phone Number [place] See order comments [place] [address] * Calcium (06/30/2024 1:00 PM EDT) Calcium 8.9 8.4 - 10.2 mg/dL See order comments Blood specimen (specimen) Venous blood / Unknown 06/30/2024 1:00 PM EDT 06/30/2024 1:00 PM EDT us Rudi Aquino MD LAB BLOOD ORDERABLES Final Re sult Performing Organization Address [facility] Phone Number [place] See order comments [place] [address] * Albumin (06/30/2024 1:00 PM EDT) Albumin 3.9 3.5 - 5.0 g/dL See order comments Blood specimen (specimen) Venous blood / Unknown 06/30/2024 1:00 PM EDT 06/30/2024 1:00 PM EDT Rudi Aquino MD LAB BLOOD ORDERABLES Final Re sult Performing Organization Address [facility] Co de Phone Number [place] See order comments [place] [address] * Electrolyte panel (06/30/2024 1:00 PM EDT) [...] ORDERABLES Final Re sult Performing Organization Address [facility] de Phone Number [place] See order comments [place] [address] * Hemoglobin A1c (12/30/2018 12:42 PM EDT) [...] ? sample. Estimated Average Glucose 137 MG/DL AGNIESZKANIRALITRIPP Comment: eAG = Estimated average glucose which is %A1C expressed as average glucose, using the formula of the E8F-Trfzjen Average Glucose study (ADAG), Diabetes Care, Vol.31,#8, Nov. 2007 12/30/2018 12:4 2 PM EDT Arelis Severino MD LAB BLOOD ORDERABLES Final Result [place] from Last 3 Months or Most Recently Relevant to Health Maintenance Insurance [place] [employer] Care Teams 3D Modeler Relationship Specialty Start Date End Date Eddie Martins [address] [place] [id number] PCP - General Family Medicine 04/07/24
[2024-09-06] MEDS: Ketorolac Tromethamine 15 MG/ML VIAL IM (08:48)
[2024-09-06 09:03] VITALS: BP 152/65; PULSE 84; RESP 20; TEMP 36.3; O2SAT 98
== END 2024-09-06 09:23 | disposition home or self-care (01) ==
PROVIDERS: Emergency Provider Emergency Medicine Emergency Medical Services; PCP Family Medicine
DX: M72.2 Plantar fascial fibromatosis (principal); M76.61 Achilles tendinitis, right leg; M79.671 Pain in right foot; E11.22 Type 2 diabetes mellitus with diabetic chronic kidney disease; I12.9 Hypertensive chronic kidney disease with stage 1 through stage 4 chronic kidney disease, or unspecified chronic kidney disease; N18.9 Chronic kidney disease, unspecified; E78.5 Hyperlipidemia, unspecified; Z79.02 Long term (current) use of antithrombotics/antiplatelets; Z79.899 Other long term (current) drug therapy
CPT/HCPCS: 36415; 73620; 80053; 85025; 96372; 99284; J1885

== ENCOUNTER → 2024-09-06 07:20 | Outpatient (BNV) | payer MEDICARE, MEDICAID, SELFPAY | PROVIDERS: Emergency Provider Emergency Medicine Emergency Medical Services; PCP Family Medicine; Visit Provider Radiology Diagnostic Radiology | DX: M65.271 Calcific tendinitis, right ankle and foot (principal) | CPT/HCPCS: 73620 ==

== ENCOUNTER 2024-12-29 05:59 | Outpatient (REF) | payer MEDICARE, MEDICAID, SELFPAY ==
--- OUTSIDE RECORDS SUMMARY | 2024-05-03 03:30 | XMS_ITS ---
Author Organization [facility] Address [address] [place] [address] Care Team Providers Care Oracle Financial Application Developer Name Role Phone Eddie Martins M.D. Primary Care Provider Carlitos Begum Jr Unavailable [phone] REASON FOR VISIT screening Encounters Encounter Location Date Provider Diagnosis [facility] Outpatient [address] [place] [id number] 05/03/2024 Carlitos Enriquez Jr Colon cancer screening Z12.11 Assessments Encounter Date Diagnosis (ICD Code) Assessment Notes Treatment Notes Treatment Clinical Notes Section Notes 05/03/2024 Colon cancer screening (ICD-10 - Z12.11) Plan Of Treatment No Information Progress Notes * TIM CASTRO JrDOB:[birth year] (74 yo M)Acc No.[id number]:05/03/2024 COLON WITH MAC Patient: TIM MADDEN Jr Provider: Kelly Enriquez MD :1950 A ge:73 Y S ex:Male Date:05/03/2024 Address:[address] [place], [place] [id number] Pcp:Eddie Martins M.D. Subjective: * Chief Complaints: * 1 . Screening. * Medical History: Objective: * Vitals: Assessment: * Assessment: 1. C olon cancer screening - Z12.11 (Primary) Plan: * Treatment: * Procedure Codes: 4 5378 DIAGNOSTIC COLONOSCOPY, 0529F INTRVL 3+YRS PTS CLNSCP DOCD, 0528F RCMND FLW-UP 10 YRS DOCD * * The named appointment provid er may or may not be the originator of this progress note, and it is not deemed complete until electronically signed by the appointment provider. Sign off status: Pending * Provider: Kelly Enriquez MD Date: 0 05/03/2024 Generated for Carlos Manuel santiago/Abad/Mónica on: 0 12/29/2024 06:03 AM EDT
--- OUTSIDE RECORDS SUMMARY | 2024-12-29 06:03 | XMS_ITS | Encounter Summary ---
Author Organization [facility] Address [address] [place] [address] [place] [address] Phone Care Team Providers Care Glass Enamel Mixer Name Role Phone Arelis Severino MD Primary Care Provider Eddie Martins MD Primary Care Provider [phone] Encounter Details Date Type Department Care Team (Late Contact Info) Description 01/18/2020 Transcribe Orders Virtual Department [address] [place] [address] Arelis Severino MD [address] [place] [address] [place] [phone] Social History Tobacco Use Types Packs/Day Years Used Date Smoking Tobacco: Never Assessed Sex and Gender Information Value Date Recorded Sex Assigned at Not on file Legal Sex Male 11:28 AM EDT Gender Identity Not on file Sexual Orientation Not on file documented as of this encounter Plan of Treatment Upcoming Encounters Date Type Department Care Team (Late Contact Info) Description 01/02/2025 8:30 AM EDT Office Visit [facility] [address] [place] [address] Eddie Martins MD [address] [place] [address] [address] [place], [place] [phone] [email or web address] documented as of this encounter Visit Diagnoses Not on filedocumented in this encounter Care Teams Glass Enamel Mixer Relationship Specialty Start Date End Date Arelis Severino MD [address] [place] [address] Dr [place] [address] PCP - General Internal Medicine 01/24/20 04/04/24 Eddie Martins MD [address] [place] [address], [address] [place] [address] [email or web address] PCP - General Family Medicine 04/05/24 documented as of this encounter Additional Source Comments The information contained in this document represents components of the legal health record. It is not the complete legal health record.[facility]
--- OUTSIDE RECORDS SUMMARY | 2024-12-29 06:03 | XMS_ITS | Encounter Summary ---
Author Organization [facility] Address [address] [place] [address] [place] [address] Phone Care Team Providers Care Home Health Attendant Name Role Phone Arelis Severino MD Primary Care Provider Eddie Martins MD Primary Care Provider [phone] Encounter Details Date Type Department Care Team (Late Contact Info) Description 01/10/2021 Transcribe Orders Virtual Department 30 [place] [address] Arelis Severino MD [address] [place] [address] [place] [phone] Encounter for laboratory testing for COVID-19 virus (Primary Dx) Social History Tobacco Use Types Packs/Day Years Used Date Smoking Tobacco: Every Day Smokeless Tobacco: Never Alcohol Use Standard Drinks/Week Comments Yes 0 [...] Description 01/02/2025 8:30 AM EDT Office Visit [facility] [address] [place] [address] Eddie Martins MD [address] [facility], [address] [place], [place] [phone] [email or web address] documented as of this encounter Results * COVID-19 PCR Order (01/20/2021 10:38 AM EDT) COVID Testing Status Specimen received in analyzing lab. Results should be available within 24 to 48 hrs. [facility] Symptomatic? NO [facility] Other 01/20/2021 10:3 8 AM EDT 01/20/2021 5:50 PM EDT Arelis Severino MD BODY FLUIDS AND STOOLS ORDERABLES Final Result [facility] [address] [place] [address] [facility] [address] [place] [address] documented in this encounter Visit Diagnoses Diagnosis Encounter for laboratory testing for COVID-19 virus- Primary documented in this encounter Care Teams Home Health Attendant Relationship Specialty Start Date End Date Arelis Severino MD [address] [place] [address] [phone] PCP - General Internal Medicine 01/24/20 04/04/24 Eddie Martins MD [address] [place] [address], [address] [place] [address] [email or web address] PCP - General Family Medicine 04/05/24 documented as of this encounter Additional Source Comments The information contained in this document represents components of the legal health record. It is not the complete legal health record.[facility]
--- OUTSIDE RECORDS SUMMARY | 2024-12-29 06:03 | XMS_ITS | Patient Health Record ---
Author Organization [facility] Address [address] [place] [address] Care Team Providers Care Pelt Salter Name Role Phone Eddie Martins M.D. Primary Care Provider Carlitos Begum Jr Unavailable Allergies Allergen (clinical drug ingredient) Drug/Non Drug Allergy documented on EMR Reaction Allergy Type Onset Date Status sulfamethoxazole / trimethoprim Bactrim Unknown Drug Allergy Active Results Component Value Reference Range Notes Glucose, Whole Blood Reviewed date:05/04/2024 07:50:22 AM Interpretation: Performing Lab:[facility], [address] [place] [phone] Notes/Report: Glucose, Whole Blood 159 60-115 mg/dL METER # : [id number] Reason For Referral Referring Provider First Name Arelis Referring Provider Last Name Mere Referring Provider Speciality Internal M edicine Referred Organization [facility] Referred Provider Carlitos Enriquez Jr Referred Address [address],[place], [place],[address], Referred Provider Specialty Gastroentero logy General Notes Cecy DEAN Daw n 02/09/2024 10:20:41 AM >REQUESTED A [facility] REFERRAL FROM DR RODRÍGUEZ'S OFFICE [...] Problem Status W/U Status Risk Notes Problem 520544977 Colon cancer screening (Z12.11) Active confirmed Problem 05545368 Rectal bleeding (K62.5) Active confirmed Problem [id number] cartographic aide (current) use of oral hypoglycemic drugs (Z79.84) Active confirmed Vital Signs Temperature 98.0 degrees Fahrenheit 03/21/2024 Blood pressure diastolic 00 mm Hg 03/21/2024 Height 68.50 in 03/21/2024 Blood pressure systolic 000 mm Hg 03/21/2024 Weight 175 lb 8 oz lbs 03/21/2024 BMI 26.29 kg/m2 03/21/2024 Encounters Encounter Location Date Provider Diagnosis [facility] [address] [place], [place] [phone] 05/03/2024 Carlitos Enriquez Jr Colon cancer screening Z12.11 [facility] [address] [place] [address] 03/21/2024 Carlitos Enriquez Jr Colon cancer screening Z12.11 and cartographic aide (current) use of oral hypoglycemic drugs Z79.84 [...] person benefits and agrees to proceed. 03/21/2024 cartographic aide (current) use of oral hypoglycemic drugs (ICD-10 [...] Insured Coverage Start Date Coverage End Date [facility] [address] [place] [address] [id number] TIM CASTRO Self - patient is the insured MEDICAID OF [facility] [address] [place] [address] [id number] TIM CASTRO Self - patient is the [...]
--- OUTSIDE RECORDS SUMMARY | 2024-12-29 06:03 | XMS_ITS | Encounter Summary ---
Author Organization [facility] Address [address] [place] [address] [place] [address] Phone Care Team Providers Care Guide Winder Name Role Phone Arelis Severino MD Primary Care Provider Eddie Martins MD Primary Care Provider [phone] Encounter Details Date Type Department Care Team (Late Contact Info) Description 01/24/2020 Transcribe Orders [facility] [address] [place] [address] Arelis Severino MD [address] [place] [address] [place] [phone] Social History Tobacco Use Types Packs/Day Years [...] Description 01/02/2025 8:30 AM EDT Office Visit [facility] [address] [place], [place] [phone] Eddie Martins MD [address] [place] [address] [address] [place], [place] [phone] [email or web address] documented as of this encounter Visit Diagnoses Not on filedocumented in this encounter Care Teams Guide Winder Relationship Specialty Start Date End Date Arelis Severino MD [address] [place] [address] Dr Daugherty [place] [address] PCP - General Internal Medicine 01/24/20 04/04/24 Eddie Martins MD [address] [place] [address], [address] [place] [address] [email or web address] PCP - General Family Medicine 04/05/24 documented as of this encounter Additional Source Comments The information contained in this document represents components of the legal health record. It is not the complete legal health record.[facility]
--- OUTSIDE RECORDS SUMMARY | 2024-12-29 06:03 | XMS_ITS | Clinical Summary ---
Author Organization [facility] Address [address] [place] [address] Phone Care Team Providers Care Broadcast Technician Name Role Phone Eddie Martins Primary Care Provider [phone] Allergies Active Allergy Reactions Criticality Noted Date [...] Upcoming Encounters Date Type Department Care Team (Latest Contact Info) Description 01/01/2025 Orders Only [facility] [address] [place] [address] Rudi Aquino MD [address] [facility] 204 [place] [address] Stage 3b chronic kidney disease (HCC); Renal mass; Hypertensive chronic kidney disease; Renal osteodystrophy 03/06/2025 3:30 PM EST Office Visit [facility] [address] [place] [address] Rudi Aquino MD 39[address] [facility] 204 [place] [phone] Health Maintenance Due Date Last Done Comments Colorectal Cancer Screening: Annual FOBT 08/29/1999 Colorectal Cancer Screening: Colonoscopy 08/29/1999 Colorectal Cancer Screening: Sigmoidoscopy 08/29/1999 Diabetes: Hemoglobin A1C 04/07/2024 12/30/2018 Diabetes: Ophthalmology Exam 04/07/2024 Diabetes: Pedal Pulse Checked 04/07/2024 Diabetes: Sensory Foot Exam 04/07/2024 Diabetes: Visual Foot Exam 04/07/2024 Influenza Vaccine (#1) 2024 0, 02/17/2018 Pneumococcal Vaccine: 50+ Years Completed 12/28/2019, [...] EDT) Hemoglobin A1C 6.4 % KIM[facility]LEE Comment: Hemoglobin A1C Reference Range Adults: 4.8 - 6.0 % Non diabetic: < 6.0 % Goal: < 7.0 % Additional Action Suggested: > 8.0 % Note: Hemoglobin A1c results are invalid for patients with abnormal amounts of HbF. Blood transfusions may impact the HbA1c concentration in the patient sample. Estimated Average Glucose 137 MG/DL [facility] Comment: eAG = Estimated average glucose which is %A1C expressed as average glucose, using the formula of the V4E-Jsuvtgh Average Glucose study (ADAG), Diabetes Care, Vol.31,#8, Nov. 2007 12/30/2018 12:4 2 PM EDT Arelis Severino MD LAB BLOOD ORDERABLES Final Result [place] from Last 3 Months or Most Recently Relevant to Health Maintenance Insurance Medicaid [place] Member Subscriber Plan / Payer (Ef fective 2019-Present) Name:Arnoldo Brooks Jr. Relation to Subscriber:Self Name:Arnoldo Brooks Jr. Payer ID:Not on file Group ID:Not on file Type:Not on file Address[address] Medicaid [place] [employer] Medicare Care Teams Broadcast Technician Relationship Specialty Start Date End Date Eddie Martins [address] [place] [address] PCP - General Family Medicine 04/07/24
--- OUTSIDE RECORDS SUMMARY | 2024-12-29 06:03 | XMS_ITS | Encounter Summary ---
Author Organization [facility] Address [address] [place] [address] [place] [address] Phone Care Team Providers Care Clinical Coder Name Role Phone Arelis Severino MD Primary Care Provider Eddie Martins MD Primary Care Provider [phone] Encounter Details Date Type Department Care Team (Late st Contact Info) Description 01/24/2020 Transcribe Orders Virtual Department [address] [place] [address] Arelis Severino MD [address] [place] [address] [place] [phone] Encounter for screening laboratory testing for COVID-19 virus (Primary Dx) [...] Care Team (Late st Contact Info) Description 01/02/2025 8:30 AM EDT Office Visit [facility] [address] [place], [place] [phone] Eddie Martins MD [address] [place] [address] [address] [place], [place] [phone] documented as of this encounter Results * COVID-19 PCR Order (01/24/2020 3:34 PM EDT) Specimen Source NASOPHARYNGEAL SWAB (ASSOCIATE PROFESSOR OF ENGINEERING) [facility] COVID Testing Status Sent to [facility] Symptomatic? NO [facility] Other 01/24/2020 3:34 PM EDT 01/24/2020 5:58 PM EDT Arelis Severino MD BODY FLUIDS AND STOOLS ORDERABLES Final Result [facility] [address] [place] [address] documented in this encounter Visit Diagnoses Diagnosis Encounter for screening laboratory testing for COVID-19 virus- Primary documented in this encounter Care Teams Clinical Coder Relationship Specialty Start Date End Date Arelis Severino MD [address] [place] [address] [place] [address] PCP - General Internal Medicine 01/24/20 04/04/24 Eddie Martins MD [address] [place] [address], [address] [place] [address] [email or web address] PCP - General Family Medicine 04/05/24 documented as of this encounter Additional Source Comments The information contained in this document represents components of the legal health record. It is not the complete legal health record.[facility]
--- OUTSIDE RECORDS SUMMARY | 2024-12-29 06:03 | XMS_ITS | Clinical Summary ---
Author Organization [facility] [address] [facility] Address [address] [place] [address] Phone Care Team Providers Care Iv Therapy Nurse Name Role Phone Arelis Severino MD Primary Care Provider [phone] Surgical History Surgery Date Site/Laterality Comments OTHER SURGICAL HISTORY 2017 Right PROCEDURE: [place] THORACOSCOPY W/LOBECTOMY SINGLE LOBE; COMMENT: RUL lobectomy OTHER SURGICAL HISTORY 2012 PROCEDURE: COLONOSCOPY, SURGICAL Medical History Medical History Date Comments Lung cancer ([facility] V24, [facility] V28) 2017 DX:Lung cancer (HCC); COMMENT: RUL lung cancer - surgical resection Anxiety disorder DX:Anxiety diso rder BPH (benign prostatic hyperplasia) DX:BPH (benign prostatic hyperplasia) CKD (chronic kidney disease) DX: CKD (chronic kidney disease) Diverticulosis DX:Diverticulosi s Emphysema lung ([facility] V24, 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 V24, [facility] V28) DX:Type 2 max betes mellitus without complications ([facility]) COPD (chronic obstructive pu lmonary disease) ([facility] V24, [facility] V28) DX:COPD (chronic o bstructive pulmonary disease) ([facility]) Social History Tobacco Use Types Packs/Day Years Used Date Smoking Tobacco: Every Day Cigarettes 1 65.7 Started: 1959 Smokeless Tobacco: Never Alcohol Use [...] Due Date Last Done Comments Diabetes: Annual Foot Exam 1960 Diabetes: Annual Retina Eye Exam 1960 RSV Immunization Adult Patients (1 - Risk 60-74 years 1-dose series) 2010 Abdominal Aortic Aneurysm (AAA) Screen 05/06/2023 Cholesterol Screening (Lipid Panel) 05/06/2023 Colorectal Cancer Screening: Colonoscopy 05/06/2023 Falls Risk Assessment 05/06/2023 Hepatitis C Screening 05/06/2023 Medicare Annual Wellness Visit 05/06/2023 Social Influencers of Health Screening 05/06/2023 Depression Screening 04/06/2024 Diabetes: Annual Urine Albumin-Creatinine Ratio (uACR) 05/09/2024 Diabetes: Blood Sugar Control Test (HGBA1C) 05/09/2024 12/30/2018 COVID-19 Vaccine ( season) 2024 09/04/2021, 09/04/2020, 06/07/2020, Additional history exists Influenza Vaccine (#1) 2024 12/28/2019, 2017 Lung Cancer Screening (Low Dose CT) 05/09/2025 05/09/2024 Diabetes: Annual GFR (Glomerular Filtration Rate) 06/27/2025 06/27/2024 Hypertension/CHF/CAD Annual BMP Blood Test 06/27/2025 06/27/2024 DTaP,Tdap,and Td Vaccines (2 - Td or [...] EST No new or suspicious pulmonary nodules. Lung RADS 2-benign. Recommend continued screening with low-dose chest CT in 12 months. -------- FINAL REPORT -------- Dictated By: SAMANTHA DE LA ROSA Dictated Date: 05/11/2024 09:03 ET Assigned Physician: SAMANTHA DE LA ROSA Reviewed and Electronically Signed By: SAMANTHA DE LA ROSA Signed Date: 05/11/2024 09:06 ET Workstation ID: [id number] Transcribed By: Self Edit Transcribed Date: 05/11/2024 09:03 ET Narrative 05/11/2024 9:06 AM EST PROCEDURE: Chest CT INDICATION: Lung cancer screening, current smoker, 65 pack year smoking history TECHNIQUE: Chest CT without contrast. Multi planar reformats were created and interpreted. The examination was performed utilizing dose reduction techniques. Total DLP 105 COMPARISON: 03/26/2023 FINDINGS: LUNGS/PLEURA: Central airways are patent. Right upper lobectomy. Emphysema. Chronic bronchitis. 3 mm right middle lobe nodule is stable compared to prior. No new or suspicious pulmonary nodules. No pleural effusion or pneumothorax. MEDIASTINUM: Thyroid gland is normal. No mediastinal or hilar lymphadenopathy. Esophagus is normal. Cardiac chambers are normal in size. Severe coronary artery calcifications. No pericardial effusion [...] Signed Date: 05/11/2024 09:06 ET Workstation ID: [id number] Transcribed By: Self Edit Transcribed Date: 05/11/2024 09:03 ET us Sarah Stephen MD IMG CT PROCEDURES Final Result from Last 3 Months or Most Recently Relevant to Health Maintenance Insurance MEDICA[place] MEDIC[place] [employer] MED[employer]AGE Care Teams Iv Therapy Nurse Relationship Specialty Start Date End Date Arelis Severino MD [address] [place] [address] [place] [address] PCP - General Internal Medicine 04/21/24
--- OUTSIDE RECORDS SUMMARY | 2024-12-29 06:03 | XMS_ITS | Encounter Summary ---
Author Organization [facility] Address [address] [facility] [address] [place] [address] Phone Care Team Providers Care Superintendent Pressure Name Role Phone Eddie Martins Primary Care Provider [phone] Encounter Details Date Type Department Care Team (Late st Contact Info) Description 10/27/2023 Office Communication [facility] [address] [place] [phone] Mee Aquino [address] [place] [phone] Social History Tobacco Use Types Packs/Day [...] don't see results. Pls call him at [phone]. TY documented in this encounter Plan of Treatment Upcoming Encounters Date Type Department Care Team (Latest Contact Info) Description 01/01/2025 Orders Only [facility] [address] [place] [address] Rudi Aquino MD [address] [address] Stage 3b chronic kidney disease (HCC); Renal mass; Hypertensive chronic kidney disease; Renal osteodystrophy 03/06/2025 3:30 PM EST Office Visit [facility] [address] [place] [address] Rudi Aquino MD [address] [address] documented as of this encounter Visit Diagnoses Not on filedocumented in this encounter Care Teams Superintendent Pressure Relationship Specialty Start Date End Date Eddie Martins [address] [place] [address] PCP - General Family Medicine 04/07/24 documented as of this encounter
--- OUTSIDE RECORDS SUMMARY | 2024-12-29 06:03 | XMS_ITS | Encounter Summary ---
Author Organization [facility] Address [address] [employer] [facility] [address] [place] [address] Phone Care Team Providers Care Recovery Operator Helper Name Role Phone Eddie Martins MD Primary Care Provider [phone] Reason for Visit * Reason Comments Medication Refill Encounter Details Date Type Department Care Team (Late st Contact Info) Description 12/27/2024 Refill [facility] [address] [place] [address] Ryanne Vazquez PA-C [address] [place] [address] [address] [place] [address] Medication Refill Social History Tobacco Use Types Packs/Day Years Used Date Smoking Tobacco: Every Day Smokeless Tobacco: Never Alcohol Use Standard Drinks/Week Comments Yes 0 (1 standard drink = 0.6 oz pur e alcohol) Child or Family Care Answer Date Record ed Do you have problems with on e of the following making it difficult for you to work, study, or receive health care? No 03/29/2024 Education Answer Date Recorded Are you interested in more education? Not on reece e 08/01/2022 Are you concerned about learning? Not on file 08/01/2022 No 08/01/2022 No 08/01/2022 Food Answer Date Recorded Within the past 6 months we worried whether our food would run out before we got money to buy more. Never True 03/29/2024 Within the past 6 months the food we bought just didn't last and we didn't have enough money to get more. Never True Residential Stability Answer Date Recor ded What is your housing situation today? I have ministerio cunningham 03/29/2024 How many times have you move d in the past 12 months? Zero (I did not move) 03/29/2024 Paying for Meds Answer Date Recorded Do you have trouble paying for medicines? No 03/29/2024 Paying Utility Bills Answer Date Record ed Do you have trouble paying your heating or elect ricity bill? Yes 03/29/2024 Transportation Answer Date Recorded Has the lack of transportati on kept you from medical appointments or from getting medications? No 03/29/2024 Digital Access Answer Date Recorded No 03/29/2024 Yes 03/29/2024 Do you have reliable internet access at home? Ye s 03/29/2024 Do you have a device (e.g., phone, tablet, computer) with a working camera? Yes 03/29/2024 Intimate Partner Violence Answer Date R ecorded Denied Basic Needs Not on file 03/29/2024 In the past 12 months have y ou been in a relationship with a person who hurts, threatens, or tries to control you? No 03/29/2024 Worried food would run out Not on file 03/29 In the past 12 months have y ou been in a relationship with a person who hurts, threatens, or tries to control you? No 03/29/2024 Sex and Gender Information Value Date Recorded Sex Assigned at Not on file Legal Sex Male 11:28 AM EDT Gender Identity Not on file Sexual Orientation Not on file documented as of this encounter Progress Notes * Tod Vazquez MA - 12/27/2024 9:51 AM EDT Rx Care Gap Status - Instructions for Clinical Staff (prescriber discretion applies): > Mismatch review guide > N/a - No action needed Visit Info Last visit: 07/01/2024 Eddie Martins MD - Family Medicine [facility] > Requested f/u: Return in about 6 months (around 01/01/2025) for Recheck. Upcoming visit: 01/02/2025 Eddie Martins MD - Family Medicine [facility] ACTIONS TAKEN BY Tod Vazquez MA Asthma / COPD Inhalers Rx Protocol - fluticasone/umeclidin/vilanter - albuterol sulfate Criteria met; renew for up to 12 months. Visit in the past 14 months: Yes documented in this encounter Plan of Treatment Upcoming Encounters Date Type Department Care Team (Late st Contact Info) Description 01/02/2025 8:30 AM EDT Office Visit [facility] [address] [place] [address] Eddie Martins MD [address] [address] [email or web address] documented as of this encounter Visit Diagnoses Diagnosis Pulmonary emphysema, unspecified emphysema type documented in this encounter Additional Health Concerns Assessment Noted Time PHQ-2 Depression Total Score: 0 03/29/20 5:33 PM EST documented as of this encounter Care Teams Recovery Operator Helper Relationship Specialty Start Date End Date Eddie Martins MD [address] [address] [email or web address] PCP - General Family Medicine 04/05/24 documented as of this encounter Additional Source Comments The information contained in this document represents components of the legal health record. It is not the complete legal health record.[facility]
--- OUTSIDE RECORDS SUMMARY | 2024-12-29 06:04 | XMS_ITS | Clinical Summary ---
Author Organization [facility] Address [address] [place] [address] Phone Care Team Providers Care Label Fuser Tender Name Role Phone Eddie Martins MD Primary Care Provider [phone] Allergies Active Allergy Reactions Criticality Noted Date Comments Sulfamethoxazole-Trimethoprim 2019 Medications oxyCODONE 5 MG immediate release tablet Take 5 mg by mouth every 6 (six) hours as needed. 10/07/19 24 Active meclizine (ANTIVERT) 12.5 mg tabletIndications: Meniere's disease of both ears Take 1 tablet (12.5 mg total) by mouth daily as needed for dizziness. 90 tablet 1 04/05/20 24 Active pravastatin (PRAVACHOL) 80 MG tabletIndications: Mixed hyperlipidemia Take 1 tablet (80 mg total) by mouth daily. 90 tablet 3 04/05/20 24 Active JANUVIA 50 mg tabletIndications: Type 2 diabetes mellitus with stage 3b chronic kidney disease, without long-term current use of insulin Take 1 tablet (50 mg total) by mouth daily. 90 tablet 3 04/05/20 24 Active famotidine (PEPCID) 40 MG tabletIndications: Gastroesophageal reflux disease, unspecified whether esophagitis present Take 1 tablet (40 mg total) by mouth daily. 90 tablet 3 04/05/20 24 Active finasteride (PROSCAR) 5 mg tablet Take 1 tablet (5 mg total) by mouth daily. 90 tablet 3 08/03/19 25 Active lisinopril-hydroCH LOROthiazide (PRINZIDE,ZESTORET IC) 20-25 mg per tabletIndications: Essential hypertension Take 1 tablet by mouth daily. 90 tablet 08/03/19 Active tamsulosin (FLOMAX) 0.4 mg Cap Take 1 capsule (0.4 mg total) by mouth daily. 90 capsule 3 08/05/19 25 Active TRELEGY ELLIPTA 200-62.5-25 mcg inhalerIndications :Pulmonary emphysema, unspecified emphysema type INHALE 1 PUFF INTO THE LUNGS DAILY 60 each 2 12/28/19 25 Active albuterol 90 mcg/actuation inhalerIndications :Pulmonary emphysema, unspecified emphysema type INHALE 2 PUFFS INTO THE LUNGS EVERY 6 HOURS NEEDED FOR WHEEZING 18 g 2 12/28/19 25 Active albuterol 90 mcg/actuation inhalerIndications :Pulmonary emphysema, unspecified emphysema type INHALE 2 PUFFS INTO THE LUNGS EVERY 6 HOURS NEEDED FOR WHEEZING 18 g 2 09/02/19 25 025 Discontinued TRELEGY ELLIPTA 200-62.5-25 mcg inhalerIndications :Pulmonary emphysema, unspecified emphysema type INHALE 1 PUFF INTO THE LUNGS DAILY 60 each 2 09/02/19 25 025 Discontinued Active Problems Problem Noted Date Diagnosed Date Meniere's disease of both ears 04/05/2024 Type 2 diabetes mellitus wit h stage 3b chronic kidney disease, without long-term current use of insulin 04/05/2024 Pulmonary emphysema 04/05/2024 Benign prostatic hyperplasia without lower urinary tract symptoms 04/05/2024 Essential hypertension 06/25/2020 Gastroesophageal reflux disease 06/25/2020 Hyperlipidemia 06/25/2020 Stage 3 chronic kidney disease 06/25/2020 Encounters Date Type Department Care Team Description 12/27/[address] [address] Ryanne Vazquez PA-C Medication Refill from Last 3 Months Immunizations Immunization Administration Dates Next Due COVID-19 (Pre-01/26) Pfizer Vaccine, mRNA, PF ,05/17/2020 Influenza High-Dose Trivalent Preservative Free IM 02/17/2018 Influenza Quadrivalent MDCK Preservative Free IM 12/28/2019 Pneumococcal conjugate PCV13 12/28/2019 Pneumococcal polysaccharide PPSV23 02/17/2018 Tdap 06/17/2018 Zoster recombinant 03/16/2020,12/28/2019 Social History Tobacco Use Types Packs/Day Years Used Date Smoking Tobacco: Every Day Smokeless Tobacco: Never Tobacco Cessation:Ready to Q uit: Not Asked; Counseling Given: Not Answered Alcohol Use Standard Drinks/Week Comments Yes 0 [...] your housing situation today? I have ministerio sing 03/29/2024 How many times have you move [...] Sign Reading Time Taken Comments Blood Pressure 120/60 07/01/2024 8:30 AM EDT Pulse 74 07/01/2024 8:30 AM EDT Temperature 36.7 C (98 F) 07/01/2024 8:30 AM EDT Respiratory Rate 18 10/09/2023 11:08 AM EDT Oxygen Saturation 94% 07/01/2024 8:30 AM EDT Inhaled Oxygen Concentration - - Weight 78.9 kg (174 lb) 07/01/2024 8:30 AM EDT Height 175.3 cm (5' 9 ) 04/05/2024 7:57 AM EST Body Mass Index 25.7 04/05/2024 7:57 AM EST Plan of Treatment Upcoming Encounters Date Type Department Care Team (Late st Contact Info) Description 01/02/2025 8:30 AM EDT Office Visit [facility] [address] [place] [address] Eddie Martins MD 234 [facility], [address] [place] [address] [email or web address] Health Maintenance Due Date Last Done Comments POTASSIUM LEVEL 1950 SMOKING Hx and SMOKELESS TOBACCO SCREENING 08/29/1963 HEPATITIS C SCREENING 1968 COLOGUARD 08/29/1995 FIT TEST 08/29/1995 FOBT 08/29/1995 SIGMOIDOSCOPY 08/29/1995 VIRTUAL COLONOSCOPY 08/29/1995 RSV VACCINE (1 - Risk 60-74 years 1-dose series) 2010 ABDOMINAL AORTIC ANEURYSM (AAA) SCREENING 08/29/2015 HEMOGLOBIN A1C 06/30/2019 12/30/2018 DIABETIC EYE EXAM 04/05/2024 INFLUENZA VACCINE (#1) 2024 12/28/2019, 2017 COVID-19 VACCINE ( season) 2024 09/04/2021, 09/04/2020, 06/07/2020, Additional history exists BLOOD PRESSURE 01/01/2025 07/01/2024 DEPRESSION SCREENING 03/29/2025 03/29/2024 CREATININE LEVEL 06/27/2025 06/27/2024 Adult Td,Tdap Booster 06/17/2028 06/17/2018 COLONOSCOPY 08/17/2034 08/17/2024, 08/17/2024 COLORECTAL CANCER SCREENING 08/17/2034 PNEUMOCOCCAL VACCINES (50+ years) Completed 12/28/2019, 02/17/2018 ZOSTER VACCINES Completed 03/16/2020, 12/28/2019 HEPATITIS A VACCINES Aged Out No long er eligible based on patient's age to complete this topic HIB VACCINES Aged Out No longer eligi ble based on patient's age to complete this topic MENINGOCOCCAL VACCINES (ACWY) Aged Out No longer eligible based on patient's age to complete this topic MENINGOCOCCAL VACCINES (B) Aged Out N o longer eligible based on patient's age to complete this topic Medical Devices Not on file Procedures Procedure Name Priority Date/Time Associated Diagnosis Comments COLONOSCOPY FOR RESULT ENTRY ONLY Routine 08/17/2024 11:42 AM EDT COMPREHENSIVE METABOLIC PANEL Routine 06/27/2024 11:32 AM EDT Stage 3b chronic 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, without long-term current use of insulin from Last 3 Months or Most Recently Relevant to Health Maintenance Results * COLONOSCOPY FOR RESULT ENTRY ONLY (08/17/2024 11:42 AM EDT) us Historical Provider HEALTH MAINTENANCE Final Result * Comprehensive metabolic panel (06/27/2024 11:32 AM EDT) Blood us Eddie Martins MD LAB BLOOD ORDERABLES Final Resul t [address] [address] from Last 3 Months or Most Recently Relevant to Health Maintenance Insurance [employer] REPLACEMENT [facility] MEDIC[facility] PART A & B [employer]REF[employer]ED [employer] REPLACEMENT [facility] PART A & B [employer] REPLAC[employer] RE[employer] [facility] [place] A [place] [id number] [employer] REPLAC[employer] [facility] MEDIC[facility] PART A & B JAIME MEDICARE PREFERRED HMO REPLACEMENT [facility] MED[facility] PART A & B [employer] REPLAC[employer] [facility] MEDIC[facility] PART A & B Care Teams Label Fuser Tender Relationship Specialty Start Date End Date Eddie Martins MD [address] [place] [address], [address] [place] [address] [email or web address] PCP - General Family Medicine 04/05/24 Additional Source Comments The information contained in this document represents components of the legal health record. It is not the complete legal health record.[facility]
[2024-12-29 10:17] LABS: MANUAL DIFF FLAG NO
[2024-12-29 10:29] LABS: Hematocrit 41.2 % (42.0-52.0); Hemoglobin 13.5 g/dl (14.0-18.0); Imm Gran Abs Auto 0.03 X10*3/uL (0.00-0.03); Imm Gran Pct Auto 0.3 % (0.0-0.4); Lymphocytes Absolute Auto 2.0 X10*3/uL (1.2-4.9); Mean Corpuscular HGB Conc 32.8 g/dl (31.0-36.0); Mean Corpuscular Hemoglobin 29.8 pg (27.0-33.0); Mean Corpuscular Volume 90.9 fL (80.0-98.0); NRBC Abs Auto 0.000 X10*3/uL (0.0-0.012); NRBC Pct Auto 0.0 /100WBC (0.0-0.2); Platelet Count 197 X10*3/uL (160-400); Red Blood Count 4.53 X10*6/uL (4.60-5.80); White Blood Count 8.7 X10*3/uL (4.8-10.8)
[2024-12-29 10:44] LABS: Hemoglobin A1C 165.0511 umol/L; Total Hemoglobin (HGBA1C) 3458.8703 umol/L
[2024-12-29 11:09] LABS: Alanine Aminotransferase < 6 U/L (0-40); Albumin Level 4.3 g/dL (3.5-5.0); Alkaline Phosphatase 84 U/L (39-117); Anion Gap 12 (12-20); Aspartate Amino Transferase 19 U/L (5-37); Blood Urea Nitrogen 41 mg/dL (9-16); Calcium 8.9 mg/dL (8.4-10.2); Carbon Dioxide 27 mmol/L (22-29); Chloride 105 mmol/L (96-108); Cholesterol 132 mg/dL (<200); Estimated Glomerular Filt Rate 24; HDL Cholesterol 30 mg/dL (>40); Potassium 3.9 mmol/L (3.3-5.1); Sodium 140 mmol/L (135-145); Total Protein 6.8 g/dL (6.5-8.0); Triglycerides 138 mg/dL (<150)
== END 2024-12-29 06:00 | disposition home or self-care (01) ==
LOC: HO.HMGCLDS 05:59
PROVIDERS: PCP Family Medicine; Visit Provider Family Medicine
DX: I12.9 Hypertensive chronic kidney disease with stage 1 through stage 4 chronic kidney disease, or unspecified chronic kidney disease (principal); E11.22 Type 2 diabetes mellitus with diabetic chronic kidney disease; N18.32 Chronic kidney disease, stage 3b
CPT/HCPCS: 36415; 80053; 80061; 83036; 85025

== ENCOUNTER 2025-02-27 06:01 | Outpatient (REF) | payer MEDICARE, MEDICAID, SELFPAY ==
--- OUTSIDE RECORDS SUMMARY | 2024-05-03 02:30 | XMS_ITS ---
Author Organization [facility] Address [address] [place] [address] Care Team Providers Care Cocktail Lounge Manager Name Role Phone Eddie Martins M.D. Primary Care Provider Carlitos Begum Jr Unavailable REASON FOR VISIT screening Encounters Encounter Location Date Provider Diagnosis [facility] Outpatient [address] [place] [id number] 05/03/2024 Carlitos Enriquez Jr Colon cancer screening Z12.11 Assessments Encounter Date Diagnosis (ICD Code) Assessment Notes Treatment Notes Treatment Clinical Notes Section Notes 05/03/2024 Colon cancer screening (ICD-10 - Z12.11) Plan Of Treatment No Information Progress Notes * TIM CASTRO DOB:[birth year] (74 yo M)Acc No.[id number]:05/03/2024 COLON WITH MAC Patient: TIM MADDEN Jr Provider: Kelly Enriquez MD :1950 A ge:73 Y S ex:Male Date:05/03/2024 Address:[address] [place], [place] [id number] Pcp:Eddie Martins M.D. Subjective: * Chief Complaints: * S creening Assessment: * Assessment: 1. C olon cancer screening - Z12.11 (Primary) Plan: * Procedure Codes: 4 5378 DIAGNOSTIC [id number] INTRVL 3+YRS PTS CLNSCP [id number] RCMND FLW-UP 10 YRS DOCD Billing Information: * Procedure Codes: 94607 DIAGNOSTIC COLONOSCOPY. 0529F INTRVL 3+YRS PTS CLNSCP DOCD. 0528F RCMND FLW-UP 10 YRS DOCD. * The named appointment provid er may or may not be the originator of this progress note, and it is not deemed complete until electronically signed by the appointment provider. Sign off status: Pending * Provider: Kelly Enriquez MD Date: 0 05/03/2024 Generated for Carlos Manuel santiago/Abad/Oniitting on: 04/29/2024 06:04 AM EST
--- OUTSIDE RECORDS SUMMARY | 2025-02-27 06:04 | XMS_ITS | Encounter Summary ---
Author Organization [facility] Address [address] [place] [address] [place] [address] Phone Care Team Providers Care Drug Safety Assistant Name Role Phone Arelis Severino MD Primary Care Provider Eddie Martins MD Primary Care Provider [phone] Encounter Details Date Type Department Care Team (Late st Contact Info) Description 01/24/2020 Transcribe Orders Virtual Department [address] [place] [address] Arelis Severino MD [address] [place] [address] [place] [address] Encounter for screening laboratory testing for COVID-19 [...] Care Team (Late st Contact Info) Description 02/28/2025 9:00 AM EST Office Visit [facility] [address] [place], [place] [phone] Eddie Martins MD [address] [place] [address] [address] [place], [place] [id number] [email or web address] documented as of this encounter Results * COVID-19 PCR Order (01/24/2020 3:34 PM EDT) Specimen Source NASOPHARYNGEAL SWAB (NURSE ADVISOR) [facility] COVID Testing Status Sent to [facility] Symptomatic? NO [facility] Other 01/24/2020 3:34 PM EDT 01/24/2020 5:58 PM EDT us Arelis Severino MD LAB GENERAL ORDERABLES Final Result [facility] [address] [place] [address] documented in this encounter Visit Diagnoses Diagnosis Encounter for screening laboratory testing for COVID-19 virus- Primary documented in this encounter Care Teams Drug Safety Assistant Relationship Specialty Start Date End Date Arelis Severino MD [address] [place] [address] [place] [address] PCP - General Internal Medicine 01/24/20 04/04/24 Eddie Martins MD [address] [place] [address], [address] [place] [address] [email or web address] PCP - General Family Medicine 04/05/24 documented as of this encounter Additional Source Comments The information contained in this document represents components of the legal health record. It is not the complete legal health record.[facility]
--- OUTSIDE RECORDS SUMMARY | 2025-02-27 06:04 | XMS_ITS | Encounter Summary ---
Author Organization [facility] Address [address] [place] [address] [place] [address] Phone Care Team Providers Care Lease Purchase Driver Name Role Phone Arelis Severino MD Primary Care Provider Eddie Martins MD Primary Care Provider [phone] Encounter Details Date Type Department Care Team (Late Contact Info) Description 01/24/2020 Transcribe Orders [facility] [address] [place] [address] Arelis Severino MD [address] [place] [address] [place] [address] Social History Tobacco Use Types Packs/Day Years Used Date Smoking Tobacco: Never Assessed Sex and Gender Information Value Date Recorded Sex Assigned at Not on file Legal Sex Male 11:28 AM EDT Gender Identity Not on file Sexual Orientation Not on file documented as of this encounter Plan of Treatment Upcoming Encounters Date Type Department Care Team (Late Contact Info) Description 02/28/2025 9:00 AM EST Office Visit [facility] [address] [place], [place] [phone] Eddie Martins MD [address] [place] [address] [address] [place], [place] [phone] [email or web address] documented as of this encounter Visit Diagnoses Not on filedocumented in this encounter Care Teams Lease Purchase Driver Relationship Specialty Start Date End Date Arelis Severino MD [address] [place] [address] Dr Daugherty [place] [phone] PCP - General Internal Medicine 01/24/20 04/04/24 Eddie Martins MD [address] [place] [address], [address] [place] [address] [email or web address] PCP - General Family Medicine 04/05/24 documented as of this encounter Additional Source Comments The information contained in this document represents components of the legal health record. It is not the complete legal health record.[facility]
--- OUTSIDE RECORDS SUMMARY | 2025-02-27 06:04 | XMS_ITS | Clinical Summary ---
Author Organization [facility] Address [address] [place] [address] Phone Care Team Providers Care Reinspector Name Role Phone Eddie Martins Primary Care Provider [phone] Allergies Active Allergy Reactions Criticality Noted Date [...] Encounters Date Type Department Care Team Description 01/01/2025 Orders Only [facility] [address] [place] [address] Rudi Aquino MD Stage 3b chronic kidney disease (HCC); Renal [...] Care Team (Late st Contact Info) Description 03/06/2025 3:30 PM EST [facility] [address] [place] [address] Rudi Aquino MD [address] [facility] [address] [place] [address] Health Maintenance Due Date Last [...] average glucose, using the formula of the H7W-Vkcibom Average Glucose study (ADAG), Diabetes Care, Vol.31,#8, Nov. 2007 12/30/2018 12:4 2 PM EDT us Arelis Severino MD LAB BLOOD ORDERABLES Final Result [place] from Last 3 Months or Most Recently Relevant to Health Maintenance Insurance [place] Member Subscriber Plan / Payer (Ef fective 2019-Present) Name:Arnoldo Brooks Jr. Relation to Subscriber:Self Name:Arnoldo Brooks Jr. Payer ID:Not on file Group ID:Not on file Type:Not on file Address: [address] [employer] Care Teams Reinspector Relationship Specialty Start Date End Date Eddie Martins [address] [place] [address] PCP - General Family Medicine 04/07/24
--- OUTSIDE RECORDS SUMMARY | 2025-02-27 06:04 | XMS_ITS | Patient Health Record ---
Author Organization [facility] Address [address] [place] [address] Care Team Providers Care Dry Mop Maker Name Role Phone Eddie Martins M.D. Primary Care Provider Carlitos Begum Jr Unavailable [phone] Allergies Allergen (clinical drug ingredient) Drug/Non Drug Allergy documented on EMR Reaction Allergy Type Onset Date Status sulfamethoxazole / trimethoprim Bactrim Unknown Drug Allergy Active Results Component Value Reference Range Flag Notes Glucose, Whole Blood Reviewed date:05/04/2024 07:50:22 AM Interpretation: Performing Lab:[facility], [address] [place] [id number] Notes/Report: Glucose, Whole Blood 159 60-115 mg/dL H SC TER #: [id number] Reason For Referral No Information Medications Medication SIG (Take, Route, Frequency, Duration) Notes Start Date End Date Status Finasteride 5 MG Tablet TAKE 1 TABLET BY MOUTH EVERY DAY Oral; Duration: 90 Active Tamsulosin HCl 0.4 MG Capsule TAKE 1 CAPSULE BY MOUTH EVERY NIGHT AT BEDTIME Oral; Duration: 90 Active Januvia 50 MG Tablet TAKE 1 TABLET BY MO UT DAILY Oral; Duration: 90 Active Trelegy Ellipta 200-62.5-25 MCG/ACT Aerosol Powder Breath Activated INHALE 1 PUFF BY MOUTH DAILY Inhalation; Duration: 90 Active Anusol-HC 25 MG Suppository 1 suppository Rectal at night/prn 12/03/2017 Active Famotidine 40 MG Tablet 1 tablet at bedt cabrera Orally Once a day Active Lisinopril-hydroCHLOROthia zide 20-12.5 MG Tablet 1 tablet Orally Once a day; Duration: 30 day(s) Active oxyCODONE HCl 5 MG Tablet TAKE 1 TABLET BY MOUTH EVERY 6 HOURS NEEDED FOR PAIN Oral; Duration: 7 Activ e MiraLax (colon prep) 17 GM/SCOOP Powder mixed with Gatorade or Crystal Light Orally begin at 5:00 p.m. the day before the procedure; Duration: 1 day 03/21/2024 Active Pravastatin Sodium 40 MG Tablet 1 tablet Orally Once a day A ctive Immunizations Vaccine Route Administration Date Status Comme nts Influenza Unknown 12/15/2017 Administered Influenza Unknown 03/21/2024 Refused Social History Tobacco Use: Social History Observation Description Date Details (start date - stop date) Current Smoker NA - NA Social History Tobacco Use: Social Info Question Answer Notes Tobacco Use/Smoking Patient is a current smoker Additional Details Category Social Info Options Details Miscellaneous: Marital status: Single Occupation: [employer] Problems Problem Type SNOMED Code ICD Code Onset Dates Problem Status W/U Status Risk Notes Problem Information temporarily unavailable Colon cancer screening (Z12.11) Active confirmed Problem Information temporarily unavailable Rectal bleeding (K62.5) Active confirmed Problem Information temporarily unavailable shelter (current) use of oral hypoglycemic drugs (Z79.84) Active confirmed Vital Signs Temperature 98.0 degrees Fahrenheit 03/21/2024 Blood pressure diastolic 00 mm Hg 03/21/2024 Height 68.50 in 03/21/2024 Blood pressure systolic 000 mm Hg 03/21/2024 Weight 175 lb 8 oz lbs 03/21/2024 BMI 26.29 kg/m2 03/21/2024 Encounters Encounter Location Date Provider Diagnosis [facility] Outpatient [address] [place] [phone] 05/03/2024 Carlitos Enriquez Jr Colon cancer screening Z12.11 [facility] [address] [place] [phone] 03/21/2024 Carlitos Enriquez Jr Colon cancer screening Z12.11 and shelter (current) use of oral hypoglycemic drugs Z79.84 [...] person benefits and agrees to proceed. 03/21/2024 buttermaker (current) use of oral hypoglycemic drugs (ICD-10 - Z79.84) We discussed colonoscopy today. We discussed risks and benefits of the procedure today. He is advised to stop Januvia 2 days before the procedure. He is aware of person benefits and agrees to proceed. 05/03/2024 Colon cancer screening (ICD-10 - Z12.11) Plan Of Treatment Future Test Test Name Order Date COLONOSCOPY 09/16/2012 COLONOSCOPY 05/05/2018 COLONOSCOPY 03/21/2024 Insurance Providers Payer Name Payer Address Payer Phone Subscriber Number Group Number Insured Name Patient Relationship to Insured Coverage Start Date Coverage End Date [facility] [address] [place] [address] [id number] TIM CASTRO Self - patient is the insured MEDICAID OF [employer] [address] [place] [id number] TIM CASTRO Self - patient is the [...]
--- OUTSIDE RECORDS SUMMARY | 2025-02-27 06:04 | XMS_ITS | Clinical Summary ---
Author Organization [facility] Address [address] [place] [address] Phone Care Team Providers Care Acetone Recovery Worker Name Role Phone Eddie Martins MD Primary Care Provider [phone] Allergies Active Allergy Reactions Criticality Noted Date Comments Sulfamethoxazole-Trimethoprim 2019 Medications oxyCODONE 5 MG immediate release tablet Take 5 mg by mouth every 6 (six) hours as needed. 10/07/19 24 Active pravastatin (PRAVACHOL) 80 MG tabletIndications: [...] tablet by mouth daily. 90 tablet 08/03/19 25 Active Additional Information Patient taking differently: 0.5 tabletOral Daily, Reported on 01/02/2025 tamsulosin (FLOMAX) 0.4 mg Cap Take 1 [...] WHEEZING 18 g 2 12/28/19 25 Active azithromycin (ZITHROMAX) 250 MG tabletIndications: Chronic frontal sinusitis Take 2 tablets on day 1 followed by 1 tablet daily for 4 days 6 tablet 01/03/20 25 Active meclizine (ANTIVERT) 12.5 mg tabletIndications: Meniere's disease of both ears Take 1 tablet (12.5 mg total) by mouth daily as needed for dizziness. 90 tablet 1 01/03/20 25 Active Active Problems Problem Noted Date Diagnosed [...] Encounters Date Type Department Care Team Description 01/02/2025 8:30 AM EDT Office Visit [facility] [address] [place] [address] Eddie Martins MD Type 2 diabetes mellitus with stage 3b chronic kidney disease, without long-term current use of insulin (Primary Dx); Essential hypertension; Mixed hyperlipidemia; Chronic frontal sinusitis; Meniere's disease of both ears; Benign prostatic hyperplasia without lower urinary tract symptoms 12/30/2024 Orders Only [facility] [address] [place] [address] Charlotte Jesus MD 12/27/2024 Refill [facility] [address] [place] [address] Vazquez, Ryanne Merle, PA-C Medication Refill from Last 3 Months Immunizations Immunization Administration Dates Next Due COVID-19 (Pre-01/26) Moderna Vaccine, mRNA, PF 0 09/04/2021,09/04/2020 COVID-19 (Pre-01/26) Pfizer Vaccine, mRNA, PF ,05/17/2020 [...] Sign Reading Time Taken Comments Blood Pressure 134/62 01/02/2025 8:33 AM EDT Pulse 71 01/02/2025 8:33 AM EDT Temperature 37.1 C (98.7 F) 01/02/2025 8:33 AM EDT Respiratory Rate 18 10/09/2023 11:08 AM EDT Oxygen Saturation 97% 01/02/2025 8:33 AM EDT Inhaled Oxygen Concentration - - Weight 78.9 kg (174 lb) 07/01/2024 8:30 AM EDT Height 175.3 cm (5' 9 ) 04/05/2024 7:57 AM EST Body Mass Index 25.7 04/05/2024 7:57 AM EST Plan of Treatment Upcoming Encounters Date Type Department Care Team (Late st Contact Info) Description 02/28/2025 9:00 AM EST Office Visit [facility] [address] [place] [address] Eddie Martins MD [address] [facility], [address] [place] [address] [email or web address] Health Maintenance Due Date Last Done Comments POTASSIUM LEVEL 1950 SMOKING Hx and SMOKELESS TOBACCO SCREENING 08/29/1963 HEPATITIS C SCREENING 1968 COLOGUARD 08/29/1995 FIT TEST 08/29/1995 FOBT 08/29/1995 SIGMOIDOSCOPY 08/29/1995 VIRTUAL COLONOSCOPY 08/29/1995 RSV VACCINE (1 - Risk 50-74 years 1-dose series) 2000 ABDOMINAL AORTIC ANEURYSM (AAA) SCREENING 08/29/2015 HEMOGLOBIN A1C 06/30/2019 12/30/2018 DIABETIC EYE EXAM 04/05/2024 INFLUENZA VACCINE (#1) 2024 12/28/2019, 2017 COVID-19 VACCINE ( season) 2024 09/04/2021, 09/04/2020, 06/07/2020, Additional history exists DEPRESSION SCREENING 03/29/2025 03/29/2024 CREATININE LEVEL 06/27/2025 06/27/2024 BLOOD PRESSURE 07/02/2025 01/02/2025 Adult Td,Tdap Booster 06/17/2028 06/17/2018 COLONOSCOPY 08/17/2034 [...] Procedure Name Priority Date/Time Associated Diagnosis Comments OUTSIDE LAB Routine 12/30/2024 11:45 AM EDT HM COLONOSCOPY FOR RESULT ENTRY ONLY Routine 08/17/2024 11:42 AM EDT COMPREHENSIVE METABOLIC PANEL (CMP) Routine 06/27/2024 11:32 AM EDT Stage 3b chronic 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, without long-term current use of insulin from Last 3 Months or Most Recently Relevant to Health Maintenance Results * Outside Lab (12/30/2024 11:45 AM EDT) Historical Provider LAB BLOOD BKR ORDERABLES Final Result * HM COLONOSCOPY FOR RESULT ENTRY ONLY (08/17/2024 11:42 AM EDT) Historical Provider HEALTH MAINTENANCE Final Result * Comprehensive metabolic panel (06/27/2024 11:32 AM EDT) Blood Eddie Martins MD LAB BLOOD BKR ORDERABLES Final R esult [address] [address] from Last 3 Months or Most Recently Relevant to Health Maintenance Insurance [employer] [facility] MEDIC[facility] PART A & B [employer] RE[employer] MEDICARE PART A & B [employer] MED[employer] PART A & B [employer] MEDICARE PART A & B [employer] MEDICARE PART A & B [employer] RE[employer] MEDICARE PART A & B Care Teams Acetone Recovery Worker Relationship Specialty Start Date End Date Eddie Martins MD [address] [place] [address] [address] [place] [address] [email or web address] PCP - General Family Medicine 04/05/24 Additional Source Comments The information contained in this document represents components of the legal health record. It is not the complete legal health record.[facility]
--- OUTSIDE RECORDS SUMMARY | 2025-02-27 06:04 | XMS_ITS | Encounter Summary ---
Author Organization [facility] Address [address] [place] [address] [place] [address] Phone Care Team Providers Care Expenditure Requisition Clerk Name Role Phone Arelis Severino MD Primary Care Provider Eddie Martins MD Primary Care Provider [phone] Encounter Details Date Type Department Care Team (Late Contact Info) Description 01/10/2021 Transcribe Orders Virtual Department [address] [place] [address] Arelis Severino MD [address] [place] [address] [place] [address] Encounter for laboratory testing for COVID-19 virus [...] Description 02/28/2025 9:00 AM EST [facility] [address] [place] [address] Eddie Martins MD [address] [facility], [address] [place], [place] [phone] documented as of this encounter Results * COVID-19 PCR Order (01/20/2021 10:38 AM EDT) COVID Testing Status Specimen received in analyzing lab. Results should be available within 24 to 48 hrs. [facility] Symptomatic? NO [facility] Other 01/20/2021 10:3 8 AM EDT 01/20/2021 5:50 PM EDT us Arelis Severino MD LAB GENERAL ORDERABLES Final Result [facility] [address] [place] [address] [facility] [address] [place] [phone] documented in this encounter Visit Diagnoses Diagnosis Encounter for laboratory testing for COVID-19 virus- Primary documented in this encounter Care Teams Expenditure Requisition Clerk Relationship Specialty Start Date End Date Arelis Severino MD [address] [place] [address] Dr Bol[place] [address] [place] [phone] PCP - General Internal Medicine 01/24/20 04/04/24 Eddie Martins MD [address] [place] [address], [address] [place] [address] [email or web address] PCP - General Family Medicine 04/05/24 documented as of this encounter Additional Source Comments The information contained in this document represents components of the legal health record. It is not the complete legal health record.[facility]
--- OUTSIDE RECORDS SUMMARY | 2025-02-27 06:04 | XMS_ITS | Encounter Summary ---
Author Organization [facility] Address [address] [place] [address] [place] [address] Phone Care Team Providers Care Hearing And Speech Assistant Name Role Phone Arelis Severino MD Primary Care Provider Eddie Martins MD Primary Care Provider [phone] Encounter Details Date Type Department Care Team (Late Contact Info) Description 01/18/2020 Transcribe Orders Virtual Department [address] [place] [address] Arelis Severino MD [address] [place] [address] [place] [address] Social History Tobacco Use Types Packs/Day Years [...] Description 02/28/2025 9:00 AM EST Office Visit [facility] [address] [place] [address] Eddie Martins MD [address] [place] [address] [address] [place], [place] [id number] [email or web address] documented as of this encounter Visit Diagnoses Not on filedocumented in this encounter Care Teams Hearing And Speech Assistant Relationship Specialty Start Date End Date Arelis Severino MD [address] [place] [address] Dr Jimenez BRIEN [phone] PCP - General Internal Medicine 01/24/20 04/04/24 Eddie Martins MD [address] [place] [address], [address] [place] [address] [email or web address] PCP - General Family Medicine 04/05/24 documented as of this encounter Additional Source Comments The information contained in this document represents components of the legal health record. It is not the complete legal health record.[facility]
--- OUTSIDE RECORDS SUMMARY | 2025-02-27 06:04 | XMS_ITS | Clinical Summary ---
Author Organization [facility] [address] [facility] Address [address] [place] [address] Phone Care Team Providers Care Drapery Hanger Name Role Phone Arelis Severino MD Primary Care Provider [phone] Surgical History Surgery Date Site/Laterality Comments OTHER SURGICAL HISTORY 2017 Right PROCEDURE: [place] THORACOSCOPY W/LOBECTOMY SINGLE LOBE; COMMENT: RUL lobectomy OTHER SURGICAL HISTORY 2012 PROCEDURE: COLONOSCOPY, SURGICAL Medical History Medical History Date Comments Lung cancer ([facility] V24, [facility] V28) 2017 DX:Lung cancer (HCC); COMMENT: RUL lung cancer - surgical resection Anxiety disorder DX:Anxiety diso rder BPH (benign prostatic hyperplasia) DX:BPH (benign prostatic hyperplasia) CKD (chronic kidney disease) DX: CKD (chronic kidney disease) Diverticulosis DX:Diverticulosi s Emphysema lung ([facility] V24, 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 V28) 2017 DX:Large cell neuroendocrin e carcinoma (HCC) Lumbar radiculopathy DX:Lumbar r adiculopathy Personal history of nicotine dependence DX:Personal history of nicotine dependence Tubular adenoma of colon 2012 DX:Tubu lar adenoma of colon Type 2 diabetes mellitus wit hout complications ([facility] V24, [facility] V28) DX:Type 2 max betes mellitus without complications ([facility]) COPD (chronic obstructive pu lmonary disease) ([facility] V24, [facility] V28) DX:COPD (chronic o bstructive pulmonary disease) ([facility]) Social History Tobacco Use Types Packs/Day Years Used Date Smoking Tobacco: Every Day Cigarettes 1 65.9 Started: 1959 Smokeless Tobacco: Never Alcohol Use [...] Date Last Done Comments Colorectal Cancer Screening: Colonoscopy 1950 Diabetes: Annual Foot Exam 1960 Diabetes: Annual Retina Eye Exam 1960 RSV Immunization Adult Patients (1 - Risk 50-74 years 1-dose series) 2000 Abdominal Aortic Aneurysm (AAA) Screen 05/06/2023 Cholesterol Screening (Lipid Panel) 05/06/2023 Falls Risk Assessment 05/06/2023 Hepatitis C [...] Signed Date: 05/11/2024 09:06 ET Workstation ID: [id number] Transcribed By: Self Edit Transcribed Date: 05/11/2024 [...] Signed Date: 05/11/2024 09:06 ET Workstation ID: [id number] Transcribed By: Self Edit Transcribed Date: 05/11/2024 09:03 ET us Sarah Stephen MD IMG CT PROCEDURES Final Result from Last 3 Months or Most Recently Relevant to Health Maintenance Insurance [place]ARE [employer] Care Teams Drapery Hanger Relationship Specialty Start Date End Date Arelis Severino MD [address] [place] [address] [place] [address] PCP - General Internal Medicine 04/21/24
[2025-02-27 10:08] LABS: MANUAL DIFF FLAG NO
[2025-02-27 10:16] LABS: Hematocrit 46.5 % (42.0-52.0); Hemoglobin 14.8 g/dl (14.0-18.0); Imm Gran Abs Auto 0.04 X10*3/uL (0.00-0.03); Imm Gran Pct Auto 0.4 % (0.0-0.4); Lymphocytes Absolute Auto 1.8 X10*3/uL (1.2-4.9); Mean Corpuscular HGB Conc 31.8 g/dl (31.0-36.0); Mean Corpuscular Hemoglobin 29.8 pg (27.0-33.0); Mean Corpuscular Volume 93.8 fL (80.0-98.0); NRBC Abs Auto 0.000 X10*3/uL (0.0-0.012); NRBC Pct Auto 0.0 /100WBC (0.0-0.2); Platelet Count 203 X10*3/uL (160-400); Red Blood Count 4.96 X10*6/uL (4.60-5.80); White Blood Count 9.1 X10*3/uL (4.8-10.8)
[2025-02-27 11:02] LABS: Alanine Aminotransferase 13 U/L (0-40); Albumin Level 4.4 g/dL (3.5-5.0); Alkaline Phosphatase 71 U/L (39-117); Anion Gap 11 (12-20); Aspartate Amino Transferase 16 U/L (5-37); Blood Urea Nitrogen 33 mg/dL (9-16); Calcium 9.6 mg/dL (8.4-10.2); Carbon Dioxide 28 mmol/L (22-29); Chloride 105 mmol/L (96-108); Cholesterol 137 mg/dL (<200); Estimated Glomerular Filt Rate 33; HDL Cholesterol 35 mg/dL (>40); Potassium 4.0 mmol/L (3.3-5.1); Sodium 140 mmol/L (135-145); Total Protein 6.9 g/dL (6.5-8.0); Triglycerides 162 mg/dL (<150)
== END 2025-02-27 06:02 | disposition home or self-care (01) ==
LOC: HO.HMGCLDS 06:01
PROVIDERS: PCP Family Medicine; Visit Provider Family Medicine
DX: I12.9 Hypertensive chronic kidney disease with stage 1 through stage 4 chronic kidney disease, or unspecified chronic kidney disease (principal); N18.32 Chronic kidney disease, stage 3b; E11.22 Type 2 diabetes mellitus with diabetic chronic kidney disease
CPT/HCPCS: 36415; 80053; 80061; 83036; 85025